=== PATIENT | male | born 1965 | race Caucasian/White ===

== ENCOUNTER 2016-11-11 18:06 | Inpatient (IN) ==
[2016-11-11] MEDS ORDERED: Furosemide 40 MG/4 ML VIAL IVP ONE (20:38)
--- NOTE | 2016-11-11 20:43 | Emergency Department Note ---
Disposition Clinical Impression: Elevated troponin CHF exacerbation Qualifiers: Congestive heart failure type: unspecified congestive heart failure type Qualified Code(s): I50.9 - Heart failure, unspecified Disposition: Admitted As Inpatient Condition: Good Time of Disposition: 23:17 SOB HPI - General Chief Complaint: ED Shortness of Breath/Dyspnea Stated Complaint: swollen/sob Time Seen by Provider: 11/11/16 20:39 Source: patient Mode of arrival: ambulatory Limitations: no limitations Nursing Notes Reviewed: Yes Vital Signs Reviewed: Yes - History of Present Illness 51 year old male with HX of CHF and CAD states taht he was seen by his primary care doctor and sent in for CHF evaluation. Patient states that the last itme her was admitted to the hospital for his CHF was a few months ago. Giselle states that today is not as severe as it has been in the past. Gina states he has chest pain midsteral and pressure type and does feel increasingl dyspneic without being hypoxic. he does not wear oxygen at home; dyspnea is worse with exertion. Giselle states that he has had increased swelling to the lower extremities and that his abdomen feels more swollen than usual. Giselle takes 40mg Lasix a day. - Related Data Home Medications Medication Instructions Recorded Confirmed Hydroxyzine HCl 25 mg PO Q8H 02/10/16 11/11/16 Insulin ASPART [NovoLOG] 10 unit SQ PRN PRN 02/11/16 11/11/16 Insulin Glargine [Lantus] 30 units SQ HS 02/11/16 11/11/16 Potassium Chloride [Klor-Con 10] 10 meq PO DAILY 06/17/16 11/11/16 Iron Polysaccharide Complex 150 mg PO DAILY 07/09/16 11/11/16 [Ferrex 150] Isosorbide MONOnitrate (24 HR) 60 mg PO DAILY 07/09/16 11/11/16 [Imdur] Atorvastatin [Lipitor] 40 mg PO HS 11/11/16 11/11/16 Cholecalciferol (Vitamin D3) 2,000 unit PO DAILY 11/11/16 11/11/16 [Vitamin D] Spironolactone [Aldactone] 50 mg PO DAILY 11/11/16 11/11/16 Previous Rx's Medication Instructions Recorded Aspirin Enteric Coated [Aspirin EC] 81 mg PO DAILY #90 tablet. 08/22/15 Sertraline [Zoloft] 50 mg PO DAILY #60 tablet 08/22/15 Furosemide [Lasix] 40 mg PO DAILY #30 tablet 02/14/16 Metoprolol [Lopressor] 75 mg PO BID #60 tablet 02/14/16 Allergies Allergy/AdvReac Type Severity Reaction Status Date / Time No Known Allergies Allergy Verified 11/11/16 18:28 Constitutional: Denies: fever, chills, weakness, weight change Eyes: Denies: eye pain, eye discharge, vision change ENT ED: Denies: ear pain, throat pain, dental pain, hearing loss, epistaxis, congestion, dysphagia Cardiovascular: Reports: chest pain, dyspnea on exertion. Denies: palpitations , edema, syncope Respiratory: Reports: cough, dyspnea. Denies: wheezes, hemoptysis, stridor Gastrointestinal: Denies: abdominal pain, nausea, vomiting, diarrhea, constipation, hematemesis, melena, hematochezia Genitourinary: Denies: urgency, dysuria, frequency, hematuria Musculoskeletal: Denies: back pain, neck pain, arthralgia, myalgia Integumentary: Denies: rash, abrasion, lesions Neurological: Denies: headache, weakness, numbness, paresthesias, confusion, abnormal gait, vertigo Psychiatric: Denies: anxiety, depression, suicidal thoughts, homicidal thoughts , auditory hallucinations, visual hallucinations Endocrine: Denies: fatigue Hematological/Lymphatic: Denies: easy bleeding, easy bruising Allergic/Immunologic: Denies: facial swelling, urticaria Past Medical History - Past Medical History Medical history: Reports: CHF, CVA, diabetes, hyperlipidemia, hypertension, renal disease, TIA Surgical history: Reports: appendectomy, cholecystectomy, orthopedic, other ( Back surgery, ACL repair), other (Facial plastic repair) Psychiatric history: Reports: anxiety, depression - Social History Smoking Status: Former smoker Smokeless Tobacco Status: No Alcohol use: Reports: none Drug use: Reports: none Physical Exam - General Limitations: no limitations General appearance: alert, in no apparent distress - Head Head exam: atraumatic, normocephalic, normal inspection - Eye Eye exam: Present: normal appearance, PERRL, EOMI - Expanded Eye Exam Pupils: Left: reactive - ENT ENT exam: normal exam, normal oropharynx, mucous membranes moist, other (facial reconstruction of nose and mouth; chronic) - Expanded ENT Exam External ear exam: Present: normal external inspection Mouth exam: Present: normal external inspection Teeth exam: Present: normal inspection Throat exam: Present: normal inspection - Neck Neck exam: Present: normal inspection, full ROM, trachea midline - Chest Chest inspection: Present: normal inspection, symmetric chest wall rise - Respiratory Respiratory exam: Present: normal lung sounds bilaterally - Cardiovascular Cardiovascular exam: Present: regular rate, normal rhythm, normal heart sounds - Abdominal Exam Abdominal exam: Present: soft, Non-Tender. Absent: tenderness, distention, guarding, rebound, rigidity - Extremities Exam Extremities exam: Present: normal inspection, full ROM. Absent: tenderness, pedal edema - Expanded Upper Extremity Exam Shoulder exam: Present: normal inspection, full ROM Arm exam: Present: normal inspection, full ROM Elbow exam: Present: normal inspection, full ROM Forearm/Wrist exam: Present: normal inspection, full ROM Hand exam: Present: normal inspection, full ROM Vascular exam: Normal: capillary refill, radial pulse - Expanded Lower Extremity Exam Hip/Pelvis exam: Present: normal inspection, full ROM Upper leg exam: Present: normal inspection, full ROM Knee exam: Present: normal inspection, full ROM Lower leg exam: Present: normal inspection, full ROM, swelling (pedal edema (+) 3) Ankle exam: Present: normal inspection, full ROM Foot/toe exam: Present: normal inspection, full ROM Neurovascular/Tendon exam: Absent: motor deficit, sensory deficit, tendon deficit - Back Exam Back exam: Present: normal inspection, full ROM. Absent: tenderness - Neurological Exam Neurological exam: Present: alert, oriented X3 - Expanded Neurological Exam Patient oriented to: Present: person, place, time Coma Scale Eye Opening: Spontaneous Coma Scale Motor Response: Obeys Commands Coma Scale Verbal Response: Oriented Coma Scale Total: 15 - Psychiatric Psychiatric exam: Present: normal affect, normal mood - Skin Skin exam: Present: warm, dry, intact, normal color Course Course Narrative: we will do a cardiac workup on patient and IV lasix therapy - Reevaluation(s) Reevaluation #1: updated patinet and family on results and they are agreeable to admission. Time: 23:16 - Consultations Consultation #1: discussed case wibernice Meyers and he accepts patiet for admission Time: 23:16 Vital Signs Temperature 97.6 F 11/11/16 18:25 Pulse Rate 72 11/11/16 18:25 Respiratory Rate 16 11/11/16 18:25 Blood Pressure 129/83 11/11/16 18:25 O2 Sat by Pulse Oximetry 98 11/11/16 18:25 Temperature 98.5 F 11/12/16 00:11 Pulse Rate 75 11/12/16 00:11 Respiratory Rate 17 11/12/16 00:11 Blood Pressure 171/112 11/12/16 00:11 O2 Sat by Pulse Oximetry 98 11/12/16 00:11 Oxygen Delivery Oxygen Delivery Room Air Shortness of Breath/Dyspnea - Lab Data Result diagrams: 11/11/16 20:27 11/11/16 20:27 Lab Results 11/11/16 11/11/16 11/11/16 Range/Units 20:27 20: 20:27 WBC 6.5 (4.3-11.1) K/mcL RBC 3.91 L (4.19-5.50) M/mcL Hgb 10.0 L (12.9-16.9) g/dL Hct 32.8 L (37.5-50.1) % MCV 83.9 (83.0-100.0) fL MCH 25.6 L (28.0-33.3) pg MCHC 30.5 L (31.6-35.5) g/dL RDW 15.4 H (11.5-14.5) % Plt Count 251 (140-400) K/mcL MPV 11.5 (9.4-12.4) fL Immature Gran % 0.6 (0-4) % Seg Neutrophils % 67.3 % Lymphocytes % 21.0 % Monocytes % 9.1 % Eosinophils % 1.4 % Basophils % 0.6 % Neutrophils # 4.4 (1.6-8.9) K/mcL Lymphocytes # 1.4 (0.6-4.6) K/mcL Monocytes # 0.6 (0.0-1.3) K/mcL Eosinophils # 0.1 (0.0-0.6) K/mcL Basophils # 0.0 (0.0-0.2) K/mcL PT 12.3 H (9.4-12.1) Seconds INR 1.1 APTT 28.9 (26.0-36.0) Seconds Sodium 143 (136-145) mEq/L Potassium 3.5 (3.5-4.5) mEq/L Chloride 111 H (98-109) mEq/L Carbon Dioxide 23 (19-29) mEq/L BUN 30 H (8-26) mg/dL Creatinine 1.80 H (0.72-1.25) mg/dL Est GFR ( Amer) 48 L (> 60) Est GFR (Non-Af Amer) 40 L (> 60) BUN/Creatinine Ratio 17 (6-26) Glucose 62 L (70-99) mg/dL Calculated Osmolality 300 (280-300) Calcium 8.6 (8.6-10.8) mg/dL Troponin I (0-0.03) ng/mL B-Natriuretic Peptide (0-100) pg/mL 11/11/16 11/11/16 Range/Units 20:27 20:27 WBC (4.3-11.1) K/mcL RBC (4.19-5.50) M/mcL Hgb (12.9-16.9) g/dL Hct (37.5-50.1) % MCV (83.0-100.0) fL MCH (28.0-33.3) pg MCHC (31.6-35.5) g/dL RDW (11.5-14.5) % Plt Count (140-400) K/mcL MPV (9.4-12.4) fL Immature Gran % (0-4) % Seg Neutrophils % % Lymphocytes % % Monocytes % % Eosinophils % % Basophils % % Neutrophils # (1.6-8.9) K/mcL Lymphocytes # (0.6-4.6) K/mcL Monocytes # (0.0-1.3) K/mcL Eosinophils # (0.0-0.6) K/mcL Basophils # (0.0-0.2) K/mcL PT (9.4-12.1) Seconds INR APTT (26.0-36.0) Seconds Sodium (136-145) mEq/L Potassium (3.5-4.5) mEq/L Chloride (98-109) mEq/L Carbon Dioxide (19-29) mEq/L BUN (8-26) mg/dL Creatinine (0.72-1.25) mg/dL Est GFR ( Amer) (> 60) Est GFR (Non-Af Amer) (> 60) BUN/Creatinine Ratio (6-26) Glucose (70-99) mg/dL Calculated Osmolality (280-300) Calcium (8.6-10.8) mg/dL Troponin I 0.21 H* (0-0.03) ng/mL B-Natriuretic Peptide 2773 H (0-100) pg/mL - EKG Data EKG attestation: Yes I reviewed and interpreted this EKG. EKG results narrative: NSR with rate of 73. NO STEMiI. LAE. no change from 02/10/16. normal intervals. 1833 Critical Care Time Critical Care Time: Yes Total Critical Care Time: 35 Attestation: Critical care performed: Time is exclusive of separately billable procedures. Time includes: direct patient care, patient reassessment, coordination of patient care, interpretation of data (laboratory data, radiology data, and respiratory data), review of patient's medical records, medical consultation and documentation of patient care. Procedures included in critical care time: Procedures excluded from critical care time: Attestation Statement - Attestation Attestation: I, Osman Agarwal MD, personally evaluated this patient and discussed their management with the resident physician. I reviewed the resident's note and agree with the documented findings, medical decision making, and plan of care. 51-year-old male presents to the emergency department with complaint of some increasing swelling of his lower extremities over the past month and also primarily complains of increasing shortness of breath over the past 2 weeks. He states he is been unable to lie flat at night due to shortness of breath. He does admit to some mid substernal chest pressure and discomfort intermittently but denies any chest pain at present. No cough or fever. Patient was seen today by his PCP and referred here for evaluation. On examination patient is a well-developed well-nourished male in no acute distress he is alert and oriented 3. There is no cyanosis or diaphoresis. Patient does appear very pale. Chest is nontender to palpation. Breath sounds are slightly decreased in the bases bilaterally but equal bilaterally with no rales or wheezes noted. Heart regular rate and rhythm. Abdomen is soft and nontender with normal bowel sounds. 2+ pitting edema of the lower extremities bilaterally. Labs reviewed. Elevated troponin noted at 0.21. BNP 2773. Chest x-ray shows bilateral pleural effusions with bibasilar airspace disease, atelectasis versus pneumonia. No acute ischemic changes on EKG. The hospitalist, Dr. Meyers, was consulted and accepted admission of the patient.
[2016-11-11 21:04] LABS: Basophils % 0.6 %; Eosinophils # 0.1 K/mcL (0.0-0.6); Eosinophils % 1.4 %; Hematocrit 32.8 % (37.5-50.1); Immature Granulocytes % 0.6 % (0-4); Lymphocytes # 1.4 K/mcL (0.6-4.6); Mean Corpuscular HGB Conc 30.5 g/dL (31.6-35.5); Mean Corpuscular Hemoglobin 25.6 pg (28.0-33.3); Mean Corpuscular Volume 83.9 fL (83.0-100.0); Mean Platelet Volume 11.5 fL (9.4-12.4); Monocytes # 0.6 K/mcL (0.0-1.3); Monocytes % 9.1 %; Neutrophils # 4.4 K/mcL (1.6-8.9); Platelet Count 251 K/mcL (140-400); Red Blood Count 3.91 M/mcL (4.19-5.50); Red Cell Distribution Width 15.4 % (11.5-14.5); Segmented Neutrophils % 67.3 %
[2016-11-11 21:10] LABS: INR 1.1; Prothrombin Time 12.3 Seconds (9.4-12.1)
[2016-11-11 21:13] LABS: Activated Partial Thrombo Time 28.9 Seconds (26.0-36.0)
[2016-11-11 21:17] LABS: Calcium 8.6 mg/dL (8.6-10.8); Potassium 3.5 mEq/L (3.5-4.5)
[2016-11-11] MEDS ORDERED: Aspirin 81 MG TAB.CHEW PO ONE (21:31)
--- NOTE | 2016-11-11 23:40 | Internal Med History&Physical ---
<Adam Hargrove - Last Filed: 11/12/16 08:53> Date of Encounter: 11/11/16 Time of Encounter: 23:38 Assessment and Plan (1) CHF (congestive heart failure) Current visit: Yes Status: Acute Significant pitting edema. Anasarca. BNP elevated. Not in significant distress -Cr elevated. However, feel its important to administer lasix. -ECHO on 11/20/15 shows 50% EV and moderate diastolic dysfunction -Consider metolazone or other diuretic Plan -Lasix, fluid resitrictions. Strict I and O. -ECHO to evaluate changes Qualifiers: Congestive heart failure type: diastolic Congestive heart failure chronicity: unspecified congestive heart failure chronicity Qualified Code(s) : I50.30 - Unspecified diastolic (congestive) heart failure (2) Suicide ideation Current visit: Yes Status: Acute -Patient states that he has had pervious thoughts of suicide, but does not have current thoughts of suicide -has spoken to medical delivery technician in the past, does not wish to talk to another professional about it -Patient not having current thoughts of suicide or harming others. Do not feel like its needed to have suicide precautions. -Did talk with psychiatry consult. They are aware and agree its not necessary to put patient on active suicide precautions (3) CKD (chronic kidney disease), stage III Current visit: Yes Status: Acute -Sees Dr. Sepulveda -Per patient last appointment a couple of months ago -CKD due to uncontrolled DM vs nephrotoxic drugs Plan -Stop renal toxic drugs (4) Diabetes Current visit: No Status: Chronic -Continue home medication-insulin Qualifiers: Diabetes mellitus type: type 2 Diabetes mellitus complication status: with circulatory complication Diabetes mellitus complication detail: with other circulatory complications Diabetes mellitus residential insulin use: with technician terminal and repeater use Qualified Code(s): E11.59 - Type 2 diabetes mellitus with other circulatory complications; Z79.4 - correction (current) use of insulin (5) DVT prophylaxis Current visit: No Status: Acute -Hold for now due to anemia (6) Elevated troponin Current visit: Yes Status: Acute -Elevated. Due to CKD III. Patient not complaining of CP. EKG no changes. -No need for cardio consult at this time. Will trend trop. (7) Anemia Current visit: Yes Status: Acute -Lower Hgb compared to previous -Patient complains of dark stools -Will get stool studies -Colonoscopy within 3 months that only showed polyps with repeat in 5-10 years -Did not see EGD. Consider getting EDG and starting protonix -Anemia due to CKD? History of iron deficiency anemia? Plan -Trend H and H. Transfuse if <7 and GI consult for EGD. -Await occult stool test -Get iron studies Qualifiers: Anemia type: unspecified type Qualified Code(s): D64.9 - Anemia, unspecified Internal Medicine - H&P: HPI Chief complaint: SOB, bilateral swollen legs Admitted From: Emergency Dept Plans for Post Hospital Care: Home History of present illness: Mr. Richter is a 51 year old male, PMH CHF, CAD, DM, CVA, HLD, HTN, CKD III, c/ c worsening bilateral pitting edema and SOB. Edema began 1 month ago and SOB began 2 weeks ago. SOB worse with activity and when laying flat. Relieved by sitting up and staying still. Denies F/N/V/CP/Abdominal pain/flank pain/urinary complaints/extremity pain. Did admit to chest discomfort in the ED, but no longer has that. He had previous admission for CHF exacerbation last year. Prescribed lasix. Has been taking medication. He was sent here from his PCP's office. Past Med Surg Social Fam HX - Past Medical History Medical history: CHF, CVA, diabetes, hyperlipidemia, hypertension, renal disease , TIA Psychiatric history: anxiety, depression - Past Surgical History Surgical History: appendectomy, cholecystectomy, orthopedic, other (Back surgery , ACL repair), other (Facial plastic repair) - Social History Smoking Status: Former smoker Smokeless Tobacco Status: No Alcohol use: none Drug use: none - Family History Father Living Status: Hx Family Cardiac Disorders: Yes Hx Family Respiratory Disorders: No Hx Family Cancer: No Hx Family GI Disorders: No Hx Family Endocrine Disorder: No Hx Family Neuromuscular Disorders: No Hx Family Neurologic Disorders: No Hx Family HEENT Disorders: No Hx Family Autoimmune Disorders: No Mother Family Member Ethnicity: Non- Twin of Family Member: Yes, Fraternal Living Status: Hx Family Cardiac Disorders: Yes Hx Family Respiratory Disorders: No Hx Family Cancer: No Hx Family GI Disorders: Yes Hx Family Endocrine Disorder: Yes Hx Family Neuromuscular Disorders: Yes Hx Family Neurologic Disorders: No Hx Family HEENT Disorders: No Hx Family Autoimmune Disorders: No Internal Medicine - H&P: Meds Aspirin Enteric Coated [Aspirin EC] 81 mg PO DAILY #90 tablet. 08/22/15 [Rx] Sertraline [Zoloft] 50 mg PO DAILY #60 tablet 08/22/15 [Rx] Hydroxyzine HCl 25 mg PO Q8H 02/10/16 [History] Insulin ASPART [NovoLOG] 10 unit SQ PRN PRN 02/11/16 [History] Insulin Glargine [Lantus] 30 units SQ HS 02/11/16 [History] Furosemide [Lasix] 40 mg PO DAILY #30 tablet 02/14/16 [Rx] Metoprolol [Lopressor] 75 mg PO BID #60 tablet 02/14/16 [Rx] Potassium Chloride [Klor-Con 10] 10 meq PO DAILY 06/17/16 [History] Iron Polysaccharide Complex [Ferrex 150] 150 mg PO DAILY 07/09/16 [History] Isosorbide MONOnitrate (24 HR) [Imdur] 60 mg PO DAILY 07/09/16 [History] Atorvastatin [Lipitor] 40 mg PO HS 11/11/16 [History] Cholecalciferol (Vitamin D3) [Vitamin D] 2,000 unit PO DAILY 11/11/16 [History] Spironolactone [Aldactone] 50 mg PO DAILY 11/11/16 [History] Allergies No Known Allergies Allergy (Verified 11/11/16 18:28) All Systems PM: A 10-system review of systems was performed and is negative for pertinent findings except as documented above in the HPI. - Constitutional Constitutional: no chills, no fever(s), no night sweats - Cardiovascular Cardiovascular ROS IM: other (admitted to discomfort in ED, however not having discomfort now. ), no chest pain, no diaphoresis, no dyspnea, no lightheadedness , no palpitations, no syncope - Constitutional Vitals: Temp Pulse Resp BP Pulse Ox 97.6 F 82 20 142/90 100 11/11/16 18:25 11/11/16 22:39 11/11/16 22:39 11/11/16 22:39 11/11/16 22:39 General appearance: Present: A&O X 3, no acute distress, answers questions appropriately - Head Head exam: Absent: atraumatic Additional comments: Plastic surgery on face. 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 - Respiratory Respiratory exam: Present: rales (mild), wheezes - Cardiovascular Cardiovascular exam: Present: RRR, +S1, +S2. Absent: diastolic murmur, gallop, rubs, systolic murmur - GI/Abdominal GI/Abdominal exam: Present: normal bowel sounds, soft, no peritoneal signs Additional comments: Harden area on the umbilicus that was not there previously. Tender sometimes. - Expanded Lower Extremities Exam 1 - pitting edema - Psychiatric Psychiatric exam: Present: suicidal ideation (per nurse, patient had thoughts of harming himself. Doesnt now. ) - Other Additional findings: marked pitting edema from Mid thigh and down. Sever in the feet. -No CVA tenderness. Urinal:yellow, no hematuria noted or clots. Internal Med - H&P Results - Labs CBC & Chem 7: 11/12/16 04:50 11/12/16 04:50 Labs: Short CBC 11/11/16 Range/Units 20:27 WBC 6.5 (4.3-11.1) K/mcL Hgb 10.0 L (12.9-16.9) g/dL Hct 32.8 L (37.5-50.1) % Plt Count 251 (140-400) K/mcL Neutrophils # 4.4 (1.6-8.9) K/mcL BMP 11/11/16 20:27 Sodium 143 Potassium 3.5 Chloride 111 H Carbon Dioxide 23 BUN 30 H Creatinine 1.80 H Glucose 62 L Calcium 8.6 Cardiac Enzymes 11/11/16 Range/Units 20:27 Troponin I 0.21 H* (0-0.03) ng/mL - Impressions ITS Impressions Chest X-Ray 11/11/16 18:31 IMPRESSION: Bilateral pleural effusions with associated basilar airspace disease, atelectasis versus pneumonia. D/ / Bernabe Espinal MD / Bernabe Espinal MD Interpreting Provider: Bernabe Espinal MD <Jarad Conrad - Last Filed: 11/17/16 05:50> Date of Encounter: 11/11/16 Internal Medicine - H&P: HPI Admitted From: Emergency Dept Plans for Post Hospital Care: Home History of present illness: Mr. Richter is a 51 year old male admitted to [facility] via the emergency department presented with concerns with generalized edema and difficulty breathing. Preliminary impressions suggest acute on chronic combined systolic and diastolic congestive heart failure exacerbation. Concomitant demand ischemia of myocardium with troponin elevation type II non- ST elevation [place] with associated stage III ELVIA/CKD. The patient presents increased risk for major acute coronary event, further acute clinical decline and morbidity due to his presenting chief complaints, clinical findings and comorbidities. Workup and treatments will proceed comprehensively. The patient was visited and interviewed and examined. I examined this patient and my medical decision-making was reviewed with the Resident Physician, Dr. Adam Hargrove. For this encounter, I have reviewed the documentation, treatment plan, and medical decision making. I have had face to face time with this patient. Cumulative laboratory and radiographic database was reviewed and considered and discussed. I agree with the documented findings, disposition and treatment plan as described except to the extent set forth below. Acute coronary syndrome and acute heart failure decompensation protocols/ surveillance initiated. Plan of care has been reviewed and discussed in detail with patient. Questions addressed. Consultative opinions will be sought as clinical circumstances justify. Hospital course will be dependent upon clinical findings, treatment response and /or consultative interventions. Given the patient's presenting concerns, past medical history, clinical findings and symptoms, he is admitted at this time to undergo further evaluation and disposition. Condition is serious. Prognosis is guarded. CODE STATUS is full. Past Med Surg Social Fam HX - Past Medical History Source: old records reviewed Medical history: arthritis, CHF, CVA, diabetes, hyperlipidemia, hypertension, renal disease, TIA, other Psychiatric history: anxiety, depression, other - Past Surgical History Surgical History: appendectomy, cholecystectomy, orthopedic, other, other - Social History Smoking Status: Former smoker Alcohol use: none, unknown Drug use: none, unknown Occupational status: unemployed Current living situation: Home, With Family Activity Level: Independent ambulation, Mostly sedentary Recent Out of Country Travel Within the Last 8 Weeks: No Exposure or Possible Exposure to Illness During Travel: No All Systems PM: A 10-system review of systems was performed and is negative for pertinent findings except as documented above in the HPI. - Constitutional Constitutional: as per HPI - EENT Eyes: as per HPI Ears: as per HPI Nose, mouth and throat: as per HPI - Cardiovascular Cardiovascular ROS IM: as per HPI - Respiratory Respiratory: as per HPI - Gastrointestinal Gastrointestinal: as per HPI - Genitourinary Genitourinary ROS male: as per HPI - Musculoskeletal Musculoskeletal ROS IM: as per HPI - Integumentary Integumentary IM: as per HPI - Neurological Neurological ROS: as per HPI - Psychiatric Psychiatric: as per HPI - Endocrine Endocrine IM: as per HPI - Hematologic/Lymphatic Hematologic/Lymphatic: as per HPI - Allergic/Immunologic Allergic/Immunologic: as per HPI - Constitutional Vitals: Temp Pulse Resp BP Pulse Ox 97.2 F L 74 16 148/100 96 11/12/16 07:12 11/12/16 07:12 11/12/16 07:12 11/12/16 07:12 11/12/16 07:12 Vital Signs Temp Pulse Resp BP Pulse Ox 11/12/16 07:12 97.2 F L 74 16 148/100 96 11/12/16 04:39 98.5 F 70 26 89 11/12/16 00:11 98.5 F 75 17 171/112 98 11/11/16 23:54 98 11/11/16 23:42 20 107/55 11/11/16 22:39 82 20 142/90 100 11/11/16 21:44 74 18 139/95 94 11/11/16 21:23 75 18 146/96 95 11/11/16 20:57 73 18 130/95 97 11/11/16 18:25 97.6 F 72 16 129/83 98 Intake and Output 11/11/16 11/12/16 11/12/16 23:59 07:59 15:59 Intake Total 360 / 360 Output Total 1200 / 1200 400 / 400 Balance -1200 / -1200 -40 / -40 Intake: Oral 360 / 360 Output: Urine 1200 / 1200 400 / 400 Other: Meal Breakfast Percent of Meal Consumed 100% Weight 88.451 kg 87 kg Blood Glucose* 99 Patient Weight 11/12/16 23:59 Weight 87 kg Internal Med - H&P Results - Labs CBC & Chem 7: 11/17/16 04:52 11/17/16 04:52 Labs: Short CBC 11/12/16 Range/Units 04:50 Hgb 10.2 L (12.9-16.9) g/dL Hct 34.2 L (37.5-50.1) % BMP 11/12/16 04:50 Sodium 142 Potassium 3.7 Chloride 109 Carbon Dioxide 23 BUN 30 H Creatinine 1.84 H Glucose 124 H Calcium 8.5 L Liver Function 11/12/16 Range/Units 04:50 Total Bilirubin 0.6 (0.2-1.2) mg/dL Direct Bilirubin 0.3 (0.0-0.5) mg/dL AST 13 (5-34) Units/L ALT 11 (0-55) Units/L Alkaline Phosphatase 95 (38-126) Units/L Albumin 2.9 L (3.5-5.0) g/dL Abnormal lab results RBC 3.91 M/mcL (4.19-5.50) L 11/11/16 20:27 Hgb 10.2 g/dL (12.9-16.9) L 11/12/16 04:50 Hct 34.2 % (37.5-50.1) L 11/12/16 04:50 MCH 25.6 pg (28.0-33.3) L 11/11/16 20:27 MCHC 30.5 g/dL (31.6-35.5) L 11/11/16 20:27 RDW 15.4 % (11.5-14.5) H 11/11/16 20:27 PT 12.3 Seconds (9.4-12.1) H 11/11/16 20:27 BUN 30 mg/dL (8-26) H 11/12/16 04:50 Creatinine 1.84 mg/dL (0.72-1.25) H 11/12/16 04:50 Est GFR ( Amer) 47 (> 60) L 11/12/16 04:50 Est GFR (Non-Af Amer) 39 (> 60) L 11/12/16 04:50 Glucose 124 mg/dL (70-99) H 11/12/16 04:50 Calculated Osmolality 302 (280-300) H 11/12/16 04:50 Calcium 8.5 mg/dL (8.6-10.8) L 11/12/16 04:50 Iron 28 mcg/dL (65-175) L 11/12/16 04:50 % Saturation 10 % (20-55) L 11/12/16 04:50 Troponin I 0.21 ng/mL (0-0.03) H* 11/11/16 20:27 B-Natriuretic Peptide 2773 pg/mL (0-100) H 11/11/16 20:27 Albumin 2.9 g/dL (3.5-5.0) L 11/12/16 04:50 Albumin/Globulin Ratio 0.9 (1.1-2.2) L 11/12/16 04:50 Chest X-Ray 11/11/16 18:31 IMPRESSION: Bilateral pleural effusions with associated basilar airspace disease, atelectasis versus pneumonia. D/ / Bernabe Espinal MD / Bernabe Espinal MD Interpreting Provider: Bernabe Espinal MD - Attending Attestation My signature below is to certify that this patient is under my care and that I, or the Resident Physician working with me, has had a [id number] encounter with this patient.
[2016-11-12] MEDS ORDERED: Furosemide 40 MG/4 ML VIAL IVP ONE (01:03)
[2016-11-12] MEDS: hydrOXYzine pamoate 25 MG CAPSULE PO SCH ×3 (02:44→16:48)
[2016-11-12 06:28] LABS: Hematocrit 34.2 % (37.5-50.1); Hemoglobin 10.2 g/dL (12.9-16.9)
[2016-11-12 06:47] LABS: Albumin 2.9 g/dL (3.5-5.0); Albumin/Globulin Ratio 0.9 (1.1-2.2); Bilirubin,Direct 0.3 mg/dL (0.0-0.5); Bilirubin,Indirect 0.3 mg/dL (0.0-1.2); Bilirubin,Total 0.6 mg/dL (0.2-1.2); Calcium 8.5 mg/dL (8.6-10.8); Globulin 3.3 g/dL (2.4-3.5); Potassium 3.7 mEq/L (3.5-4.5); Total Protein 6.2 g/dL (6.0-8.3)
[2016-11-12] MEDS ORDERED: Perflutren Lipid Microsphere 1.3 ML in 0.9 % Sodium Chloride 8.7 ML IVP ONE (06:50)
[2016-11-12] MEDS: Iron Polysaccharide Complex 150 MG CAPSULE PO SCH (08:11)
[2016-11-12] MEDS: Isosorbide MONOnitrate (24 HR) 60 MG TAB.ER.24H PO SCH (08:11)
[2016-11-12] MEDS: Cholecalciferol (D-3) 1,000 UNIT TABLET PO SCH (08:12)
[2016-11-12] MEDS ORDERED: Insulin LISPRO 300 UNITS/3 ML VIAL SQ PRN (09:00)
[2016-11-12] MEDS ORDERED: *HR* OxyCODONE Immed Rel 5 MG TABLET PO PRN (09:32)
[2016-11-12] MEDS ORDERED: Acetaminophen 325 MG TABLET PO PRN (09:32)
[2016-11-12] MEDS ORDERED: *HR* Promethazine 25 MG/ML VIAL IVP PRN (09:32)
[2016-11-12] MEDS ORDERED: *HR* Morphine 2 MG/ML SYRINGE IVP PRN (09:32)
[2016-11-12] MEDS ORDERED: Naloxone 0.4 MG/ML INJ IVP PRN (09:32)
[2016-11-12] MEDS ORDERED: Benzonatate 100 MG CAPSULE PO PRN (09:40)
[2016-11-12] MEDS ORDERED: Ipratropium/Albuterol Neb 3 ML IH PRN (09:40)
[2016-11-12] MEDS ORDERED: Albuterol 2.5 MG/3 ML NEBULIZER IH PRN (09:40)
[2016-11-12] MEDS ORDERED: Pantoprazole 40 MG VIAL IVP SCH (09:45)
[2016-11-12 10:41] LABS: Hematocrit 32.1 % (37.5-50.1); Hemoglobin 9.9 g/dL (12.9-16.9)
--- NOTE | 2016-11-12 12:53 | ECHO - Doppler Report ---
Echocardiogram Name: Neema Richter Date of Study: 11/12/2016 Date: 1965 Ht: 71.0 in Medical Record#: [id number] Age: 51 Wt: 191.0 lb Gender: Male BSA: 2.07 Order #: [id number] Location: [facility] Room #: [id number] Reading Physician: Francisco Javier Byrd DO, OPAL AGUILAR FASNC [employer] Trades Worker: Rosario Myers Ordering Physician: Adam Hargrove DO Primary Physician: Belem Arroyo CNP Indications: Congestive heart failure, Elevated troponins Impressions: LVEF 35%. Normal LV chamber size. Mild concentric left ventricular hypertrophy. Segmental left ventricular systolic dysfunction. Moderate left ventricular diastolic dysfunction. Normal right ventricular size with mild hypokinesis. Mild mitral regurgitation. No evidence of pulmonary hypertension identified. RVSP not well obtained and could be underestimated. Pleural effusion noted. Compared to prior reports, LV function has decreased. Left Ventricular Wall Motion: Rest Echo Findings The apex, apical inferior, apical anterior, apical septal, apical lateral and mid anterior septal bhagat were hypokinetic. All other wall segments showed normal motion. Findings: Study Quality * Technically sub-optimal due to poor echocardiographic windows. ECG Findings * Normal sinus rhythm. Left Ventricle * LVEF 35%. * Normal LV chamber size. Mild concentric left ventricular hypertrophy. * Segmental left ventricular systolic dysfunction. * Moderate left ventricular diastolic dysfunction. Right Ventricle * Normal right ventricular size with mild hypokinesis. Left Atrium * Mildly dilated left atrium. Right Atrium * Mildly dilated right atrium. Interatrial Septum * Interatrial septum not well evaluated. Aortic Valve * Trileaflet aortic valve with normal function. * No aortic regurgitation. * No aortic stenosis. Mitral Valve * Normal mitral valve structure. * Mild mitral regurgitation. * No mitral stenosis. Tricuspid Valve * Normal tricuspid valve structure and function. * Trace tricuspid regurgitation. * No evidence of pulmonary hypertension identified. RVSP not well obtained and could be underestimated. Pulmonic Valve * Normal pulmonic valve structure and function. * No pulmonic regurgitation. Aorta * Normally sized aortic root. Pericardium * The pericardium appears normal. IVC * The IVC is dilated. * < 50% respiratory change. Pulmonary Artery * Normal visualized portions of the main pulmonary artery. Pleural Effusion * Pleural effusion noted. History Hypertension Diabetes Hypercholesteremia Family History of CAD 11/20/15 a Previous Echo was performed. Measurements: BP: 171/ 112 2D Normal Values RVIDd: 3.10 cm <2.7 cm IVSd: 1.60 cm 0.6 - 1.0 cm LVIDd: 5.00 cm 3.7 - 5.6 cm LVPWd: 1.30 cm 0.6 - 1.1 cm LVIDs: 4.20 cm 1.5 - 3.6 cm AO: 2.70 cm < 4.0 cm LA: 3.80 cm 2.0 - 4.0cm %FS: 16.00 cm >25 % LA volume: 27 Mitral Valve Peak E:.89 m/sec Peak A:.40 m/sec E/A Ratio:2.2 Peak E' Lat Ronald:5.46 cm/s Peak E' Med Ronald:4.39 cm/s E/E' Lat Ratio:16.3 E/E' Med Ratio:20.2 Tricuspid Valve TV Regurg Peak Grad: 17.00mmHg TV Regurg Peak Ronald: 2.05m/sec Updated by Francisco Javier Byrd DO, FACAngelia, JOSE JOSEPH on 11/12/2016 12:47:11 PM electronically signed on 11/12/2016 12:47:50 PM with status of Final Wall Motion Espitia: 1=Normal, 2=Hypokinesis, 3=Akinesis, 4=Dyskinesis, 5=Aneurysmal, 6=Hyperkinetic, X=Not Visualized (Blank)=Missing
[2016-11-12] MEDS ORDERED: Dextrose Gel 15 GM PO PRN ×2 (13:31)
[2016-11-12] MEDS ORDERED: D5% in Water 1,000 ML IVC PRN (13:31)
--- NOTE | 2016-11-12 14:56 | Consult Note ---
Date of Encounter: 11/12/16 Time of Encounter: 14:05 Assessment & Recommendation (1) Major depressive disorder, recurrent episode, unspecified Current visit: Yes Status: Acute Assessment & Recommendation: 1. Patient may benefit from brief hospitalization in psychiatry on a voluntary basis, this was discussed with the patient and he could not decide 2. Refer the patient to outpatient mental health 3. There are no acute psychiatric condition that require involuntary hospitalization at this time. Thank you for the consult Qualifiers: Major depression episode severity: unspecified Qualified Code(s): F33.9 - Major depressive disorder, recurrent, unspecified History of Present Illness Patient: new to practice Requesting Physician: Bo Montoya MD Reason for consult: Suicidal ideation History of present illness: Mr. Richter is a 51 year old male admitted to the hospital for treatment CHF, diabetes, elevated troponin and anemia. Psychiatric consultation was requested to evaluate suicidal ideation. Patient reports remote history of treatment for depression in [place], he moved to [place] 9 years ago and he believe his depression is triggered by his medical problems as listed and his medical history especially complication of diabetes. Patient denied any psychiatric hospitalization or suicide attempts in the past. He had sporadic outpatient therapy, none recent. He is taking antidepressant Zoloft by his primary care. CC: Bo Montoya MD Past Med Surg Social Fam HX - Past Medical History Medical history: arthritis, CHF, CVA, diabetes, hyperlipidemia, hypertension, renal disease, TIA, other - Past Surgical History Surgical History: appendectomy, cholecystectomy, orthopedic, other, other - Social History Smoking Status: Former smoker Smokeless Tobacco Status: No Alcohol use: none, unknown Drug use: none, unknown - Family History Father Living Status: Hx Family Cardiac Disorders: Yes Hx Family Respiratory Disorders: No Hx Family Cancer: No Hx Family GI Disorders: No Hx Family Endocrine Disorder: No Hx Family Neuromuscular Disorders: No Hx Family Neurologic Disorders: No Hx Family HEENT Disorders: No Hx Family Autoimmune Disorders: No Mother Family Member Ethnicity: Non- Twin of Family Member: Yes, Fraternal Living Status: Hx Family Cardiac Disorders: Yes Hx Family Respiratory Disorders: No Hx Family Cancer: No Hx Family GI Disorders: Yes Hx Family Endocrine Disorder: Yes Hx Family Neuromuscular Disorders: Yes Hx Family Neurologic Disorders: No Hx Family HEENT Disorders: No Hx Family Autoimmune Disorders: No Medications & Allergies Aspirin Enteric Coated [Aspirin EC] 81 mg PO DAILY #90 tablet. 08/22/15 [Rx] Sertraline [Zoloft] 50 mg PO DAILY #60 tablet 08/22/15 [Rx] Hydroxyzine HCl 25 mg PO Q8H 02/10/16 [History] Insulin ASPART [NovoLOG] 10 unit SQ PRN PRN 02/11/16 [History] Insulin Glargine [Lantus] 30 units SQ HS 02/11/16 [History] Furosemide [Lasix] 40 mg PO DAILY #30 tablet 02/14/16 [Rx] Metoprolol [Lopressor] 75 mg PO BID #60 tablet 02/14/16 [Rx] Potassium Chloride [Klor-Con 10] 10 meq PO DAILY 06/17/16 [History] Iron Polysaccharide Complex [Ferrex 150] 150 mg PO DAILY 07/09/16 [History] Isosorbide MONOnitrate (24 HR) [Imdur] 60 mg PO DAILY 07/09/16 [History] Atorvastatin [Lipitor] 40 mg PO HS 11/11/16 [History] Cholecalciferol (Vitamin D3) [Vitamin D] 2,000 unit PO DAILY 11/11/16 [History] Spironolactone [Aldactone] 50 mg PO DAILY 11/11/16 [History] Allergies No Known Allergies Allergy (Verified 11/11/16 18:28) Mental Status Exam Patient orientation: Yes Person, Yes Time, Yes Place Level of alertness: Alert Patient appearance: Appropriate, Unkempt, Disheveled, Mal-nourished, Thin Behavior: calm, cooperative Psychomotor activity: Slowed Eye contact: Minimal Contact Mood description: Depressed Affect description: congruent with mood, constricted Speech pattern: Normal rate, Normal rhythm, Normal tone Speech volume: Normal Thought process: Linear, Goal Oriented Thought content: No Suicidal ideation, No Homicidal ideation, No Overt delusions Perceptual disturbances: No Auditory hallucinations, No Visual hallucinations Attention span: Capable of Focused Attention Memory description: Grossly Intact Patient reliability: Reliable Historian Intelligence estimate: Average Judgment: Limited Insight: Partial Results - Vital Signs Vital signs: Temp Pulse Resp BP Pulse Ox 97.2 F L 74 16 148/100 96 11/12/16 07:12 11/12/16 07:12 11/12/16 07:12 11/12/16 07:12 11/12/16 07:12 - Labs Labs: Laboratory Last Values WBC 6.5 K/mcL (4.3-11.1) 11/11/16 20: RBC 3.91 M/mcL (4.19-5.50) L 11/11/16 20:27 Hgb 9.9 g/dL (12.9-16.9) L 11/12/16 10:32 Hct 32.1 % (37.5-50.1) L 11/12/16 10:32 MCV 83.9 fL (83.0-100.0) 11/11/16 20: MCH 25.6 pg (28.0-33.3) L 11/11/16 20: MCHC 30.5 g/dL (31.6-35.5) L 11/11/16 20: RDW 15.4 % (11.5-14.5) H 11/11/16 20: Plt Count 251 K/mcL (140-400) 11/11/16 20: MPV 11.5 fL (9.4-12.4) 11/11/16 20: Immature Gran % 0.6 % (0-4) 11/11/16 20: Seg Neutrophils % 67.3 % 11/11/16 20: Lymphocytes % 21.0 % 11/11/16 20: Monocytes % 9.1 % 11/11/16 20: Eosinophils % 1.4 % 11/11/16 20: Basophils % 0.6 % 11/11/16 20: Neutrophils # 4.4 K/mcL (1.6-8.9) 11/11/16 20: Lymphocytes # 1.4 K/mcL (0.6-4.6) 11/11/16 20: Monocytes # 0.6 K/mcL (0.0-1.3) 11/11/16 20: Eosinophils # 0.1 K/mcL (0.0-0.6) 11/11/16 20: Basophils # 0.0 K/mcL (0.0-0.2) 11/11/16 20: PT 12.3 Seconds (9.4-12.1) H 11/11/16 20: INR 1.1 11/11/16 20: APTT 28.9 Seconds (26.0-36.0) 11/11/16 20:27 Sodium 142 mEq/L (136-145) 11/12/16 04:50 Potassium 3.7 mEq/L (3.5-4.5) 11/12/16 04:50 Chloride 109 mEq/L (98-109) 11/12/16 04:50 Carbon Dioxide 23 mEq/L (19-29) 11/12/16 04:50 BUN 30 mg/dL (8-26) H 11/12/16 04:50 Creatinine 1.84 mg/dL (0.72-1.25) H 11/12/16 04:50 Est GFR ( Amer) 47 (> 60) L 11/12/16 04:50 Est GFR (Non-Af Amer) 39 (> 60) L 11/12/16 04:50 BUN/Creatinine Ratio 16 (6-26) 11/12/16 04:50 Glucose 124 mg/dL (70-99) H 11/12/16 04:50 POC Glucose 59 (58-89) 11/12/16 00:02 Calculated Osmolality 302 (280-300) H 11/12/16 04:50 Calcium 8.5 mg/dL (8.6-10.8) L 11/12/16 04:50 Iron 28 mcg/dL (65-175) L 11/12/16 04:50 % Saturation 10 % (20-55) L 11/12/16 04:50 Transferrin 203 mg/dL (174-364) 11/12/16 04:50 Ferritin 83 ng/ml (22-275) 11/12/16 04:50 Total Bilirubin 0.6 mg/dL (0.2-1.2) 11/12/16 04:50 Direct Bilirubin 0.3 mg/dL (0.0-0.5) 11/12/16 04:50 Indirect Bilirubin 0.3 mg/dL (0.0-1.2) 11/12/16 04:50 AST 13 Units/L (5-34) 11/12/16 04:50 ALT 11 Units/L (0-55) 11/12/16 04:50 Alkaline Phosphatase 95 Units/L (38-126) 11/12/16 04:50 Troponin I 0.21 ng/mL (0-0.03) H* 11/11/16 20:27 B-Natriuretic Peptide 2773 pg/mL (0-100) H 11/11/16 20:27 Serum Total Protein 6.2 g/dL (6.0-8.3) 11/12/16 04:50 Albumin 2.9 g/dL (3.5-5.0) L 11/12/16 04:50 Globulin 3.3 g/dL (2.4-3.5) 11/12/16 04:50 Albumin/Globulin Ratio 0.9 (1.1-2.2) L 11/12/16 04:50 Consult Discharge Plan - Plan Referrals: Belem Arroyo, HOME PLANNING CONSULTANT SALESPERSON [Primary Care Provider] -
--- NOTE | 2016-11-12 15:12 | Cardiology Consult Note ---
Date of Encounter: 11/12/16 Time of Encounter: 15:06 Assessment and Plan (1) Acute CHF Current Visit: Yes Status: Acute Acute systolic and diastolic CHF exacerbation. EF previously 50% in 2016, now 35% with moderate diastolic dysfunction. Worsening dyspnea and lower extremity edema. BNP 2773. CXR with pleural effusions. CKD stage III. Currently creatinine 1.84. Agree with IV diuresis with IV Lasix 40mg daily. Recommend strict I/O, daily weights, Na and fluid restriction. Recommend LHC given newly reduced EF. R/B/A discussed. Pt agrees to proceed during inpt stay. Currently he has conversational dyspnea and is unable to lie flat for cath. Multiple risk factors for CAD--HTN, HLD, DM, prior tobacco abuse, carotid disease (40-59% left ICA stenosis). Will continue to monitor. Decrease Aldactone due to renal function. Qualifiers: Congestive heart failure type: combined Qualified Code(s): I50.41 - Acute combined systolic (congestive) and diastolic (congestive) heart failure (2) Elevated troponin Current Visit: Yes Status: Acute Troponin 0.21 in setting of acute CHF exacerbation and CKD. Likely demand ischemia. Nondiagnostic for ACS. Trend for total of 3. ASA, Statin, BB. Will need LHC during stay for newly reduced EF. (3) Cardiomyopathy Current Visit: Yes Status: Acute EF previously 50%. Now 35% with regional wall motion abnormalities. Suspect ischemic given wall motion abnormalities and multiple risk factors for CAD. Switch BB to Toprol XL. No SHANAE-I/ARB due to renal function. Decrease Aldactone. On IV Lasix. Qualifiers: Cardiomyopathy type: unspecified Qualified Code(s): I42.9 - Cardiomyopathy , unspecified (4) Anemia Current Visit: Yes Status: Acute Lower Hgb compared to previous, 9.9, although has been this low in the past. Reported dark stools. Stool occult blood ordered. Colonoscopy within 3 months that only showed polyps with repeat in 5-10 years. No EGD noted. Continue to monitor. Management per primary team. Qualifiers: Anemia type: unspecified type Qualified Code(s): D64.9 - Anemia, unspecified Discussion w patient/family: The assessment and plan as outlined above was discussed with the patient and/or family members who expressed understanding and agreement. All questions were answered. Thank you for involving us in the care of your patient. Please call with any questions. I will discuss all the above with Dr. Ramirez and make changes as necessary. History of Present Illness Consult date: 11/12/16 Requesting physician: Bo Montoya Consult reason: CHF Chief complaint: dyspnea, lower extremity edema History of present illness: Mr. Richter is a 51 year old male with PMH of diastolic CHF, DM, CVA, HLD, HTN, CKD III, former tobacco abuse that presented to ED with worsening bilateral pitting edema and SOB. Edema began 1 month ago and SOB began 2 weeks ago. SOB worse with activity and when laying flat. Relieved by sitting up. Reports he has been having intermittent chest pain for the past 2 weeks, achy and sharp, midsternal, not associated with exertion. Currently chest pain free. Echo 2015 EF was 50%. Echo obtained this admission shows EF is reduced to 35% with regional wall motion abnormalities. BNP 2773, CXR with pleural effusions. Troponin 0.21. HGB 9.9. Reports his father from [place] at age 51. Pt has never had LHC. Past Med Surg Social Fam HX - Past Medical History Medical history: arthritis, CHF, CVA, diabetes, hyperlipidemia, hypertension, renal disease, TIA, other Psychiatric history: anxiety, depression, other - Past Surgical History Surgical History: appendectomy, cholecystectomy, orthopedic, other, other - Social History Smoking Status: Former smoker Smokeless Tobacco Status: No Alcohol use: none, unknown Drug use: none, unknown - Family History Father Living Status: Hx Family Cardiac Disorders: Yes Hx Family Respiratory Disorders: No Hx Family Cancer: No Hx Family GI Disorders: No Hx Family Endocrine Disorder: No Hx Family Neuromuscular Disorders: No Hx Family Neurologic Disorders: No Hx Family HEENT Disorders: No Hx Family Autoimmune Disorders: No Mother Family Member Ethnicity: Non- Twin of Family Member: Yes, Fraternal Living Status: Hx Family Cardiac Disorders: Yes Hx Family Respiratory Disorders: No Hx Family Cancer: No Hx Family GI Disorders: Yes Hx Family Endocrine Disorder: Yes Hx Family Neuromuscular Disorders: Yes Hx Family Neurologic Disorders: No Hx Family HEENT Disorders: No Hx Family Autoimmune Disorders: No Medications and Allergies Aspirin Enteric Coated [Aspirin EC] 81 mg PO DAILY #90 tablet. 08/22/15 [Rx] Sertraline [Zoloft] 50 mg PO DAILY #60 tablet 08/22/15 [Rx] Hydroxyzine HCl 25 mg PO Q8H 02/10/16 [History] Insulin ASPART [NovoLOG] 10 unit SQ PRN PRN 02/11/16 [History] Insulin Glargine [Lantus] 30 units SQ HS 02/11/16 [History] Furosemide [Lasix] 40 mg PO DAILY #30 tablet 02/14/16 [Rx] Metoprolol [Lopressor] 75 mg PO BID #60 tablet 02/14/16 [Rx] Potassium Chloride [Klor-Con 10] 10 meq PO DAILY 06/17/16 [History] Iron Polysaccharide Complex [Ferrex 150] 150 mg PO DAILY 07/09/16 [History] Isosorbide MONOnitrate (24 HR) [Imdur] 60 mg PO DAILY 07/09/16 [History] Atorvastatin [Lipitor] 40 mg PO HS 11/11/16 [History] Cholecalciferol (Vitamin D3) [Vitamin D] 2,000 unit PO DAILY 11/11/16 [History] Spironolactone [Aldactone] 50 mg PO DAILY 11/11/16 [History] Allergies No Known Allergies Allergy (Verified 11/11/16 18:28) All Systems Review: A 10-system review of systems was performed and is negative for pertinent findings except as documented above in the HPI. - Cardiovascular Cardiovascular: as per HPI, chest pain at rest, chest pain with exertion, dyspnea at rest, dyspnea on exertion, leg edema, orthopnea - Respiratory Respiratory: cough, dyspnea Physical Examination Vital Signs Temp Pulse Resp BP Pulse Ox 11/12/16 07:12 97.2 F L 74 16 148/100 96 11/12/16 04:39 98.5 F 70 26 89 11/12/16 00:11 98.5 F 75 17 171/112 98 11/11/16 23:54 98 11/11/16 23:42 20 107/55 11/11/16 22:39 82 20 142/90 100 11/11/16 21:44 74 18 139/95 94 11/11/16 21:23 75 18 146/96 95 11/11/16 20:57 73 18 130/95 97 11/11/16 18:25 97.6 F 72 16 129/83 98 Intake and Output 11/11/16 11/12/1617 23:59 07:59 15:59 Intake Total 600 / 600 Output Total 1200 / 1200 400 / 400 Balance -1200 / -1200 200 / 200 Intake: Oral 600 / 600 Output: Urine 1200 / 1200 400 / 400 Other: Meal Lunch Percent of Meal Consumed 100% Weight 88.451 kg 87 kg Blood Glucose* 99 102 Patient Weight 11/12/16 23:59 Weight 87 kg General: Conversant HEENT: Atraumatic, Normocephaly, Mucus Membranes Moist Cardiac: Reg Rate and Rhythm, Normal S1 and S2, No Murmur Lungs: Other (diminished, bibasilar rales) Neuro: Alert and responsive, No focal deficits noted Abdomen: Soft, Non-Tender Skin: No rashes noted on visualized skin Musculoskeletal: No Chest Wall Tenderness Extremities: Other (2+ BLE edema) Results 11/12/16 10:32 11/12/16 04:50 Lab Results 11/12/16 11/12/16 11/12/16 04:50 04:50 10:32 Hgb 10.2 L 9.9 L Hct 34.2 L 32.1 L Sodium 142 Potassium 3.7 Chloride 109 Carbon Dioxide 23 BUN 30 H Creatinine 1.84 H Glucose 124 H Calcium 8.5 L Total Bilirubin 0.6 AST 13 ALT 11 Alkaline Phosphatase 95 Short CBC 11/12/16 11/12/16 11/11/16 Range/Units 10:32 04:50 20:27 WBC 6.5 (4.3-11.1) K/mcL Hgb 9.9 L 10.2 L 10.0 L (12.9-16.9) g/dL Hct 32.1 L 34.2 L 32.8 L (37.5-50.1) % Plt Count 251 (140-400) K/mcL Neutrophils # 4.4 (1.6-8.9) K/mcL BMP 11/12/16 11/11/16 Range/Units 04:50 20:27 Sodium 142 143 (136-145) mEq/L Potassium 3.7 3.5 (3.5-4.5) mEq/L Chloride 109 111 H (98-109) mEq/L Carbon Dioxide 23 23 (19-29) mEq/L BUN 30 H 30 H (8-26) mg/dL Creatinine 1.84 H 1.80 H (0.72-1.25) mg/dL Glucose 124 H 62 L (70-99) mg/dL Calcium 8.5 L 8.6 (8.6-10.8) mg/dL Cardiac Enzymes 11/11/16 Range/Units 20:27 Troponin I 0.21 H* (0-0.03) ng/mL Liver Function 11/12/16 Range/Units 04:50 Total Bilirubin 0.6 (0.2-1.2) mg/dL Direct Bilirubin 0.3 (0.0-0.5) mg/dL AST 13 (5-34) Units/L ALT 11 (0-55) Units/L Alkaline Phosphatase 95 (38-126) Units/L Albumin 2.9 L (3.5-5.0) g/dL Impressions Chest X-Ray 11/11/16 18:31 IMPRESSION: Bilateral pleural effusions with associated basilar airspace disease, atelectasis versus pneumonia. D/ / Bernabe Espinal MD / Bernabe Espinal MD Interpreting Provider: Bernabe Espinal MD Active Medications Acetaminophen (Tylenol) 650 mg PO Q6HR PRN PRN Reason: Mild Pain (1-3) Stop: 05/14/17 09:33 Albuterol Sulfate (Proventil Neb) 2.5 mg IH Q2H PRN PRN Reason: Shortness Of Breath/Wheezing Stop: 05/14/17 09:41 Aspirin (Aspirin Ec) 81 mg PO DAILY QUIANA Stop: 05/15/17 09:01 Benzonatate (Tessalon) 200 mg PO TID PRN PRN Reason: Cough Stop: 05/14/17 09:41 Dextrose/Water (Dextrose 50% (Syg)) 25 ml IVP AD PRN PRN Reason: Hypoglycemia Stop: 05/14/17 13:32 Docusate Sodium (Colace) 100 mg PO BID PRN PRN Reason: Constipation Stop: 05/14/17 09:33 Furosemide (Lasix) 40 mg PO DAILY QUIANA Stop: 05/15/17 09:01 Glucagon (Glucagen) 1 mg IM ONCE PRN PRN Reason: Hypoglycemia Stop: 05/14/17 13:32 Glucose (Gluctose) 15 gm PO ONCE PRN PRN Reason: Hypoglycemia Stop: 05/14/17 13:32 Glucose (Gluctose) 30 gm PO ONCE PRN PRN Reason: Hypoglycemia Stop: 05/14/17 13:32 Guaifenesin (Mucinex) 600 mg PO BID PRN PRN Reason: Congestion Stop: 05/14/17 09:41 Hydroxyzine Pamoate (Hydroxyzine Pamoate) 25 mg PO Q8H [facility] Stop: 05/14/17 01:16 Last Admin: 11/12/16 08:11 Dose: 25 mg Dextrose (Dextrose 5%) 1,000 mls @ 100 mls/hr IVC .Q10H PRN PRN Reason: HYPOGLYCEMIA Stop: 05/14/17 13:32 Insulin Detemir (Levemir) 30 unit SQ HS [facility] Stop: 05/14/17 21:01 Insulin Human Lispro (Humalog) 0 units SQ HS [facility] PRN Reason: Protocol Stop: 05/14/17 21:01 Insulin Human Lispro (Humalog) 0 units SQ TIDAC [facility] PRN Reason: Protocol Stop: 05/14/17 16:31 Isosorbide Mononitrate (Imdur) 60 mg PO DAILY [facility] Stop: 05/14/17 09:01 Last Admin: 11/12/16 08:11 Dose: 60 mg Metoprolol Tartrate (Lopressor) 75 mg PO BID [facility] Stop: 05/14/17 09:01 Last Admin: 11/12/16 08:11 Dose: 75 mg Morphine Sulfate (Morphine Sulfate) 2 mg IVP Q4HR PRN PRN Reason: Severe Pain (7-10) Stop: 05/14/17 09:33 Naloxone HCl (Narcan) 0.4 mg IVP Q2MIN PRN PRN Reason: Opioid Reversal Stop: 05/14/17 09:33 Omeprazole (Prilosec) 40 mg PO DAILY@0730 [facility] PRN Reason: Protocol Stop: 05/15/17 07:31 Oxycodone HCl (Roxicodone) 5 mg PO Q6HR PRN PRN Reason: Moderate Pain (4-6) Stop: 05/14/17 09:33 Polysaccharide Iron Complex (Ferrex 150) 150 mg PO DAILY [facility] Stop: 05/14/17 09:01 Last Admin: 11/12/16 08:11 Dose: 150 mg Potassium Chloride (Potassium Chloride) 10 meq PO DAILY [facility] Stop: 05/14/17 09:01 Last Admin: 11/12/16 08:11 Dose: 10 meq Promethazine HCl (Phenergan) 12.5 mg IVP Q6HR PRN PRN Reason: Nausea And Vomiting Stop: 05/14/17 09:33 Sertraline HCl (Zoloft) 50 mg PO DAILY [facility]IANA Stop: 05/14/17 09:01 Last Admin: 11/12/16 08:12 Dose: 50 mg Silver Nitrate (Silvasorb) 1 appl TP DAILY [facility]IANA Stop: 05/14/17 12:46 Simvastatin (Zocor) 40 mg PO HS [facility]IANA Stop: 05/14/17 21:01 Spironolactone (Aldactone) 50 mg PO DAILY [facility]IANA Stop: 05/14/17 09:01 Last Admin: 11/12/16 08:11 Dose: 50 mg Vitamin D (Vitamin D) 1,000 unit PO DAILY QUIANA Stop: 05/14/17 09:01 Last Admin: 11/12/16 08:12 Dose: 1,000 unit - Imaging and Cardiology Chest Xray: report reviewed Echo: report reviewed Holter: report reviewed - EKG Interpretation EKG results cardiology: personally reviewed (SR), other (24 hour tele AVG HR 72 , SR, no significant pauses or arrhythmias) Consult Discharge Plan - Plan Referrals: Belem Arroyo, ASSET LIABILITY ANALYST [Primary Care Provider] -
[2016-11-12] MEDS: Insulin LISPRO 300 UNITS/3 ML VIAL SQ SCH ×2 (16:48→21:04)
--- NOTE | 2016-11-12 17:50 | Electrocardiograph Report ---
[address] [place], [place] [address] Test Date: 2016-11-11 Pat Name: Neema Richter Department: 104 Room: 2NE17 Gender: M [employer]unch Press Operator: GISSEL : 1965 Requested By: Eber Mitchell Order Number: [id number] Reading MD: Katheryn Sadler Measurements Intervals [place] Rate: 73 P: 14 [place]: 154 QRS: -20 QRSD: 96 T: 65 QT: 418 QTc: 444 Interpretive Statements SINUS RHYTHM LEFT ATRIAL ENLARGEMENT POSSIBLE RIGHT VENTRICULAR CONDUCTION DELAY INFERIOR MYOCARDIAL INFARCTION, PROBABLY OLD ANTEROLATERAL MYOCARDIAL INFARCTION, OF INDETERMINATE AGE Electronically Signed On 11-12-2016 17:48:47 EDT by Katheryn Sadler
--- NOTE | 2016-11-12 17:58 | Internal Med Progress Note ---
Date of Encounter: 11/12/16 Time of Encounter: 17:56 - Assessment and plan (1) Systolic congestive heart failure Current Visit: Yes Status: Acute Assessment and plan: This is a new onset systolic congestive heart failure: Previous echocardiogram was suggestive of ejection fraction 50% Echocardiogram from today showed EF of 55%. Plan: We will get cardiology for evaluation in terms of possible further management. Qualifiers: Congestive heart failure chronicity: acute Qualified Code(s): I50.21 - Acute systolic (congestive) heart failure (2) CKD (chronic kidney disease), stage III Current Visit: Yes Status: Acute Assessment and plan: Patient is known to have a CKD He is following up with Dr. Carrera Noted that his creatinine is 1.[address] Juliano Green and informed him about this patient's admission. I requested not to see patient but keep in mind that this patient might need a catheterization Patient also needs aggressive diuresis (3) Suicide ideation Current Visit: Yes Status: Acute Assessment and plan: Patient has psychiatric disorder and had suicidal ideation. He was seen by psychiatry. psychiatry input appreciated. (4) Uncontrolled diabetes mellitus Current Visit: No Status: Acute Assessment and plan: Presently on home medication. We will continue to monitor sugar. Qualifiers: Diabetes mellitus type: type 2 Diabetes mellitus complication status: with unspecified complications Diabetes mellitus senior living insulin use: unspecified long term care social worker insulin use status Qualified Code(s): E11.8 - Type 2 diabetes mellitus with unspecified complications; E11.65 - Type 2 diabetes mellitus with hyperglycemia - Subjective Interval history: Seen and examined. Chart reviewed. Patient is complaining of swelling of his legs. Patient also complains of shortness of breath. Patient denies chest pain, dizziness, nausea, vomiting and diarrhea. - Constitutional Vitals: Temp Pulse Resp BP Pulse Ox 98.2 F 74 16 136/87 100 11/12/16 16:11 11/12/16 16:11 11/12/16 16:11 11/12/16 16:11 11/12/16 16:11 General appearance: Present: A&O X 3, no acute distress, answers questions appropriately - Head Head exam: Present: atraumatic, normocephalic - Eye Eye exam: Present: PERRL, conjuntiva pink, sclera anicteric Pupils: Present: PERRL - Neck Neck exam general surgery: Present: supple, trachea midline. Absent: lymphadenopathy - Respiratory Respiratory exam: Present: CTAB. Absent: accessory muscle use, rales, rhonchi, wheezes - Cardiovascular Cardiovascular exam: Present: RRR, +S1, +S2. Absent: diastolic murmur, gallop, rubs, systolic murmur - GI/Abdominal GI/Abdominal exam: Present: normal bowel sounds, soft, no peritoneal signs. Absent: distended, tenderness - Extremities Exam Extremities exam: Present: warm, radial pulses palpable and symetrical. Absent : calf tenderness, cyanotic, pedal edema - Neurological Exam Neurological exam: Present: CN II-XII intact, oriented X3, no focal deficits. Absent: pronater drift, facial droop, speech deficit - Skin Skin exam: Present: dry, intact Internal Medicine: Result - Labs CBC & Chem 7: 11/12/16 10:32 11/12/16 04:50 Labs: Short CBC 11/12/16 11/12/16 Range/Units 04:50 10:32 Hgb 10.2 L 9.9 L (12.9-16.9) g/dL Hct 34.2 L 32.1 L (37.5-50.1) % BMP 11/12/16 04:50 Sodium 142 Potassium 3.7 Chloride 109 Carbon Dioxide 23 BUN 30 H Creatinine 1.84 H Glucose 124 H Calcium 8.5 L Cardiac Enzymes 11/12/16 Range/Units 15:01 Troponin I 0.16 H* (0-0.03) ng/mL Liver Function 11/12/16 Range/Units 04:50 Total Bilirubin 0.6 (0.2-1.2) mg/dL Direct Bilirubin 0.3 (0.0-0.5) mg/dL AST 13 (5-34) Units/L ALT 11 (0-55) Units/L Alkaline Phosphatase 95 (38-126) Units/L Albumin 2.9 L (3.5-5.0) g/dL - ABG Interpretation ABG results: PT/INR, D-dimer PT 12.3 Seconds (9.4-12.1) H 11/11/16 20:27 Consult Discharge Plan - Plan Referrals: Belem Arroyo, JAMMER OPERATOR [Primary Care Provider] -
[2016-11-12 20:42] LABS: Hemoglobin 9.8 g/dL (12.9-16.9)
[2016-11-12] MEDS ORDERED: INSULIN GLARGINE 30 UNIT SQ SCH (21:00)
[2016-11-12] MEDS: Furosemide 40 MG/4 ML VIAL IVP SCH (21:01)
[2016-11-12] MEDS: Insulin DETEMIR 100 UNIT/ML X5UNITS SQ SCH (21:03)
[2016-11-13] MEDS: Silvasorb 44.4 ML TUBE TP SCH ×2 (00:31→09:03)
[2016-11-13] MEDS: hydrOXYzine pamoate 25 MG CAPSULE PO SCH ×3 (00:32→18:11)
[2016-11-13 03:47] LABS: Basophils % 0.6 %; Eosinophils # 0.1 K/mcL (0.0-0.6); Eosinophils % 2.2 %; Hematocrit 31.6 % (37.5-50.1); Hemoglobin 9.7 g/dL (12.9-16.9); Immature Granulocytes % 0.4 % (0-4); Lymphocytes # 0.9 K/mcL (0.6-4.6); Lymphocytes % 19.9 %; Mean Corpuscular HGB Conc 30.7 g/dL (31.6-35.5); Mean Corpuscular Hemoglobin 25.3 pg (28.0-33.3); Mean Corpuscular Volume 82.3 fL (83.0-100.0); Mean Platelet Volume 11.6 fL (9.4-12.4); Monocytes # 0.4 K/mcL (0.0-1.3); Monocytes % 9.1 %; Neutrophils # 3.1 K/mcL (1.6-8.9); Platelet Count 207 K/mcL (140-400); Red Blood Count 3.84 M/mcL (4.19-5.50); Red Cell Distribution Width 15.4 % (11.5-14.5); Segmented Neutrophils % 67.8 %
[2016-11-13 04:02] LABS: Albumin 2.7 g/dL (3.5-5.0); Albumin/Globulin Ratio 0.8 (1.1-2.2); Bilirubin,Total 0.6 mg/dL (0.2-1.2); Calcium 8.7 mg/dL (8.6-10.8); Globulin 3.3 g/dL (2.4-3.5); Potassium 3.6 mEq/L (3.5-4.5)
[2016-11-13 04:05] LABS: Calcium 8.6 mg/dL (8.6-10.8); Chol/HDL Ratio 5.4 (0-4.9); Magnesium 1.7 mg/dL (1.6-2.6); Phosphorous 4.8 mg/dL (2.3-4.7); Potassium 3.5 mEq/L (3.5-4.5)
[2016-11-13] MEDS: *HR* Dextrose 50 % in Water (Syg) 50 ML SYRINGE IVP PRN (07:28)
[2016-11-13] MEDS ORDERED: Furosemide 40 MG TABLET PO SCH (09:00)
[2016-11-13] MEDS: Iron Polysaccharide Complex 150 MG CAPSULE PO SCH (09:02)
[2016-11-13] MEDS: Aspirin Enteric Coated 81 MG Tablet PO SCH (09:02)
[2016-11-13] MEDS: Insulin LISPRO 300 UNITS/3 ML VIAL SQ SCH ×4 (09:02→20:35)
[2016-11-13] MEDS: Isosorbide MONOnitrate (24 HR) 60 MG TAB.ER.24H PO SCH (09:02)
[2016-11-13] MEDS: Metoprolol XL (24 HR) Succ 50 MG TAB.ER.24H PO SCH (09:02)
[2016-11-13] MEDS: Cholecalciferol (D-3) 1,000 UNIT TABLET PO SCH (09:02)
[2016-11-13] MEDS: Furosemide 40 MG/4 ML VIAL IVP SCH (09:04)
--- NOTE | 2016-11-13 09:06 | Event Note ---
Date of Encounter: 11/13/16 Time of Encounter: 09:05 - Cardiology Event Note HGB remains stable. Stool occult blood negative. Creatinine 1.86 today--stable. Pt able to tolerate lying flat. wishes to proceed with [facility] today. R/B/A discussed, including risk of contrast induced nephropathy requiring dialysis. Pt agrees to proceed.
--- NOTE | 2016-11-13 11:00 | Nephrology Consult Note ---
Date of Encounter: 11/13/16 Time of Encounter: 10:56 Assessment and Plan (1) CKD (chronic kidney disease), stage III Current Visit: Yes Status: Acute Mucomyst 600mg BID x 4 doses-already ordered 0.45 sodium chloride with 75meq sodium bicarb at 75ml/hour x one liter UOP 2049-excellent Strict I/Os Avoid nephrotoxins if possible Kidney function currently at baseline (2) Acute CHF Current Visit: Yes Status: Acute per cardiology team Qualifiers: Congestive heart failure type: combined Qualified Code(s): I50.41 - Acute combined systolic (congestive) and diastolic (congestive) heart failure History of Present Illness - Reason for Consult Consult date: 11/13/16 Chronic Kidney Disease - Chief Complaint CHF, CKD stage 3 - History of Present Illness Mr Richter is a 51 year old male with a PMH of CHF, CAD, DM, CVA, HTN, and CKD stage [address] Deandre Sepulveda in the outpatient setting for his kidney disease. Patient was admitted for acute CHF and will be undergoing a heart cath today. Nephrology has been consulted to help manage his CKD during this hospitalization. Past Med Surg Social Fam HX - Past Medical History Medical history: arthritis, CHF, CVA, diabetes, hyperlipidemia, hypertension, renal disease, TIA, other Psychiatric history: anxiety, depression, other - Past Surgical History Surgical History: appendectomy, cholecystectomy, orthopedic, other, other - Social History Smoking Status: Former smoker Smokeless Tobacco Status: No Alcohol use: none, unknown Drug use: none, unknown - Family History Father Living Status: Hx Family Cardiac Disorders: Yes Hx Family Respiratory Disorders: No Hx Family Cancer: No Hx Family GI Disorders: No Hx Family Endocrine Disorder: No Hx Family Neuromuscular Disorders: No Hx Family Neurologic Disorders: No Hx Family HEENT Disorders: No Hx Family Autoimmune Disorders: No Mother Family Member Ethnicity: Non- Twin of Family Member: Yes, Fraternal Living Status: Hx Family Cardiac Disorders: Yes Hx Family Respiratory Disorders: No Hx Family Cancer: No Hx Family GI Disorders: Yes Hx Family Endocrine Disorder: Yes Hx Family Neuromuscular Disorders: Yes Hx Family Neurologic Disorders: No Hx Family HEENT Disorders: No Hx Family Autoimmune Disorders: No Medications and Allergies Aspirin Enteric Coated [Aspirin EC] 81 mg PO DAILY #90 tablet. 08/22/15 [Rx] Sertraline [Zoloft] 50 mg PO DAILY #60 tablet 08/22/15 [Rx] Hydroxyzine HCl 25 mg PO Q8H 02/10/16 [History] Insulin ASPART [NovoLOG] 10 unit SQ PRN PRN 02/11/16 [History] Insulin Glargine [Lantus] 30 units SQ HS 02/11/16 [History] Furosemide [Lasix] 40 mg PO DAILY #30 tablet 02/14/16 [Rx] Metoprolol [Lopressor] 75 mg PO BID #60 tablet 02/14/16 [Rx] Potassium Chloride [Klor-Con 10] 10 meq PO DAILY 06/17/16 [History] Iron Polysaccharide Complex [Ferrex 150] 150 mg PO DAILY 07/09/16 [History] Isosorbide MONOnitrate (24 HR) [Imdur] 60 mg PO DAILY 07/09/16 [History] Atorvastatin [Lipitor] 40 mg PO HS 11/11/16 [History] Cholecalciferol (Vitamin D3) [Vitamin D] 2,000 unit PO DAILY 11/11/16 [History] Spironolactone [Aldactone] 50 mg PO DAILY 11/11/16 [History] Allergies No Known Allergies Allergy (Verified 11/11/16 18:28) Review of Systems All Systems: reviewed and no additional remarkable complaints except as stated Cardiovascular: chest pain, dyspnea, dyspnea on exertion, edema Respiratory: dyspnea, no wheezing Gastrointestinal: no diarrhea, no nausea, no vomiting Neurological: no confusion Psychiatric: no behavioral changes Exam - Vital Signs Vital signs: Initial Vital Signs Temp Pulse Resp BP Pulse Ox 97.6 F 72 16 129/83 98 11/11/16 18:25 11/11/16 18:25 11/11/16 18:25 11/11/16 18:25 11/11/16 18:25 Vital Signs - Last 8 Hours Temp Pulse Resp BP Pulse Ox 11/13/16 08:37 92 11/13/16 07:14 97.8 F 75 16 144/87 92 11/13/16 04:18 97.9 F 96 18 140/92 94 Intake and Output 11/12/16 11/13/16 11/13/16 23:59 07:59 15:59 Output Total 200 / 200 Balance -200 / -200 Output: Urine 200 / 200 Other: Weight 86.4 kg Blood Glucose* 90 66 Patient Weight 11/13/16 23:59 Weight 86.4 kg - General Appearance General appearance: cachectic, frail EENT: ATNC, mucous membranes moist, hearing intact, vision intact Neck: supple Respiratory: clear Cardiology: edema (RLL edema), normal S1, normal S2 Gastrointestinal: no tenderness, no guarding Integumentary: warm and dry Neurologic: alert and oriented x3 Musculoskeletal: deformities (facial ) Psychiatric: mood/affect appropriate, cooperative Results - Lab Results 11/13/16 02:54 11/13/16 02:54 Most recent lab results Calcium 8.6 mg/dL (8.6-10.8) 11/13/16 02:54 Phosphorus 4.8 mg/dL (2.3-4.7) H 11/13/16 02:54 Magnesium 1.7 mg/dL (1.6-2.6) 11/13/16 02:54 Consult Discharge Plan - Plan Referrals: Belem Arroyo, ROOFING MACHINE OPERATOR [Primary Care Provider] -
[2016-11-13] MEDS ORDERED: Sodium Bicarbonate 75 MEQ in 0.45 % Sodium Chloride 1,000 ML IVC SCH (11:15)
--- NOTE | 2016-11-13 13:16 | Internal Med Progress Note ---
Date of Encounter: 11/13/16 Time of Encounter: 13:15 - Assessment and plan (1) Systolic congestive heart failure Current Visit: Yes Status: Acute Assessment and plan: This is a new onset systolic congestive heart failure: Previous echocardiogram was suggestive of ejection fraction 50% Echocardiogram from today showed EF of 55%. Plan: We will get cardiology for evaluation in terms of possible further management. 11/13/2016 Noted that patient is scheduled for cardiac catheter today. Does not new onset of systolic congestive heart failure. There is a regional wall motion abnormality. Plan: Await for cardiac catheter. We will follow recommendations from cardiology. Qualifiers: Congestive heart failure chronicity: acute Qualified Code(s): I50.21 - Acute systolic (congestive) heart failure (2) CKD (chronic kidney disease), stage III Current Visit: Yes Status: Acute Assessment and plan: Patient is known to have a CKD He is following up with Dr. Carrera Noted that his creatinine is 1.[address] Juliano Green and informed him about this patient's admission. I requested not to see patient but keep in mind that this patient might need a catheterization Patient also needs aggressive diuresis 11/13/2016 Since patient is scheduled for cardiac catheterization, we will get nephrology on the board. The reason for consult to nephrology is to assess his kidney status secondary to contrast. (3) Suicide ideation Current Visit: Yes Status: Acute Assessment and plan: Patient has psychiatric disorder and had suicidal ideation. He was seen by psychiatry. psychiatry input appreciated. 11/13/2016 Is feeling much better. (4) Uncontrolled diabetes mellitus Current Visit: No Status: Acute Assessment and plan: Presently on home medication. We will continue to monitor sugar. Qualifiers: Diabetes mellitus type: type 2 Diabetes mellitus complication status: with unspecified complications Diabetes mellitus terminal carman insulin use: unspecified terminal carman insulin use status Qualified Code(s): E11.8 - Type 2 diabetes mellitus with unspecified complications; E11.65 - Type 2 diabetes mellitus with hyperglycemia - Subjective Interval history: Seen and examined. Chart reviewed. Patient is complaining of swelling of his legs. Patient also complains of shortness of breath. Patient denies chest pain, dizziness, nausea, vomiting and diarrhea. 11/13/2016 - Constitutional Vitals: Temp Pulse Resp BP Pulse Ox 97.8 F 75 16 144/87 92 11/13/16 07:14 11/13/16 07:14 11/13/16 07:14 11/13/16 07:14 11/13/16 08:37 General appearance: Present: A&O X 3, no acute distress, answers questions appropriately - Head Head exam: Present: atraumatic, normocephalic - Eye Eye exam: Present: PERRL, conjuntiva pink, sclera anicteric Pupils: Present: PERRL - Neck Neck exam general surgery: Present: supple, trachea midline. Absent: lymphadenopathy - Respiratory Respiratory exam: Present: CTAB. Absent: accessory muscle use, rales, rhonchi, wheezes - Cardiovascular Cardiovascular exam: Present: RRR, +S1, +S2. Absent: diastolic murmur, gallop, rubs, systolic murmur - GI/Abdominal GI/Abdominal exam: Present: normal bowel sounds, soft, no peritoneal signs. Absent: distended, tenderness - Extremities Exam Extremities exam: Present: warm, radial pulses palpable and symetrical. Absent : calf tenderness, cyanotic, pedal edema - Neurological Exam Neurological exam: Present: CN II-XII intact, oriented X3, no focal deficits. Absent: pronater drift, facial droop, speech deficit - Skin Skin exam: Present: dry, intact Internal Medicine: Result - Labs CBC & Chem 7: 11/13/16 02:54 11/13/16 02:54 Labs: Short CBC 11/12/16 11/13/16 Range/Units 20:30 02:54 WBC 4.6 (4.3-11.1) K/mcL Hgb 9.8 L 9.7 L (12.9-16.9) g/dL Hct 32.0 L 31.6 L (37.5-50.1) % Plt Count 207 (140-400) K/mcL Neutrophils # 3.1 (1.6-8.9) K/mcL BMP 11/13/16 11/13/16 02:54 02:54 Sodium 141 142 Potassium 3.5 3.6 Chloride 108 109 Carbon Dioxide 22 25 BUN 30 H 30 H Creatinine 1.85 H 1.86 H Glucose 76 76 Calcium 8.6 8.7 Cardiac Enzymes 11/12/16 11/13/16 11/13/16 Range/Units 20:30 02:54 08:14 Troponin I 0.19 H* 0.18 H* 0.18 H* (0-0.03) ng/mL Liver Function 11/13/16 Range/Units 02:54 Total Bilirubin 0.6 (0.2-1.2) mg/dL AST 11 (5-34) Units/L ALT 9 (0-55) Units/L Alkaline Phosphatase 90 (38-126) Units/L Albumin 2.7 L (3.5-5.0) g/dL - ABG Interpretation ABG results: PT/INR, D-dimer PT 12.3 Seconds (9.4-12.1) H 11/11/16 20:27 Consult Discharge Plan - Plan Referrals: Belem Arroyo, HEALTH SUPPORT SPECIALIST [Primary Care Provider] -
--- NOTE | 2016-11-13 14:11 | Pre-Sedation Evaluation ---
Pre-sedation evaluation - Pre-sedation checklist Date of procedure: 11/13/16 Procedure: [facility] Recent Vitals: Last Vital Signs Temp 97.8 F 11/13/16 07:14 Pulse 75 11/13/16 07:14 Resp 16 11/13/16 07:14 BP 144/87 11/13/16 07:14 Pulse Ox 92 11/13/16 08:37 H&P (including ROS) documented in medical record: Yes Previous reaction to sedatives/anesthetics: No Dietary Status: NPO after Midnight Airway Assessment: Patient can open mouth completely, TMJ function normal, Micrognathia (under-bite, receding chin) absent, Neck with adequate range of motion Dentition: No loose teeth or bridges Possible difficult airway: No ASA Classification *see protocol: CLASS II-Mild systemic disease Plan of Care: Pt appropriate candidate for procedure/moderate/conscious sedation , Risks/benefits of procedure/sedation discussed w/ patient/family
[2016-11-13] MEDS ORDERED: Nitroglycerin 1,000 MCG/10 ML VIAL IV ONE (14:19)
[2016-11-13] MEDS ORDERED: Heparin 1,000 UNITS/500 mL NS 500 ML ONE (14:19)
[2016-11-13] MEDS ORDERED: *HR* Heparin 10,000 UNIT/10 ML VIAL ONE (14:19)
[2016-11-13] MEDS ORDERED: 0.9 % Sodium Chloride 1,000 ML ONE ×2 (14:19→14:36)
[2016-11-13] MEDS ORDERED: *HR* Midazolam HCl 2 MG/2 ML VIAL ONE (14:39)
[2016-11-13] MEDS ORDERED: *HR* FentaNYL (PF) 100 MCG/2 ML VIAL ONE (14:39)
--- NOTE | 2016-11-13 15:28 | Invasive Diagnostic Lab Proc ---
Name: Neema Richter Date of Study: 11/13/2016 Date: 1965 Ht: 70.9in Medical Record#: [id number] Age: 51 Wt: 189.60lb Gender: Male BSA: 2.06 Order #: [id number] BMI: 26.54 Physicians Procedure Physician: Katheryn Sadler MD, [facility] Referring MD: Referring MD: Staff Name Position Time In Alondra Reynolds RT (R) Monitor 02:54 PM Marcela Jillian RT (R) Scrub 02:54 PM Naomi Waters RN Furrier Designer 02:54 PM Indications Indication Non-Stemi Procedures Performed Procedure CORONARY ARTERY ANGIO S\\T\\I Pre-Procedure Checklist Informed consent is complete signed and on chart. H\\T\\P is on chart. ID band is on and ID verified with patient. Patient NPO for procedure The procedure was described for the patient and questions were answered. Blood Pressure: 169/112 ECG is on chart. Plan of Care Patient will tolerate the procedure without complications. Adequate level of comfort will be maintained. Hemodynamics will remain stable Patient will recover from procedure without complications. Respiratory function will be maintained. Cardiac rhythm will remain stable. Patient temperature will be maintained. Patient and/or family have verbalized understanding of the procedure. Patient Education Chief Complaint/Reason for Test: Cardiac Cath Developmental Category: Adult (18-64 years) Developmentally Appropriate for Age: Yes Learning Barriers: None Education Needs: Procedure Education Method: Verbal Information Taught: Cardiac Cath Educational Evaluation: Able to repeat information Intravenous Access Time IV Size Location DC'd Fluid/Drip Rate Units RN 02:49 PM 20g 1 07/21" Patent On Arrival Lt Antecubital 0.9NaCl 25 ml/hr Naomi Waters RN Allergies No Known Allergies Vital Signs Time BP (mmHg) HR (bpm) O2 Sat. RR (bpm) LOC / % 5 = Fully awake and oriented or at pre-proc level 02:55 PM / % 4 = Oriented but drowsy 02:55 PM / % 4 = Oriented but drowsy 02:45 PM 169 / 112 76 92 % 22 02:49 PM 164 / 101 75 98 % 26 02:54 PM 170 / 101 74 97 % 13 02:59 PM 162 / 101 72 99 % 03:04 PM 161 / 102 74 99 % Procedural Medications Time Medication Dose Units Method Given By 02:54 PM Oxygen 2 L/min nasal cannula Naomi Waters RN 02:54 PM Versed 2 mg Intravenous Naomi Waters RN 02:54 PM Fentanyl 50 mcg Intravenous Naomi Waters RN 02:55 PM Lidocaine 2% 15 ml Subcutaneous Katheryn Sadler MD, FAC Harman Score Preprocedure Postprocedure Activity 2- Moves 4 extremities sustained head lift Activity 2- Moves 4 extremities sustained head lift Circulation 2- SBP +/= 20 points of pre-anesthetic level Circulation 2- SBP +/= 20 points of pre-anesthetic level Consciousness 2- Awake and alert oriented x 3 Consciousness 2- Awake and alert oriented x 3 O2 Saturation 2- Able to maintain O2 satruation of 92% on room air O2 Saturation 2- Able to maintain O2 satruation of 92% on room air Respiratory 2- Able to deep breathe and cough well Respiratory 2- Able to deep breathe and cough well Total Score 10 Total Score 10 Contrast Agent: Isovue Diagnostic Contrast: 32 ml Total Contrast: 32 ml Fluoro Dose: 275 mGy Procedure Log Time Note Enter By 02:44 PM CathStat 02:44 PM Vitals capture started with the following parameters, Patient=Adult, Interval=5 min, Initial Kyopcqls=945 mmHg, Deflation Rate=5 mmHg, Cuff placed on Left Arm 02:45 PM HR=76 bpm, JBLM=753/112 mmhg, SpO2=92.0 %, Resp=22 B/min 02:48 PM Recorded ECG: HR=75 Condition=Condition 1 02:49 PM Pt arrived to laborer rags 2 at 14:49 [email or web address] 02:49 PM Physician arrived 14:49 [email or web address] 02:49 PM Meet and benton completed [email or web address] 02:49 PM Sign in performed according to hospital policy. [email or web address] 02:49 PM Procedure start 14:49 [email or web address] 02:49 PM HR=75 bpm, XTLH=522/101 mmhg, SpO2=98.0 %, Resp=26 B/min 02:53 PM Patient charges- Angio tray pack, Navilyst 3mm J, Pulse Oximetry and ACIST tubing and transducer [email or web address] 02:53 PM IV Supplies used: J loop Angio Cath. [email or web address] 02:53 PM Case Delayed no [email or web address] 02:54 PM Rodolfo, Alondra RT (R) Position: Monitor Time in: 14:54 [email or web address] 02:54 PM Jillian Medrano RT (R) Position: Scrub Time in: 14:54 [email or web address] 02:54 PM Naomi Waters RN Position: Furrier Designer Time in: 14:54 [email or web address] 02:54 PM Hair removed from procedure site in procedure lab using clippers. Bilateral groin prepped with Chloraprep by Alondra Reynolds RT (R), safety strap applied then patient was draped. Skin intact. [email or web address] 02:54 PM Time: 14:54 Oxygen on at 2 L/min per nasal cannula by Naomi Waters RN [email or web address] 02:54 PM Time: 14:54 Versed 2 mg Intravenous Given by Naomi Waters RN [email or web address] 02:54 PM HR=74 bpm, MKBF=943/101 mmhg, SpO2=97.0 %, Resp=13 B/min 02:54 PM Time: 14:54 Fentanyl 50 mcg Intravenous Given by Naomi Waters RN [email or web address] 02:54 PM Time: 14:54 Patient comfortable and pain free: Yes [email or web address] 02:55 PM Pressure channel 1 zeroed. 02:55 PM Time: 14:55LOC: 4 = Oriented but drowsy [email or web address] 02:55 PM Time: 14:55 15 ml Lidocaine 2% to right groin Subcutaneous Given by Katheryn Sadler MD, [facility] [email or web address] 02:55 PM Access obtained by percutaneous puncture. 5Fr 10cm Terumo [place] sheath placed in right Femoral artery. [id number] [email or web address] 02:56 PM 5Fr FL 4 catheter inserted over the wire DN [email or web address] 02:56 PM Wire removed, intact. [email or web address] 02:56 PM LCA angiography performed in multiple views. [email or web address] 02:56 PM Recorded Pressure: Ao, HR=75, Condition=Condition 1 (Aorta) Ao 139/103/121 02:57 PM Recorded Pressure: Ao, HR=75, Condition=Condition 1 (Aorta) Ao 142/105/124 02:57 PM Catheter removed [email or web address] 02:58 PM 5Fr FR 4 catheter inserted over the wire DN [email or web address] 02:58 PM Wire removed, intact. [email or web address] 02:59 PM HR=72 bpm, XQTB=789/101 mmhg, SpO2=99.0 % 03:00 PM Wire reinserted tw 03:00 PM Wire and catheter removed, intact. tw 03:02 PM Bolus angiogram of right Femoral complete: 2 ml/sec for a total of 4 mls tw 03:02 PM Cardiothoracic surgeon consulted by physician 03:02 PM Procedure completed at 15:02 tw 03:03 PM Sign out completed: Radiation Dose 275.30 mGy Fluoro Time: 1.5 Isovue 370 - 200ml contrast 32.1 ml given by Katheryn Sadler MD, [facility]. Complications: NoneCardiac Rehab Consult needed: YesConfirmed administered medications: Yes tw 03:04 PM Isovue 370 - 500ml,1 Bottle(s) used. tw 03:04 PM HR=74 bpm, SSLW=956/102 mmhg, SpO2=99.0 % 03:05 PM Arterial sheath pulled, Mynx closure device used and was Successful [id number] S/N. tw 03:06 PM 15:06 Post Pulses Bilateral radial 2+ [email or web address] 03:06 PM 15:06 Post Pulses Bilateral DP \\T\\ PT 1+ [email or web address] 03:07 PM Information taught Cardiac Cath and Mynx twilson 03:10 PM Time: 14:55LOC: 4 = Oriented but drowsy twilson 03:10 PM Time: 14:54 Patient comfortable and pain free: Yes tw 03:10 PM Family placed in consult room. tw 03:11 PM Education needs Procedure, Plan of Care, and Responsibilities of Patient in Care tw 03:11 PM Learning barriers :None [email or web address] 03:11 PM Education Methods Verbal [email or web address] 03:11 PM Education evaluation Able to repeat information tw 03:11 PM Site status No bleeding/hematoma - Rt Groin as reported by Jillian Medrano RT (R) at 15:11 [email or web address] 03:11 PM Opsite applied twilson 03:14 PM Report given to Denise SIDDIQI Pt taken to E Room #17. 15:13 [email or web address] 03:14 PM Coronary Dominance: right twilson 03:15 PM Lesion found in Proximal RCA. Pre Stenosis: 60 Pre SALO Flow: tw 03:15 PM Lesion found in Mid RCA. Pre Stenosis: 30 Pre SALO Flow: twilson 03:15 PM Lesion found in Distal RCA. Pre Stenosis: 40 Pre SALO Flow: twilson 03:15 PM Lesion found in LMCA. Pre Stenosis: 15 Pre SALO Flow: twilson 03:15 PM Lesion found in Proximal LAD. Pre Stenosis: 60 Pre SALO Flow: twilson 03:15 PM Lesion found in Mid LAD. Pre Stenosis: 99 Pre SALO Flow: twilson 03:15 PM Lesion found in Proximal Circumflex. Pre Stenosis: 30 Pre SALO Flow: twilson 03:15 PM Lesion found in Mid Circumflex. Pre Stenosis: 60 Pre SALO Flow: twilson 03:16 PM Lesion found in 1st Marginal. Pre Stenosis: 99 Pre SALO Flow: twilson 03:16 PM Lesion found in 2nd Marginal. Pre Stenosis: 99 Pre SALO Flow: twilson 03:16 PM Lesion found in 3rd Marginal. Pre Stenosis: 99 Pre SALO Flow: twilson 03:16 PM Lesion found in Right PDA. Pre Stenosis: 99 Pre SALO Flow: twilson 03:16 PM Lesion found in Ramus. Pre Stenosis: 99 Pre SALO Flow: twilson 03:16 PM Left Main Coronary Artery with 15% stenosis [email or web address] 03:17 PM Proximal Left Anterior Descending Coronary Artery with 60% stenosis. If graft is supplying this territory, 0 % stenosis. [email or web address] 03:17 PM Mid/Distal Left Anterior Descending Coronary Artery and diagonal branches with 99% stenosis. If graft is supplying this area, 0 % stenosis twilson 03:17 PM Circumflex, Obtuse Marginal, Left Posterior Descending, and Left Posterolateral Coronary Arteries with 99 % stenosis. If graft is supplying this area, 0 % stenosis twilson 03:18 PM Ramus with 99% stenosis. If graft is supplying this area, 0 % stenosis twilson 03:18 PM Right Coronary, Right Posterior Descending Arteries with Right Posterolateral and Acute Marginal branches with 60 % stenosis. If graft is supplying this area, 0 % stenosis [email or web address] 03:18 PM Patient out of room: 15:18 [email or web address] Complications Complication None Hemodynamics Pressures Site Systolic/A Wave Diastolic/V Wave Mean AO 139 103 121 AO 142 105 124 Post Procedure Information Post procedural instructions were given Surgery consult for CABG Closure Device Time Device Success/Fail 11/13/2016 3:03:00 PM MynxGrip Successful Site Checks Time Location Status Staff Sheath In? Note 03:11 PM Rt Groin No bleeding/hematoma Jillian Medrano RT (R) Pulses Time Site Pre-Procedure Post-Procedure Note 11/13/2016 2:49:00 PM Bilateral radial 2+ 11/13/2016 2:49:00 PM Bilateral DP \\T\\ PT 1+ 3:06:00 PM Bilateral radial 2+ 3:06:00 PM Bilateral DP \\T\\ PT 1+ Updated by RT Jennifer(R) on 11/13/2016 3:24:06 PM electronically signed on 11/13/2016 3:24:48 PM with status of Final
--- NOTE | 2016-11-13 15:45 | Invasive Diagnostic Lab ---
Name: Neema Richter Date of Study: 11/13/2016 Date: 1965 Ht: 180.0 cm /70.9 in Medical Record#: [id number] Age: 51 Wt: 86. kg / 189.60 lb Account/Order#: [id number] Gender: Male BSA: 2.06 Order #: [id number] Fluoro Dose: 275 mGy BMI: 26.54 Procedure Physician: Katheryn Sadler MD, FACC Referring MD: Referring MD: Procedures Performed: CORONARY ANGIOGRAPHY Indications: Non-Stemi, cardiomyopathy Impressions: Severe three vessel coronary artery disease. Recommendations: Optimal medical therapy of patient's disease. Aggressive risk factor modification. Evaluate for coronary artery bypass surgery vs. multivessel PCI. History/Risk Factors: TIA CKD SOB Anemia CHF Dyslipidemia Cerebrovascular disease Procedure Access obtained in the right Femoral artery by percutaneous puncture Complications: None Contrast: Isovue 32ml Closure Device: MynxGrip Hemodynamics: Pressures Site Systolic/ A Wave Diastolic/ V Wave End Diastolic/ Mean HR AO 139 103 121 75 AO 142 105 124 75 Coronary Dominance: right Lesion Findings/Interventions * Left Main Coronary Artery There is a 15% stenosis in the LMCA. * Left Anterior Descending There is a 60% stenosis in the Proximal LAD. There is a 99% stenosis in the Mid LAD. * Circumflex There is a 30% stenosis in the Proximal Circumflex. There is a 60% stenosis in the Mid Circumflex. There is a 99% stenosis in the 1st Marginal- very small, diffusely diseased There is a 99% stenosis in the 2nd Marginal- very small, diffusely diseased There is a 99% stenosis in the 3rd Marginal- very small, diffusely diseased * Ramus There is a 99% stenosis in the Mid Ramus. * Right Coronary Artery There is a 60% stenosis in the Proximal RCA. There is a 30% stenosis in the Mid RCA. There is a 40% stenosis in the Distal RCA. There is a 99% stenosis in the Right PDA- diffusely diseased. Updated by Katheryn Sadler MD, FACC on 11/13/2016 3:37:41 PM Katheryn Sadler MD, FACC electronically signed on 11/13/2016 3:39:43 PM with status of Final
--- NOTE | 2016-11-13 21:29 | Cardiothoracic Consult Note ---
Date of Encounter: 11/13/16 Time of Encounter: 21:21 Assessment and Plan (1) CAD (coronary artery disease) Current Visit: Yes Status: Acute The patient is a 51-year-old type II diabetic, hypertensive man with hypercholesterolemia CKD, Type IIIB, and cerebrovascular disease who presents to [facility] with the diagnosis of an acute NSTEMI. A transthoracic echocardiogram revealed an LVEF 35%. Cardiac catheterization revealed severe three-vessel CAD including a 99% mid LAD lesion and a 99% proximal ramus lesion. The LCx and RCA/PDA vessels have diffuse distal disease and are non-bypassable. In addition, the patient also has a diagnosis of myasthenia gravis. The STS risk calculator reveals an operative mortality risk 1.8%, stroke 1.9%, prolonged ventilation 15.3%, deep sternal wound infection 1% , renal failure 8.7%, and reoperation 7.5%. With the patient's CKD Type IIIB, previous CVA/TIA, myasthenia gravis, and generalized deconditioning, he is at increased operative risk. I believe that the patient should be considered for multivessel PCI rather than CABG. The assessment and plan as outlined above was discussed with the patient and/or family members who expressed understanding and agreement. All questions were answered. Qualifiers: Coronary Disease-Associated Artery/Lesion type: [place] artery [place] vs. transplanted heart: [place] heart Associated angina: with stable angina Qualified Code(s): I25.118 - Atherosclerotic heart disease of [place] coronary artery with other forms of angina pectoris - History of Present Illness Consult date: 11/13/16 Requesting physician: Katheryn Sadler Consult reason: CABG evaluation. Chief complaint: Shortness of breath and fatigue. History of present illness: Mr. Richter is a 51 year old type II diabetic, hypertensive man with CKD, stage IIIB who presented to [facility] on November 12, 2016 at the request of his primary care physician. The patient states that he has had progressive shortness of breath, dyspnea on exertion, and fatigue over several weeks, though the patient's daughter states that his been at least since June 2016. Currently, he can walk only 20-30 feet without experiencing profound respiratory distress requiring him to stop his activity. He most rest for several minutes in order to regain his normal breathing status. He has had "throat tightness" which occurs when he lies flat in bed. This is described as a "blockage of air in his windpipe close". He also complains of chest tightness , but denies any substernal chest pain or radiation to his arms, back, or neck. During his evaluation at [facility] the patient was noted to have elevated troponin I levels consistent with an acute NSTEMI. Given his presenting symptoms and his cardiac risk factors, the patient was admitted for further cardiac workup. He underwent a transthoracic echocardiogram which revealed an LVEF 35% with moderate LV has talked dysfunction. Subsequent cardiac catheterization revealed severe 3 vessel CAD. An LV gram was not performed due to his renal insufficiency. In particular, the patient has a 99% mid LAD lesion, an 99% proximal ramus lesion, a 60% mid LCx lesion with diffuse disease in the OM1, OM2, and OM3 branches, and a 60% proximal RCA lesion, and a 99% proximal PDA lesion with diffuse distal disease. I have been asked to evaluate the patient for possible high risk CABG. Past Med Surg Social Fam HX - Past Medical History Medical history: arthritis, cardiomyopathy, CHF, coronary artery disease, CVA, diabetes, hyperlipidemia, hypertension, renal disease (CKD, Type IIIB), TIA, other (Myasthenia gravis.) Psychiatric history: anxiety, depression, other - Past Surgical History Surgical History: appendectomy, cholecystectomy, orthopedic, other (Right ACL repair.), other (Multiple facial reconstructive operations.) - Social History Smoking Status: Former smoker Packs per day: 1ppd X 30 years Smokeless Tobacco Status: No Alcohol use: none Drug use: none Occupational status: unemployed Current living situation: Home - Independent Activity Level: Independent ambulation Recent Out of Country Travel Within the Last 8 Weeks: No Exposure or Possible Exposure to Illness During Travel: No - Family History Father Living Status: Hx Family Cardiac Disorders: Yes Hx Family Respiratory Disorders: No Hx Family Cancer: No Hx Family GI Disorders: No Hx Family Endocrine Disorder: No Hx Family Neuromuscular Disorders: No Hx Family Neurologic Disorders: No Hx Family HEENT Disorders: No Hx Family Autoimmune Disorders: No Mother Family Member Ethnicity: Non- Twin of Family Member: Yes, Fraternal Living Status: Hx Family Cardiac Disorders: Yes Hx Family Respiratory Disorders: No Hx Family Cancer: No Hx Family GI Disorders: Yes Hx Family Endocrine Disorder: Yes Hx Family Neuromuscular Disorders: Yes Hx Family Neurologic Disorders: No Hx Family HEENT Disorders: No Hx Family Autoimmune Disorders: No Medications and Allergies Aspirin Enteric Coated [Aspirin EC] 81 mg PO DAILY #90 tablet. 08/22/15 [Rx] Sertraline [Zoloft] 50 mg PO DAILY #60 tablet 08/22/15 [Rx] Hydroxyzine HCl 25 mg PO Q8H 02/10/16 [History] Insulin ASPART [NovoLOG] 10 unit SQ PRN PRN 02/11/16 [History] Insulin Glargine [Lantus] 30 units SQ HS 02/11/16 [History] Furosemide [Lasix] 40 mg PO DAILY #30 tablet 02/14/16 [Rx] Metoprolol [Lopressor] 75 mg PO BID #60 tablet 02/14/16 [Rx] Potassium Chloride [Klor-Con 10] 10 meq PO DAILY 06/17/16 [History] Iron Polysaccharide Complex [Ferrex 150] 150 mg PO DAILY 07/09/16 [History] Isosorbide MONOnitrate (24 HR) [Imdur] 60 mg PO DAILY 07/09/16 [History] Atorvastatin [Lipitor] 40 mg PO HS 11/11/16 [History] Cholecalciferol (Vitamin D3) [Vitamin D] 2,000 unit PO DAILY 11/11/16 [History] Spironolactone [Aldactone] 50 mg PO DAILY 11/11/16 [History] Allergies No Known Allergies Allergy (Verified 11/11/16 18:28) All Systems Review: A 10-system review of systems was performed and is negative for pertinent findings except as documented above in the HPI. Physical Examination Vital Signs, Last 4 Hours Temp Pulse Resp BP Pulse Ox 11/13/16 19:31 98.3 F 73 20 139/86 94 General: Conversant, No Apparent Distress HEENT: Normocephaly, Trachea midline, Other (Evidence of skin graft to the frontal area above the nose, evidence of previous reconstructive nasal surgery.) Neck: No JVD, Normal carotid pulses Cardiac: Reg Rate and Rhythm, Normal S1 and S2, No Murmur Lungs: Normal Breath Sounds, No Wheeze, Rales, Rhonchi Neuro: Alert and responsive, No focal deficits noted Vascular: Normal capillary refill Abdomen: Soft, Non-tender Skin: No rashes noted on visualized skin Musculoskeletal: No Chest Wall Tenderness Extremities: No Clubbing, No Cyanosis, Other (2-3+ pitting edema bilaterally from the knees to the toes.) Results 11/13/16 02:54 11/13/16 02:54 Lab Results, Last 24 hours 11/13/16 11/13/16 11/13/16 02:54 02:54 02:54 WBC Hgb Hct Plt Count Sodium 141 Potassium 3.5 Chloride 108 Carbon Dioxide 22 BUN 30 H Creatinine 1.85 H Glucose 76 Calcium 8.6 Magnesium 1.7 Total Bilirubin AST ALT Alkaline Phosphatase Troponin I 0.18 H* B-Natriuretic Peptide 2727 H 11/13/16 11/13/16 11/13/16 02:54 02:54 08:14 WBC 4.6 Hgb 9.7 L Hct 31.6 L Plt Count 207 Sodium 142 Potassium 3.6 Chloride 109 Carbon Dioxide 25 BUN 30 H Creatinine 1.86 H Glucose 76 Calcium 8.7 Magnesium Total Bilirubin 0.6 AST 11 ALT 9 Alkaline Phosphatase 90 Troponin I 0.18 H* B-Natriuretic Peptide - Imaging Chest Xray: image reviewed (Increased cardiac size. Bilateral pleural effusions. ) Consult Discharge Plan - Plan Referrals: Belem Arroyo, MEDICAID ANALYST [Primary Care Provider] -
[2016-11-13] MEDS: *HR* Acetylcysteine 20% 600 MG/3 ML ORAL SYRINGE PO SCH (21:53)
[2016-11-13] MEDS: Insulin DETEMIR 100 UNIT/ML X5UNITS SQ SCH (21:53)
[2016-11-14] MEDS: hydrOXYzine pamoate 25 MG CAPSULE PO SCH ×3 (01:48→18:12)
[2016-11-14 05:11] LABS: Basophils % 0.5 %; Eosinophils # 0.1 K/mcL (0.0-0.6); Eosinophils % 1.6 %; Hematocrit 29.5 % (37.5-50.1); Hemoglobin 9.1 g/dL (12.9-16.9); Immature Granulocytes % 0.3 % (0-4); Lymphocytes # 0.8 K/mcL (0.6-4.6); Lymphocytes % 20.7 %; Mean Corpuscular HGB Conc 30.8 g/dL (31.6-35.5); Mean Corpuscular Hemoglobin 25.4 pg (28.0-33.3); Mean Corpuscular Volume 82.4 fL (83.0-100.0); Mean Platelet Volume 11.4 fL (9.4-12.4); Monocytes # 0.4 K/mcL (0.0-1.3); Monocytes % 10.9 %; Neutrophils # 2.6 K/mcL (1.6-8.9); Platelet Count 199 K/mcL (140-400); Red Blood Count 3.58 M/mcL (4.19-5.50); Red Cell Distribution Width 15.3 % (11.5-14.5)
[2016-11-14 05:29] LABS: Albumin 2.4 g/dL (3.5-5.0); Albumin/Globulin Ratio 0.8 (1.1-2.2); Bilirubin,Total 0.5 mg/dL (0.2-1.2); Calcium 8.3 mg/dL (8.6-10.8); Globulin 3.1 g/dL (2.4-3.5); Potassium 3.7 mEq/L (3.5-4.5); Total Protein 5.5 g/dL (6.0-8.3)
[2016-11-14] MEDS: Isosorbide MONOnitrate (24 HR) 60 MG TAB.ER.24H PO SCH (08:21)
[2016-11-14] MEDS: Metoprolol XL (24 HR) Succ 50 MG TAB.ER.24H PO SCH (08:21)
[2016-11-14] MEDS: Cholecalciferol (D-3) 1,000 UNIT TABLET PO SCH (08:22)
[2016-11-14] MEDS: Aspirin Enteric Coated 81 MG Tablet PO SCH (08:22)
[2016-11-14] MEDS: Iron Polysaccharide Complex 150 MG CAPSULE PO SCH (08:22)
[2016-11-14] MEDS: Silvasorb 44.4 ML TUBE TP SCH (08:33)
[2016-11-14] MEDS: Insulin LISPRO 300 UNITS/3 ML VIAL SQ SCH ×4 (08:37→22:30)
--- NOTE | 2016-11-14 09:49 | Event Note ---
Date of Encounter: 11/14/16 Time of Encounter: 09:48 - Cardiology Event Note S/P C yesterday revealed severe three-vessel CAD including a 99% mid LAD lesion and a 99% proximal ramus lesion. The LCx and RCA/PDA vessels have diffuse distal disease and are non-bypassable. Seen and evaluated by CT surgery , who felt patient should be considered for multivessel PCI rather than CABG. Pt is agreeable to multivessel PCI. Renal function is stable s/p [facility] with creatinine 1.84. Plan for PCI today. R/B/A discussed.
[2016-11-14] MEDS: *HR* Acetylcysteine 20% 600 MG/3 ML ORAL SYRINGE PO SCH ×2 (12:15→22:29)
--- NOTE | 2016-11-14 12:40 | Nephrology Progress Note ---
Date of Encounter: 11/14/16 Time of Encounter: 12:38 - Assessment and Plan (1) CKD (chronic kidney disease), stage III Current Visit: Yes Status: Acute Will continue with renal protective measures as the patient will receive additional contrast today. (2) CAD (coronary artery disease) Current Visit: Yes Status: Acute Per primary team and cardiology. Plan for percutaneous angioplasty for CAD. Appreciate cardiothoracic input. Patient anticipates getting intervention today. Qualifiers: Coronary Disease-Associated Artery/Lesion type: [place] artery [place] vs. transplanted heart: [place] heart Associated angina: with stable angina Qualified Code(s): I25.118 - Atherosclerotic heart disease of [place] coronary artery with other forms of angina pectoris (3) Iron deficiency anemia Current Visit: No Status: Chronic Patient on oral iron. Qualifiers: Iron deficiency anemia type: unspecified iron deficiency Qualified Code(s) : D50.9 - Iron deficiency anemia, unspecified Subjective Principal diagnosis: CKD Interval history: Patient seen. No new complaint. He anticipates cardiac cath today. Objective - Vital Signs Vital signs: Vital Signs Temp Pulse Resp BP Pulse Ox 11/14/16 07:31 98 F 68 16 123/73 95 11/14/16 03:00 98.6 F 69 20 130/86 93 11/13/16 19:31 98.3 F 73 20 139/86 94 11/13/16 15:39 97.5 F L 72 16 159/104 94 Intake and Output 11/13/16 11/14/16 11/14/16 23:59 07:59 15:59 Intake Total 0 / 0 Output Total 310 / 310 200 / 200 Balance -310 / -310 -200 / -200 Intake: Oral 0 / 0 Output: Urine 310 / 310 200 / 200 Other: Weight 86.2 kg Blood Glucose* 63 106 79 Patient Weight 11/14/16 23:59 Weight 86.2 kg - General Appearance General appearance: Present: well-developed, well-nourished EENT: Present: ATNC Additional Comments: respirations are unlabored. Cardiology: Present: regular rate Neurologic: Present: alert and oriented x3 Psychiatric: Present: mood/affect appropriate - Lab 11/14/16 04:23 11/14/16 04:23 Most recent lab results Calcium 8.3 mg/dL (8.6-10.8) L 11/14/16 04:23 Phosphorus 4.8 mg/dL (2.3-4.7) H 11/13/16 02:54 Magnesium 1.7 mg/dL (1.6-2.6) 11/13/16 02:54 Consult Discharge Plan - Plan Referrals: Belem Arroyo, LEARNING SUPPORT SERVICES DIRECTOR [Primary Care Provider] -
[2016-11-14] MEDS ORDERED: *HR* Heparin 10,000 UNIT/10 ML VIAL ONE (13:08)
[2016-11-14] MEDS ORDERED: 0.9 % Sodium Chloride 1,000 ML ONE ×2 (13:09→13:58)
[2016-11-14] MEDS ORDERED: Nitroglycerin 1,000 MCG/10 ML VIAL IV ONE (13:09)
[2016-11-14] MEDS ORDERED: Heparin 1,000 UNITS/500 mL NS 500 ML ONE (13:09)
[2016-11-14] MEDS ORDERED: *HR* Midazolam HCl 5 MG/5 ML VIAL IVP ONE (14:11)
[2016-11-14] MEDS ORDERED: *HR* FentaNYL (PF) 100 MCG/2 ML VIAL ONE (14:11)
--- NOTE | 2016-11-14 14:20 | Pre-Sedation Evaluation ---
Pre-sedation evaluation - Pre-sedation checklist Date of procedure: 11/14/16 Procedure: PCI Recent Vitals: Last Vital Signs Temp 98 F 11/14/16 11:00 Pulse 68 11/14/16 11:00 Resp 16 11/14/16 11:00 BP 123/73 11/14/16 11:00 Pulse Ox 95 11/14/16 11:00 H&P (including ROS) documented in medical record: Yes Previous reaction to sedatives/anesthetics: No Dietary Status: NPO after Midnight Airway Assessment: Patient can open mouth completely, TMJ function normal, Micrognathia (under-bite, receding chin) absent, Neck with adequate range of motion Dentition: No loose teeth or bridges Possible difficult airway: No ASA Classification *see protocol: CLASS II-Mild systemic disease Plan of Care: Pt appropriate candidate for procedure/moderate/conscious sedation , Risks/benefits of procedure/sedation discussed w/ patient/family
[2016-11-14] MEDS ORDERED: *HR* Bivalirudin 250 MG VIAL IVC ONE (14:28)
[2016-11-14] MEDS ORDERED: Nitroglycerin 0.4 MG TAB.SUBL SL PRN (15:03)
--- NOTE | 2016-11-14 15:30 | Invasive Diagnostic Lab Proc ---
Name: Neema Richter Date of Study: 11/14/2016 Date: 1965 Ht: 71.0in Medical Record#: [id number] Age: 51 Wt: 189.82lb Gender: Male BSA: 2.06 Order #: [id number] BMI: 26.49 Physicians Procedure Physician: Katheryn Sadler MD, [facility] Referring MD: Referring MD: Staff Name Position Time In Niko Reynolds RT (R) Scrub 01:37 PM Nayely Rowell RT (R) Monitor 01:37 PM Sloan Zimmerman RN Field Marketing Manager 01:37 PM Indications Indication Non-Stemi Coronary Artery Disease, Staged PCI Procedures Performed Procedure PRQ CARD ELIANA STENT W/ANGIO 1 VSL Pre-Procedure Checklist Informed consent is complete signed and on chart. H\\T\\P is on chart. ID band is on and ID verified with patient. Patient NPO for procedure The procedure was described for the patient and questions were answered. Blood Pressure: 123/73 ECG is on chart. Plan of Care Patient will tolerate the procedure without complications. Adequate level of comfort will be maintained. Hemodynamics will remain stable Patient will recover from procedure without complications. Respiratory function will be maintained. Cardiac rhythm will remain stable. Patient temperature will be maintained. Patient and/or family have verbalized understanding of the procedure. Patient Education Chief Complaint/Reason for Test: Cardiac Cath Developmental Category: Geriatric (65+ years) Developmentally Appropriate for Age: Yes Learning Barriers: None Education Needs: Procedure Education Method: Verbal Information Taught: Cardiac Cath Educational Evaluation: Able to repeat information Intravenous Access Time IV Size Location DC'd Fluid/Drip Rate Units RN 01:59 PM 20g 1 1/" Patent On Arrival Lt Arm 0.9NaCl 25 ml/hr Sloan Zimmerman RN Allergies No Known Allergies Vital Signs Time BP (mmHg) HR (bpm) O2 Sat. RR (bpm) LOC 123 / 73 68 95 % 16 01:51 PM / % 4 = Oriented but drowsy 01:51 PM / % 5 = Fully awake and oriented or at pre-proc level 02:11 PM / % 4 = Oriented but drowsy 02:26 PM / % 4 = Oriented but drowsy 02:15 PM 167 / 98 72 96 % 17 02:19 PM 167 / 98 72 98 % 21 02:24 PM 159 / 104 72 95 % 31 02:29 PM 158 / 100 72 94 % 36 02:34 PM 150 / 101 72 96 % 32 02:39 PM 161 / 96 71 95 % 57 02:44 PM 151 / 93 71 91 % 30 02:49 PM 148 / 97 70 90 % 29 02:54 PM 148 / 84 70 94 % 30 02:59 PM 150 / 85 70 90 % 31 Procedural Medications Time Medication Dose Units Method Given By 02:12 PM Oxygen 2 L/min nasal cannula Sloan Zimmerman RN 02:12 PM Versed 2 mg Intravenous Everardothorne, Sloan RN 02:12 PM Fentanyl 50 mcg Intravenous [place], Sloan RN 02:24 PM Benadryl 25 mg Intravenous [place], Sloan RN 02:25 PM Lidocaine 2% 14 ml Subcutaneous Katheryn Sadler MD, [facility] 02:29 PM Angiomax 0.75mg/kg bolus: 14 ml Intravenous EverardothorneSloan RN 02:30 PM Angiomax 1.75mg/kg/hr: 33 ml Intravenous CarlyornSloan marin RN 02:39 PM Nitroglycerin 200 mcg Intracoronary Katheryn Sadler MD, FAC 02:51 PM Nitroglycerin 200 mcg Intracoronary Katheryn Sadler MD, FAC 02:55 PM Nitroglycerin 200 mcg Intracoronary Katheryn Sadler MD, [facility] ASA Classification: CLASS II- Mild systemic disease (i.e. well-controlled diabetes, hypertension, asthma, cigarette smoking) Harman Score Preprocedure Postprocedure Activity 2- Moves 4 extremities sustained head lift Activity 2- Moves 4 extremities sustained head lift Circulation 2- SBP +/= 20 points of pre-anesthetic level Circulation 2- SBP +/= 20 points of pre-anesthetic level Consciousness 2- Awake and alert oriented x 3 Consciousness 2- Awake and alert oriented x 3 O2 Saturation 2- Able to maintain O2 satruation of 92% on room air O2 Saturation 2- Able to maintain O2 satruation of 92% on room air Respiratory 2- Able to deep breathe and cough well Respiratory 2- Able to deep breathe and cough well Total Score 10 Total Score 10 Contrast Agent: Isovue Diagnostic Contrast: 89 ml Total Contrast: 89 ml Fluoro Dose: 590 mGy Procedure Log Time Note Enter By 01:37 PM Niko Reynolds RT (R) Position: Scrub Time in: 13:37 dsp 01:37 PM Nayely Rowell RT (R) Position: Monitor Time in: 13:37 janice 01:37 PM Sloan Zimmerman RN Position: Field Marketing Manager Time in: 13:37 dsp 01:37 PM Patient charges- Angio tray pack, Navilyst 3mm J, Pulse Oximetry and ACIST tubing and transducer ell 01:37 PM IV Supplies used: J loop Angio Cath. 01:51 PM Pt arrived to labor arbitrator 1 at 13:51 dsp:51 PM Time: 13:51 Patient comfortable and pain free: No 4/10 chest pain dsp 01:51 PM Time: 13:51LOC: 4 = Oriented but drowsy dsp 01:52 PM Case Delayed No 01:53 PM CathStat 02:10 PM Physician arrived 14:10 02:11 PM Time: 13:51LOC: 5 = Fully awake and oriented or at pre-proc level 02:11 PM Time: 13:51 Patient comfortable and pain free: No 02:11 PM Meet and greet completed 02:11 PM Sign in performed according to hospital policy. 02:11 PM Procedure start 14:11 dsp 02:11 PM Case Start 02:12 PM Time: 14:12 Oxygen on at 2 L/min per nasal cannula by Sloan Zimmerman RN ashu 02:12 PM Time: 14:12 Versed 2 mg Intravenous Given by Sloan Zimmerman RN 02:12 PM Time: 14:12 Fentanyl 50 mcg Intravenous Given by Sloan Zimmerman RN 02:13 PM Clinical Presentation: Non-STEMI 02:14 PM Vitals capture started with the following parameters, Patient=Adult, Interval=5 min, Initial Rhxeiklw=053 mmHg, Deflation Rate=5 mmHg, Cuff placed on Left Leg 02:14 PM Pressure channel 1 zeroed. 02:15 PM HR=72 bpm, BHYR=071/98 mmhg, SpO2=96.0 %, Resp=17 B/min, Comment=NSR 02:19 PM HR=72 bpm, EWAB=220/98 mmhg, SpO2=98.0 %, Resp=21 B/min, Comment=NSR 02:24 PM HR=72 bpm, CAOD=489/104 mmhg, SpO2=95.0 %, Resp=31 B/min, Comment=NSR 02:24 PM Time: 14:24 Benadryl 25 mg Intravenous Given by Sloan Zimmerman RN [email or web address] 02:25 PM Time out performed according to hospital policy dspell 02: PM Time: 14:25 14 ml Lidocaine 2% to right groin Subcutaneous Given by Katheryn Sadler MD, [facility] dspell: PM Access obtained by percutaneous puncture. 6Fr 10cm Terumo Simpson sheath placed in right Femoral artery. [id number] dspell: PM Time: 14:11 Patient comfortable and pain free: Yes dspell: PM Time: 14:11LOC: 4 = Oriented but drowsy dspell:27 PM PCI Status Urgent dspell:27 PM PCI Indication: Staged PCI dspellman 02: PM PCI lesion in Mid LAD. Pre Stenosis: 99 Pre SALO Flow: dspell: PM PCI lesion in Mid LAD. dsp: PM Pressure channel 1 zeroed. 02:29 PM HR=72 bpm, BGAG=659/100 mmhg, SpO2=94.0 %, Resp=36 B/min, Comment=NSR 02:30 PM Time: 14:29 Angiomax 0.75mg/kg bolus: 14 ml Intravenous Given by Sloan Zimmerman RN Ayon pump dspell 02:30 PM Time: 14:30 Angiomax 1.75mg/kg/hr: 33 ml Intravenous Given by Sloan Zimmerman RN Ayon pump dspell 02:30 PM 6Fr XB LAD 3.5 Cordis guide catheter was used to cannulate the PCI vessel successfully. reused? No dspellman 02:30 PM .014 Prowater 182cm guide wire across target lesion- successful. reused? No dspell 02:32 PM Recorded Pressure: Ao, HR=72, Condition=Condition 1 (Aorta) Ao 130/89/109 02:32 PM Inflation device was opened. dspellman 02:32 PM 2.0 mm x 15 mm Emerge Monorail balloon across target lesion- successful. reused? No dspell 02:34 PM Balloon inflated @ 10 shell for 22 seconds dspellman 02:34 PM Recorded Pressure: Ao, HR=72, Condition=Condition 1 (Aorta) Ao 129/89/108 02:34 PM Balloon inflated @ 10 shell for 20 seconds dspellman 02:34 PM HR=72 bpm, EJUS=056/101 mmhg, SpO2=96.0 %, Resp=32 B/min, Comment=NSR 02:36 PM Balloon catheter removed intact. dspellman 02:37 PM 3.0mm x 24mm Synergy drug-eluting stent across target lesion- successful Lot #[id number] dspellman 02:37 PM Stent deployed @ 12 shell for 30 seconds dspellman 02:38 PM Stent balloon reinflated @ 16 shell for 10 seconds dspellman 02:39 PM Stent delivery system removed intact. dspell 02:39 PM Time: 14:39 Nitroglycerin 200 mcg Intracoronary Given by Katheryn Sadler MD, [facility] dspellman 02:39 PM HR=71 bpm, WIDC=268/96 mmhg, SpO2=95.0 %, Resp=57 B/min, Comment=NSR 02:39 PM Recorded Pressure: Ao, HR=71, Condition=Condition 1 (Aorta) Ao 143/90/112 02:41 PM Time: 14:26 Patient comfortable and pain free: Yes dspell 02:41 PM Time: 14:26LOC: 4 = Oriented but drowsy dspellman 02:44 PM HR=71 bpm, ASRB=468/93 mmhg, SpO2=91.0 %, Resp=30 B/min, Comment=NSR 02:46 PM PCI lesion in Proximal LAD. Pre Stenosis: 60 Pre SALO Flow: 3: Complete and Brisk Flow/Perfusion dspellman 02:46 PM PCI lesion in Proximal LAD. dspellman 02:47 PM 3.5mm x 16mm Synergy drug-eluting stent across target lesion- successful Lot #[id number] dspellman 02:49 PM HR=70 bpm, VEWJ=800/97 mmhg, SpO2=90.0 %, Resp=29 B/min, Comment=NSR 02:50 PM Stent deployed @ 12 shell for 30 seconds dspellman 02:51 PM Stent delivery system removed intact. dspellman 02:51 PM Recorded Pressure: Ao, HR=71, Condition=Condition 1 (Aorta) Ao 130/85/105 02:51 PM Time: 14:51 Nitroglycerin 200 mcg Intracoronary Given by Katheryn Sadler MD, [facility] dspell 02:54 PM 3.5 mm x 12mm NC Emerge balloon across target lesion- successful. reused? No dspell 02:54 PM Balloon inflated @ 16 shell for 17 seconds dspell 02:54 PM HR=70 bpm, OXVO=315/84 mmhg, SpO2=94.0 %, Resp=30 B/min, Comment=NSR 02:55 PM Balloon inflated @ 16 shell for 11 seconds dspell 02:55 PM Balloon catheter removed intact. dspell 02:56 PM Time: 14:55 Nitroglycerin 200 mcg Intracoronary Given by Katheryn Sadler MD, [facility] dspell 02:56 PM Guide wire removed intact. dspell 02:57 PM Guide catheter removed intact. ell 02:57 PM Procedure completed at 14:57 dspell 02:59 PM HR=70 bpm, WQAX=805/85 mmhg, SpO2=90.0 %, Resp=31 B/min 03:05 PM Sign out completed: Radiation Dose 590.10 mGy Fluoro Time: 5.8 Isovue 370 - 200ml contrast 89 ml given by Katheryn Sadler MD, [facility]. Complications: NoneCardiac Rehab Consult needed: YesConfirmed administered medications: Yes 03:06 PM Sheath left in place to be pulled on floor/holding areaV+Pad dspell 03:07 PM Family placed in consult room. dspell 03:07 PM Patient out of room: 15:07 dspell 03:08 PM Complications: None dspell 03:08 PM Post ECG NSR dspell 03:08 PM Post Blood Pressure 150/85 dspell 03:10 PM 15:08 Post Pulses Bilateral DP \\T\\ PT 1+ dspell 03:11 PM Information taught PCI dspell 03:11 PM Education needs Procedure, Plan of Care, and Responsibilities of Patient in Care dspell 03:11 PM Learning barriers :None dspell 03:11 PM Education Methods Verbal dspell 03:11 PM Education evaluation Able to repeat information dspell 03:11 PM Site status No bleeding/hematoma - Rt Groin as reported by Niko Reynolds RT (R) at 15:11 dspellman 03:11 PM Opsite applied dspellman 03:11 PM Report given to Eboni SIDDIQI Pt taken to Room #9. 15:11 dspellman 03:11 PM Delay to floor No dspellman 03:12 PM Fluoro Time: 5.8 dspellman 03:12 PM Isovue 370 - 200ml contrast 89 ml given by Katheryn Sadler MD, [facility]. dspellman 03:12 PM Radiation Dose 590.10 mGy dspellman Complications Complication None None Hemodynamics Pressures Site Systolic/A Wave Diastolic/V Wave Mean AO 130 89 109 AO 129 89 108 AO 143 90 112 AO 130 85 105 Post Procedure Information Blood Pressure: 150/85 mmHg Rhythm: NSR Post procedural instructions were given Closure Device Time Device Success/Fail 11/14/2016 3:12:00 PM Site Checks Time Location Status Staff Sheath In? Note 03:11 PM Rt Groin No bleeding/hematoma Niko Reynolds RT (R) Pulses Time Site Pre-Procedure Post-Procedure Note Bilateral DP \\T\\ PT 1+ Bilateral radial 2+ 3:08:00 PM Bilateral DP \\T\\ PT 1+ Updated by Nayely Rowell RT (R) on 11/14/2016 3:24:47 PM Nayely Rowell RT electronically signed on 11/14/2016 3:25:38 PM with status of Final
--- NOTE | 2016-11-14 16:13 | Internal Med Progress Note ---
Date of Encounter: 11/14/16 Time of Encounter: 16:13 - Assessment and plan (1) Systolic congestive heart failure Current Visit: Yes Status: Acute Assessment and plan: This is a new onset systolic congestive heart failure: Previous echocardiogram was suggestive of ejection fraction 50% Echocardiogram from today showed EF of 55%. Plan: We will get cardiology for evaluation in terms of possible further management. 11/13/2016 Noted that patient is scheduled for cardiac catheter today. Does not new onset of systolic congestive heart failure. There is a regional wall motion abnormality. Plan: Await for cardiac catheter. We will follow recommendations from cardiology. 11/14/2016 Patient underwent cardiac catheterization. Patient denies any chest pain, shortness of breath, nausea, vomiting Cardiology on the board. We will follow the recommendations. Qualifiers: Congestive heart failure chronicity: acute Qualified Code(s): I50.21 - Acute systolic (congestive) heart failure (2) CKD (chronic kidney disease), stage III Current Visit: Yes Status: Acute Assessment and plan: Patient is known to have a CKD He is following up with Dr. Carrera Noted that his creatinine is 1.[address] Juliano Green and informed him about this patient's admission. I requested not to see patient but keep in mind that this patient might need a catheterization Patient also needs aggressive diuresis 11/13/2016 Since patient is scheduled for cardiac catheterization, we will get nephrology on the board. The reason for consult to nephrology is to assess his kidney status secondary to contrast. (3) Suicide ideation Current Visit: Yes Status: Acute Assessment and plan: Patient has psychiatric disorder and had suicidal ideation. He was seen by psychiatry. psychiatry input appreciated. 11/13/2016 Is feeling much better. (4) Uncontrolled diabetes mellitus Current Visit: No Status: Acute Assessment and plan: Presently on home medication. We will continue to monitor sugar. Qualifiers: Diabetes mellitus type: type 2 Diabetes mellitus complication status: with unspecified complications Diabetes mellitus long-term insulin use: unspecified intermodal truck driver insulin use status Qualified Code(s): E11.8 - Type 2 diabetes mellitus with unspecified complications; E11.65 - Type 2 diabetes mellitus with hyperglycemia - Subjective Interval history: Seen and examined. Chart reviewed. Patient is complaining of swelling of his legs. Patient also complains of shortness of breath. Patient denies chest pain, dizziness, nausea, vomiting and diarrhea. 11/14/2016 Patient seen and examined. Chart reviewed. Patient went for a cardiac catheter and status post PCI. Patient denies chest pain, shortness of breath, vomiting and diarrhea. - Constitutional Vitals: Temp Pulse Resp BP Pulse Ox 97.3 F L 73 18 153/105 93 11/14/16 15:37 11/14/16 15:54 11/14/16 15:37 11/14/16 15:54 11/14/16 15:37 General appearance: Present: A&O X 3, no acute distress, answers questions appropriately - Head Head exam: Present: atraumatic, normocephalic - Eye Eye exam: Present: PERRL, conjuntiva pink, sclera anicteric Pupils: Present: PERRL - Neck Neck exam general surgery: Present: supple, trachea midline. Absent: lymphadenopathy - Respiratory Respiratory exam: Present: CTAB. Absent: accessory muscle use, rales, rhonchi, wheezes - Cardiovascular Cardiovascular exam: Present: RRR, +S1, +S2. Absent: diastolic murmur, gallop, rubs, systolic murmur - GI/Abdominal GI/Abdominal exam: Present: normal bowel sounds, soft, no peritoneal signs. Absent: distended, tenderness - Extremities Exam Extremities exam: Present: warm, radial pulses palpable and symetrical. Absent : calf tenderness, cyanotic, pedal edema - Neurological Exam Neurological exam: Present: CN II-XII intact, oriented X3, no focal deficits. Absent: pronater drift, facial droop, speech deficit - Skin Skin exam: Present: dry, intact Internal Medicine: Result - Labs CBC & Chem 7: 11/14/16 04:23 11/14/16 04:23 Labs: Short CBC 11/14/16 Range/Units 04:23 WBC 3.9 L (4.3-11.1) K/mcL Hgb 9.1 L (12.9-16.9) g/dL Hct 29.5 L (37.5-50.1) % Plt Count 199 (140-400) K/mcL Neutrophils # 2.6 (1.6-8.9) K/mcL BMP 11/14/16 04:23 Sodium 144 Potassium 3.7 Chloride 111 H Carbon Dioxide 26 BUN 29 H Creatinine 1.84 H Glucose 109 H Calcium 8.3 L Liver Function 11/14/16 Range/Units 04:23 Total Bilirubin 0.5 (0.2-1.2) mg/dL AST 10 (5-34) Units/L ALT 10 (0-55) Units/L Alkaline Phosphatase 80 (38-126) Units/L Albumin 2.4 L (3.5-5.0) g/dL - ABG Interpretation ABG results: PT/INR, D-dimer PT 12.3 Seconds (9.4-12.1) H 11/11/16 20:27 Consult Discharge Plan - Plan Referrals: Belem Arroyo, CAMPGROUND CARETAKER [Primary Care Provider] -
[2016-11-14] MEDS: *HR* Dextrose 50 % in Water (Syg) 50 ML SYRINGE IVP PRN (16:30)
--- NOTE | 2016-11-14 17:22 | Invasive Diagnostic Lab ---
Name: Neema Richter Date of Study: 11/14/2016 Date: 1965 Ht: 180.3 cm /71.0 in Medical Record#: [id number] Age: 51 Wt: 86.1 kg / 189.82 lb Account/Order#: [id number] Gender: Male BSA: 2.06 Order #: [id number] Fluoro Dose: 590 mGy BMI: 26.49 Procedure Physician: Katheryn Sadler MD, [facility] Referring MD: Referring MD: Procedures Performed: Stent w/ PTCA Single Major Vessel Indications: Non-Stemi, Coronary Artery Disease, Staged PCI Impressions: Patient had successful PTCA/Drug-Eluting Stent placement in the proximal LAD. Patient had successful PTCA/Drug-Eluting Stent placement in the mid LAD. Recommendations: Dual antiplatelet therapy. Optimal medical therapy of patient's disease. Aggressive risk factor modification. History/Risk Factors: arthritis cardiomyopathy CAD renal dx TIA Diabetes Hypertension Dyslipidemia CHF Cerebrovascular disease Procedure Access obtained in the right Femoral artery by percutaneous puncture Patient had successful PTCA/Drug-Eluting Stent placement in the proximal LAD. Patient had successful PTCA/Drug-Eluting Stent placement in the mid LAD. Complications: None, None Contrast: Isovue 89ml Hemodynamics: Pressures Site Systolic/ A Wave Diastolic/ V Wave End Diastolic/ Mean HR AO 130 89 109 72 AO 129 89 108 72 AO 143 90 112 71 AO 130 85 105 71 Lesion Findings/Interventions * Left Anterior Descending There is a 16 mm long, 60% stenosis in the Proximal LAD. The lesion has a SALO flow of 3. An intervention was performed on the Proximal LAD with a final stenosis of 0%. There were no lesion complications. The final SALO flow was 3. There is a 24 mm long, 99% stenosis in the Mid LAD. The lesion has a SALO flow of 2. An intervention was performed on the Mid LAD with a final stenosis of 0%. There were no lesion complications. The final SALO flow was 3. Interventional Device(s) Vessel Segment Type Name Diameter (mm) Length (mm) Mid LAD Balloon Emerge Monorail 2 15 Mid LAD Drug Eluting Stent Synergy 3 24 Proximal LAD Balloon Synergy 3.5 16 Proximal LAD Drug Eluting Stent NC Emerge 3.5 12 Updated by Katheryn aSdler MD, [facility] on 11/14/2016 5:15:55 PM Katheryn Sadler MD, FACC electronically signed on 11/14/2016 5:17:41 PM with status of Final
[2016-11-14] MEDS ORDERED: *HR* Atropine Sulfate 1 MG/ML VIAL ONE (17:32)
[2016-11-14] MEDS: Sodium Bicarbonate 75 MEQ in 0.45 % Sodium Chloride 1,000 ML IVC SCH (18:09)
[2016-11-14] MEDS: Insulin DETEMIR 100 UNIT/ML X5UNITS SQ SCH (22:30)
[2016-11-15] MEDS: hydrOXYzine pamoate 25 MG CAPSULE PO SCH ×3 (03:55→17:25)
[2016-11-15 04:04] LABS: Basophils % 0.7 %; Eosinophils # 0.1 K/mcL (0.0-0.6); Eosinophils % 0.9 %; Hematocrit 32.1 % (37.5-50.1); Hemoglobin 9.8 g/dL (12.9-16.9); Immature Granulocytes % 0.4 % (0-4); Lymphocytes # 0.9 K/mcL (0.6-4.6); Lymphocytes % 15.9 %; Mean Corpuscular HGB Conc 30.5 g/dL (31.6-35.5); Mean Corpuscular Hemoglobin 25.5 pg (28.0-33.3); Mean Corpuscular Volume 83.4 fL (83.0-100.0); Mean Platelet Volume 11.3 fL (9.4-12.4); Monocytes # 0.5 K/mcL (0.0-1.3); Monocytes % 8.2 %; Neutrophils # 4.1 K/mcL (1.6-8.9); Platelet Count 216 K/mcL (140-400); Red Blood Count 3.85 M/mcL (4.19-5.50); Red Cell Distribution Width 15.6 % (11.5-14.5); Segmented Neutrophils % 73.9 %
[2016-11-15 04:11] LABS: Albumin 2.7 g/dL (3.5-5.0); Albumin/Globulin Ratio 0.8 (1.1-2.2); Calcium 8.5 mg/dL (8.6-10.8); Globulin 3.2 g/dL (2.4-3.5); Potassium 3.7 mEq/L (3.5-4.5); Total Protein 5.9 g/dL (6.0-8.3)
[2016-11-15 04:14] LABS: Bilirubin,Total 0.9 mg/dL (0.2-1.2)
[2016-11-15] MEDS: Isosorbide MONOnitrate (24 HR) 60 MG TAB.ER.24H PO SCH (08:07)
[2016-11-15] MEDS: Metoprolol XL (24 HR) Succ 50 MG TAB.ER.24H PO SCH (08:07)
[2016-11-15] MEDS: Iron Polysaccharide Complex 150 MG CAPSULE PO SCH (08:07)
[2016-11-15] MEDS: Cholecalciferol (D-3) 1,000 UNIT TABLET PO SCH (08:07)
[2016-11-15] MEDS: Aspirin Enteric Coated 81 MG Tablet PO SCH (08:07)
[2016-11-15] MEDS: Insulin LISPRO 300 UNITS/3 ML VIAL SQ SCH ×3 (08:16→17:28)
[2016-11-15] MEDS: *HR* Acetylcysteine 20% 600 MG/3 ML ORAL SYRINGE PO SCH ×2 (08:17→22:16)
[2016-11-15] MEDS ORDERED: Sodium Bicarbonate 75 MEQ in 0.45 % Sodium Chloride 1,000 ML IVC SCH (09:30)
--- NOTE | 2016-11-15 10:39 | Nephrology Progress Note ---
Date of Encounter: 11/15/16 Time of Encounter: 10:30 - Assessment and Plan (1) CKD (chronic kidney disease), stage III Current Visit: Yes Status: Acute Creatinine improved from 1.8 on admission to 1.64 today. Continued renal protective measures as patient received contrast yesterday for heart cath. Concern for BLE edema, would like to see kidney function remain stable today, consider diuresis tomorrow. (2) CAD (coronary artery disease) Current Visit: Yes Status: Acute Per primary and cardiology teams. Patient s/p LHC with stenting yesterday. Qualifiers: Coronary Disease-Associated Artery/Lesion type: false pass artery [place] vs. transplanted heart: false pass heart Associated angina: with stable angina Qualified Code(s): I25.118 - Atherosclerotic heart disease of [place] coronary artery with other forms of angina pectoris (3) CHF (congestive heart failure) Current Visit: Yes Status: Acute Per primary and cardiology teams. Qualifiers: Congestive heart failure type: diastolic Congestive heart failure chronicity: unspecified congestive heart failure chronicity Qualified Code(s) : I50.30 - Unspecified diastolic (congestive) heart failure (4) Iron deficiency anemia Current Visit: No Status: Chronic Patient on oral iron supplementation. Qualifiers: Iron deficiency anemia type: unspecified iron deficiency Qualified Code(s) : D50.9 - Iron deficiency anemia, unspecified Subjective Principal diagnosis: CKD Interval history: Patient seen and examined at bedside. No new complaints. Patient underwent LHC yesterday with stent placement. Objective - Vital Signs Vital signs: Vital Signs Temp Pulse Pulse Resp BP Pulse Ox 11/15/16 08:28 97.9 F 75 16 152/105 95 11/15/16 03:08 98.0 F 73 22 136/90 95 11/14/16 20:16 97.3 F L 67 22 140/88 97 11/14/16 19:30 69 11/14/16 19:15 97.7 F 69 20 136/86 97 11/14/16 18:45 70 135/99 11/14/16 18:30 72 133/101 11/14/16 18:20 71 138/96 11/14/16 18:00 71 148/93 11/14/16 17:55 71 135/102 11/14/16 17:50 71 140/96 11/14/16 17:45 72 143/98 11/14/16 17:42 72 73 148/99 95 11/14/16 17:25 73 73 150/99 11/14/16 17:10 72 72 148/97 11/14/16 16:55 74 74 141/96 11/14/16 16:40 74 74 153/89 11/14/16 16:25 74 74 137/101 11/14/16 16:10 73 73 151/109 11/14/16 15:54 73 73 153/105 11/14/16 15:40 72 72 151/94 11/14/16 15:37 97.3 F L 71 18 93 11/14/16 15:30 98.1 F 49 16 125/60 95 11/14/16 15:23 71 71 144/102 95 11/14/16 11:00 98 F 68 16 123/73 95 Intake and Output 11/14/16 11/15/16 11/15/16 23:59 07:59 15:59 Intake Total 250 / 250 Output Total 210 / 210 300 / 300 Balance -210 / -210 -50 / -50 Intake: Oral 250 / 250 Output: Urine 300 / 300 Catheter 210 / 210 Other: Meal Breakfast Percent of Meal Consumed 100% Stool Size Small Stool Consistency soft formed Stool Color Brown Weight 82.1 kg Blood Glucose* 154 102 Patient Weight 11/15/16 23:59 Weight 82.1 kg - General Appearance General appearance: Present: well-developed, well-nourished, appears started age EENT: Present: ATNC, mucous membranes moist, hearing intact, vision intact Neck: Present: supple Respiratory: Present: clear Cardiology: Present: edema (2+ BLE edema), regular rate, regular rhythm Integumentary: Present: no rash, warm and dry Neurologic: Present: no focal deficit, alert and oriented x3 Musculoskeletal: Present: no deformities, no erythema, no cyanosis Psychiatric: Present: mood/affect appropriate, cooperative - Lab 11/15/16 03:16 11/15/16 03:16 Most recent lab results Calcium 8.5 mg/dL (8.6-10.8) L 11/15/16 03:16 Phosphorus 4.8 mg/dL (2.3-4.7) H 11/13/16 02:54 Magnesium 1.7 mg/dL (1.6-2.6) 11/13/16 02:54 Consult Discharge Plan - Plan Referrals: Belem Arroyo, TABLET MAKING MACHINE OPERATOR [Primary Care Provider] -
--- NOTE | 2016-11-15 11:05 | Cardiology Progress Note ---
Date of Encounter: 11/15/16 Time of Encounter: 09:30 Assessment and Plan (1) Acute CHF Current Visit: Yes Status: Acute Acute systolic and diastolic CHF exacerbation. EF previously 50% in 2016, now 35% with moderate diastolic dysfunction. Worsening dyspnea and lower extremity edema. BNP 2773. CXR with pleural effusions. CKD stage III; SCr stable. LHC: s/p PCI to proximal and mid LAD. Appears volume overload today upon exam, orthopnea with +2-3 BLE edema. Recommend resuming IV diuresis, will start Lasix 40 mg IV BID. Monitor kidney function closely. Continue betablocker and aldactone. No ACEi/ARB due to CKD. I&O: -2330 mL cumulative. Na/fluid restriction diet. Recommend application BLE with SHANAE wraps. Qualifiers: Congestive heart failure type: combined Qualified Code(s): I50.41 - Acute combined systolic (congestive) and diastolic (congestive) heart failure (2) Ischemic cardiomyopathy Current Visit: Yes Status: Acute EF 35%; ischemic in etiology. [facility] on 11/13/16--severe 3v CAD, evaluated by CT surgery who recommended multi- vessel PCI. [facility] 11/14/16: successful PTCA/ELIANA to proximal and mid LAD. Existing 99% Ramus; and severe small vessel disease. Will likely need staged procedure for PCI to ramus--inpatient vs. outpatient. States chest pain has improved since PCI, describes as 2/10, "scratching" in quality. DAPT (asa + plavix) therapy uninterrupted for at least 1 year. Continue betablocker, nitrates, and statin. No issues with right groin cath site. (3) CKD (chronic kidney disease), stage III Current Visit: Yes Status: Acute Scr stable, he has worsening dyspnea/orthopnea and BLE edema today. Has been on IVF with [facility] on 11/13 and 11/14. Discussed with , will start cautious diuresis monitor kidney function closely. Nephrology following, appreciate recommendations. (4) Anemia Current Visit: Yes Status: Acute Lower Hgb compared to previous, 9.9, although has been this low in the past. Reported dark stools. Stool occult blood ordered. Colonoscopy within 3 months that only showed polyps with repeat in 5-10 years. No EGD noted. Continue to monitor. Management per primary team. Qualifiers: Anemia type: unspecified type Qualified Code(s): D64.9 - Anemia, unspecified Discussion w patient/family: The assessment and plan as outlined above was discussed with the patient and/or family members who expressed understanding and agreement. All questions were answered. Thank you for involving us in the care of your patient. Please call with any questions. The patient will be discussed and reviewed with Dr. Huggins. Subjective Principal diagnosis: CKD Interval history: Seen and examined earlier this AM. Reports chest pain/discomfort significantly improved from yesterday. Reports worsening fatgiue, dyspnea, orthpnea, and BLE edema today. No issues with right groin cath site. Objective Vital Signs, Last 4 Hours Temp Pulse Resp BP Pulse Ox 11/15/16 08:28 97.9 F 75 16 152/105 95 General: Conversant, No Apparent Distress HEENT: Atraumatic, Normocephaly Cardiac: Reg Rate and Rhythm, Normal S1 and S2 Lungs: Other (Bibasilar rales) Neuro: Alert and responsive Abdomen: Soft Skin: No rashes noted on visualized skin Extremities: Normal Pulses, Other (+2-3 BLE pitting edema to knees) Results 11/15/16 03:16 11/15/16 03:16 Lab Results 11/15/16 11/15/16 03:16 03:16 WBC 5.5 Hgb 9.8 L Hct 32.1 L Plt Count 216 Sodium 143 Potassium 3.7 Chloride 111 H Carbon Dioxide 25 BUN 27 H Creatinine 1.64 H Glucose 113 H Calcium 8.5 L Total Bilirubin 0.9 D AST 11 ALT 12 Alkaline Phosphatase 89 Active Medications Acetaminophen (Tylenol) 650 mg PO Q6HR PRN PRN Reason: Mild Pain (1-3) Stop: 05/14/17 09:33 Acetylcysteine (Acetylcysteine 20%) 600 mg PO BID [facility] Stop: 11/15/16 21:01 Last Admin: 11/15/16 08:17 Dose: 600 mg Albuterol Sulfate (Proventil Neb) 2.5 mg IH Q2H PRN PRN Reason: Shortness Of Breath/Wheezing Stop: 05/14/17 09:41 Aspirin (Aspirin Ec) 81 mg PO DAILY [facility] Stop: 05/15/17 09:01 Last Admin: 11/15/16 08:07 Dose: 81 mg Atorvastatin Calcium (Lipitor) 80 mg PO HS [facility] Stop: 05/16/17 21:01 Last Admin: 11/14/16 22:29 Dose: 80 mg Benzonatate (Tessalon) 200 mg PO TID PRN PRN Reason: Cough Stop: 05/14/17 09:41 Clopidogrel Bisulfate (Plavix) 75 mg PO DAILY [facility] Stop: 05/17/17 09:01 Last Admin: 11/15/16 08:07 Dose: 75 mg Dextrose/Water (Dextrose 50% (Syg)) 25 ml IVP AD PRN PRN Reason: Hypoglycemia Stop: 05/14/17 13:32 Last Admin: 11/14/16 16:30 Dose: 25 ml Docusate Sodium (Colace) 100 mg PO BID PRN PRN Reason: Constipation Stop: 05/14/17 09:33 Furosemide (Lasix) 40 mg IVP BID [facility] Stop: 05/17/17 12:31 Glucagon (Glucagen) 1 mg IM ONCE PRN PRN Reason: Hypoglycemia Stop: 05/14/17 13:32 Glucose (Gluctose) 15 gm PO ONCE PRN PRN Reason: Hypoglycemia Stop: 05/14/17 13:32 Glucose (Gluctose) 30 gm PO ONCE PRN PRN Reason: Hypoglycemia Stop: 05/14/17 13:32 Guaifenesin (Mucinex) 600 mg PO BID PRN PRN Reason: Congestion Stop: 05/14/17 09:41 Heparin Sodium (Porcine) (Heparin) 5,000 unit SQ Q12HCO [facility] Stop: 05/17/17 18:01 Hydroxyzine Pamoate (Hydroxyzine Pamoate) 25 mg PO Q8H [facility] Stop: 05/14/17 01:16 Last Admin: 11/15/16 08:13 Dose: Not Given Dextrose (Dextrose 5%) 1,000 mls @ 100 mls/hr IVC .Q10H PRN PRN Reason: HYPOGLYCEMIA Stop: 05/14/17 13:32 Sodium Bicarbonate 75 meq/ (Sodium Chloride) 1,075 mls @ 75 mls/hr IVC .[id number] [facility] Stop: 05/17/17 09:31 Insulin Detemir (Levemir) 30 unit SQ HS [facility] Stop: 05/14/17 21:01 Last Admin: 11/14/16 22:30 Dose: Not Given Insulin Human Lispro (Humalog) 0 units SQ HS [facility] PRN Reason: Protocol Stop: 05/14/17 21:01 Last Admin: 11/14/16 22:30 Dose: Not Given Insulin Human Lispro (Humalog) 0 units SQ TIDAC [facility] PRN Reason: Protocol Stop: 05/14/17 16:31 Last Admin: 11/15/16 08:16 Dose: Not Given Isosorbide Mononitrate (Imdur) 60 mg PO DAILY [facility] Stop: 05/14/17 09:01 Last Admin: 11/15/16 08:07 Dose: 60 mg Metoprolol Succinate (Toprol Xl) 150 mg PO DAILY [facility] Stop: 05/15/17 09:01 Last Admin: 11/15/16 08:07 Dose: 150 mg Morphine Sulfate (Morphine Sulfate) 2 mg IVP Q4HR PRN PRN Reason: Severe Pain (7-10) Stop: 05/14/17 09:33 Naloxone HCl (Narcan) 0.4 mg IVP Q2MIN PRN PRN Reason: Opioid Reversal Stop: 05/14/17 09:33 Nitroglycerin (Nitroglycerin) 0.4 mg SL Q5MIN PRN PRN Reason: Chest Pain Stop: 05/16/17 15:04 Omeprazole (Prilosec) 40 mg PO DAILY@0730 [facility] PRN Reason: Protocol Stop: 05/15/17 07:31 Last Admin: 11/15/16 08:07 Dose: 40 mg Oxycodone HCl (Roxicodone) 5 mg PO Q6HR PRN PRN Reason: Moderate Pain (4-6) Stop: 05/14/17 09:33 Polysaccharide Iron Complex (Ferrex 150) 150 mg PO DAILY [facility] Stop: 05/14/17 09:01 Last Admin: 11/15/16 08:07 Dose: 150 mg Potassium Chloride (Potassium Chloride) 10 meq PO DAILY [facility] Stop: 05/14/17 09:01 Last Admin: 11/15/16 08:07 Dose: 10 meq Promethazine HCl (Phenergan) 12.5 mg IVP Q6HR PRN PRN Reason: Nausea And Vomiting Stop: 05/14/17 09:33 Sertraline HCl (Zoloft) 50 mg PO DAILY [facility] Stop: 05/14/17 09:01 Last Admin: 11/15/16 08:07 Dose: 50 mg Silver Nitrate (Silvasorb) 1 appl TP DAILY [facility] Stop: 05/14/17 12:46 Last Admin: 11/14/16 08:33 Dose: 1 appl Spironolactone (Aldactone) 25 mg PO DAILY [facility] Stop: 05/15/17 09:01 Last Admin: 11/15/16 08:07 Dose: 25 mg Vitamin D (Vitamin D) 1,000 unit PO DAILY [facility] Stop: 05/14/17 09:01 Last Admin: 11/15/16 08:07 Dose: 1,000 unit - Imaging and Cardiology Echo: report reviewed Cardiac cath: report reviewed Other Results: Telemetry: avg HR=73 SR. No significant event noted. - EKG Interpretation EKG results cardiology: personally reviewed Consult Discharge Plan - Plan Referrals: Belem Arroyo, SET MAKING MACHINE OPERATOR [Primary Care Provider] -
--- NOTE | 2016-11-15 11:40 | Internal Med Progress Note ---
Date of Encounter: 11/15/16 Time of Encounter: 10:00 - Assessment and plan (1) Diabetes Current Visit: No Status: Chronic Assessment and plan: Patient is on basal and sliding-scale insulin coverage. Glucose is stable. Qualifiers: Diabetes mellitus type: type 2 Diabetes mellitus complication status: with circulatory complication Diabetes mellitus complication detail: with other circulatory complications Diabetes mellitus exterminator helper insulin use: with assisted use Qualified Code(s): E11.59 - Type 2 diabetes mellitus with other circulatory complications; Z79.4 - buttermilk drier operator (current) use of insulin (2) DVT prophylaxis Current Visit: No Status: Acute Assessment and plan: Heparin subcutaneously. (3) Iron deficiency anemia Current Visit: No Status: Chronic Assessment and plan: Patient has history of iron deficiency, on iron pills. Stool guaiac negative. Hemoglobin is stable. Qualifiers: Iron deficiency anemia type: unspecified iron deficiency Qualified Code(s) : D50.9 - Iron deficiency anemia, unspecified (4) CKD (chronic kidney disease), stage III Current Visit: Yes Status: Acute Assessment and plan: Creatinine level is stable. Nephrology on case. Continue follow-up renal function. (5) Systolic congestive heart failure Current Visit: Yes Status: Acute Assessment and plan: Acute systolic CHF with evidence of coronary artery stenosis, consider ischemic cardiomyopathy. - Stenting has been done. - On beta ben and spironolactone - No SHANAE inhibitor or ARB because of poor renal function - Diuretics if renal function improves. Qualifiers: Congestive heart failure chronicity: acute Qualified Code(s): I50.21 - Acute systolic (congestive) heart failure (6) CAD (coronary artery disease) Current Visit: Yes Status: Acute Assessment and plan: S/P stent. No chest pain. Continue aspirin, Plavix, beta ben, atorvastatin , and nitrate. Qualifiers: Coronary Disease-Associated Artery/Lesion type: [place] artery [place] vs. transplanted heart: [place] heart Associated angina: with stable angina Qualified Code(s): I25.118 - Atherosclerotic heart disease of [place] coronary artery with other forms of angina pectoris - Subjective Interval history: Patient is a 49-year-old male admitted for CHF/SOB. Patient had LHC and was found coronary artery stenosis. He had stenting yesterday. Past medical history significant for CHF, CAD, diabetes, hypertension, hyperlipidemia, CKD Patient was seen and examined. Complained of mild shortness of breath. No chest pain. Still leg swelling bilaterally. Pt has CKD and poor renal function which limits diuretics use. Nephrology and cardiology on case. Will continue closely monitor pt. - Constitutional Vitals: Temp Pulse Resp BP Pulse Ox 97.9 F 75 16 152/105 95 11/15/16 08:28 11/15/16 08:28 11/15/16 08:28 11/15/16 08:28 11/15/16 08:28 General appearance: Present: A&O X 3, no acute distress, answers questions appropriately - Head Head exam: Present: atraumatic, normocephalic - Eye Eye exam: Present: PERRL, conjuntiva pink, sclera anicteric Pupils: Present: PERRL - Neck Neck exam general surgery: Present: supple, trachea midline. Absent: lymphadenopathy - Respiratory Respiratory exam: Present: CTAB. Absent: accessory muscle use, rales, rhonchi, wheezes - Cardiovascular Cardiovascular exam: Present: RRR, +S1, +S2. Absent: diastolic murmur, gallop, rubs, systolic murmur - GI/Abdominal GI/Abdominal exam: Present: normal bowel sounds, soft, no peritoneal signs. Absent: distended, tenderness - Extremities Exam Extremities exam: Present: pedal edema (Moderate bilateral leg swelling up to knee.), warm, radial pulses palpable and symetrical. Absent: calf tenderness, cyanotic - Neurological Exam Neurological exam: Present: CN II-XII intact, oriented X3, no focal deficits. Absent: pronater drift, facial droop, speech deficit - Skin Skin exam: Present: dry, intact Internal Medicine: Result - Labs CBC & Chem 7: 11/15/16 03:16 11/15/16 03:16 Labs: Short CBC 11/15/16 Range/Units 03:16 WBC 5.5 (4.3-11.1) K/mcL Hgb 9.8 L (12.9-16.9) g/dL Hct 32.1 L (37.5-50.1) % Plt Count 216 (140-400) K/mcL Neutrophils # 4.1 (1.6-8.9) K/mcL BMP 11/15/16 03:16 Sodium 143 Potassium 3.7 Chloride 111 H Carbon Dioxide 25 BUN 27 H Creatinine 1.64 H Glucose 113 H Calcium 8.5 L Liver Function 11/15/16 Range/Units 03:16 Total Bilirubin 0.9 D (0.2-1.2) mg/dL AST 11 (5-34) Units/L ALT 12 (0-55) Units/L Alkaline Phosphatase 89 (38-126) Units/L Albumin 2.7 L (3.5-5.0) g/dL - ABG Interpretation ABG results: PT/INR, D-dimer PT 12.3 Seconds (9.4-12.1) H 11/11/16 20:27 Consult Discharge Plan - Plan Referrals: Belem Arroyo, SUGAR LABORATORY ASSISTANT [Primary Care Provider] -
[2016-11-15] MEDS: Furosemide 40 MG/4 ML VIAL IVP SCH ×2 (13:09→22:16)
[2016-11-15] MEDS: Silvasorb 44.4 ML TUBE TP SCH (13:16)
[2016-11-15] MEDS: *HR* Heparin 5,000 UNIT/ML VIAL SQ SCH (17:23)
[2016-11-15] MEDS: Sodium Bicarbonate 75 MEQ in 0.45 % Sodium Chloride 1,000 ML IVC SCH (17:27)
[2016-11-15] MEDS: Insulin DETEMIR 100 UNIT/ML X5UNITS SQ SCH (22:17)
[2016-11-16 05:17] LABS: Basophils % 0.4 %; Eosinophils # 0.1 K/mcL (0.0-0.6); Eosinophils % 1.5 %; Hematocrit 30.7 % (37.5-50.1); Hemoglobin 9.3 g/dL (12.9-16.9); Immature Granulocytes % 0.4 % (0-4); Lymphocytes # 0.8 K/mcL (0.6-4.6); Lymphocytes % 17.2 %; Mean Corpuscular HGB Conc 30.3 g/dL (31.6-35.5); Mean Corpuscular Hemoglobin 25.1 pg (28.0-33.3); Mean Platelet Volume 11.4 fL (9.4-12.4); Monocytes # 0.4 K/mcL (0.0-1.3); Monocytes % 8.7 %; Neutrophils # 3.4 K/mcL (1.6-8.9); Platelet Count 205 K/mcL (140-400); Red Cell Distribution Width 15.4 % (11.5-14.5); Segmented Neutrophils % 71.8 %
[2016-11-16 05:39] LABS: Calcium 8.2 mg/dL (8.6-10.8); Potassium 3.9 mEq/L (3.5-4.5)
[2016-11-16] MEDS: hydrOXYzine pamoate 25 MG CAPSULE PO SCH ×3 (05:53→17:39)
[2016-11-16] MEDS: Insulin LISPRO 300 UNITS/3 ML VIAL SQ SCH ×5 (05:53→21:29)
[2016-11-16] MEDS: *HR* Heparin 5,000 UNIT/ML VIAL SQ SCH ×2 (06:37→17:39)
[2016-11-16] MEDS: Furosemide 40 MG/4 ML VIAL IVP SCH ×2 (08:50→20:03)
[2016-11-16] MEDS: Cholecalciferol (D-3) 1,000 UNIT TABLET PO SCH (08:53)
[2016-11-16] MEDS: Metoprolol XL (24 HR) Succ 50 MG TAB.ER.24H PO SCH (08:53)
[2016-11-16] MEDS: Isosorbide MONOnitrate (24 HR) 60 MG TAB.ER.24H PO SCH (08:53)
[2016-11-16] MEDS: Iron Polysaccharide Complex 150 MG CAPSULE PO SCH (08:53)
[2016-11-16] MEDS: Aspirin Enteric Coated 81 MG Tablet PO SCH (08:53)
[2016-11-16] MEDS: Silvasorb 44.4 ML TUBE TP SCH (08:54)
--- NOTE | 2016-11-16 09:56 | Internal Med Progress Note ---
Date of Encounter: 11/16/16 Time of Encounter: 09:56 - Assessment and plan (1) Diabetes Current Visit: Yes Status: Chronic Assessment and plan: A1C >12 2014 FS acceptable Patient is on basal and sliding-scale insulin coverage. Continue same Continue ADA diet. Qualifiers: Diabetes mellitus type: type 2 Diabetes mellitus complication status: with circulatory complication Diabetes mellitus complication detail: with other circulatory complications Diabetes mellitus rat exterminator insulin use: with jail use Qualified Code(s): E11.59 - Type 2 diabetes mellitus with other circulatory complications; Z79.4 - penitentiary (current) use of insulin (2) Hyperlipemia Current Visit: Yes Status: Chronic Assessment and plan: Continue High intensity statin Qualifiers: Hyperlipidemia type: unspecified Qualified Code(s): E78.5 - Hyperlipidemia , unspecified (3) History of CVA (cerebrovascular accident) Current Visit: Yes Status: Chronic Assessment and plan: No residual deficits on exam (4) Burn of foot, right, second degree Current Visit: Yes Status: Chronic Assessment and plan: Chronic, continue wound dressing (5) CHF exacerbation Current Visit: Yes Status: Acute Assessment and plan: Acute systolic and diastolic CHF exacerbation. EF previously 50% in 2016, now 35% with moderate diastolic dysfunction. Worsening dyspnea and lower extremity edema. BNP 2773. CXR with pleural effusions. CKD stage III; SCr stable. LHC: s/p PCI to proximal and mid LAD. I/O -1477 Evidence of weight loss Continue diuresis Monitor renal function Qualifiers: Congestive heart failure type: systolic Qualified Code(s): I50.23 - Acute on chronic systolic (congestive) heart failure (6) CKD (chronic kidney disease), stage III Current Visit: Yes Status: Acute Assessment and plan: Creatinine level is stable. Nephrology on case. Continue follow-up renal function. (7) CAD (coronary artery disease) Current Visit: Yes Status: Acute Assessment and plan: S/P stent. No chest pain. Continue aspirin, Plavix, beta ben, atorvastatin , and nitrate. Qualifiers: Coronary Disease-Associated Artery/Lesion type: [place] artery [place] vs. transplanted heart: [place] heart Associated angina: with stable angina Qualified Code(s): I25.118 - Atherosclerotic heart disease of [place] coronary artery with other forms of angina pectoris (8) Ischemic cardiomyopathy Current Visit: Yes Status: Acute Assessment and plan: EF 35%; ischemic in etiology. [facility] on 11/13/16--severe 3v CAD, evaluated by CT surgery who recommended multi- vessel PCI. [facility] 11/14/16: successful PTCA/ELIANA to proximal and mid LAD. Existing 99% Ramus; and severe small vessel disease. Will likely need staged procedure for PCI to ramus--inpatient vs. outpatient. Continue DAPT, betablocker, nitrates, and statin. (9) HTN (hypertension) Current Visit: Yes Status: Chronic Assessment and plan: Add hydralazine po Continue Imdur, Lasix, Toprol Qualifiers: Hypertension type: essential hypertension Qualified Code(s): I10 - Essential (primary) hypertension (10) Anemia Current Visit: Yes Status: Chronic Assessment and plan: Chronic stable Hb ~9 Continue to monitor Qualifiers: Anemia type: unspecified type Qualified Code(s): D64.9 - Anemia, unspecified - Subjective Interval history: 51 Y/O M with acute systolic CHF and ischemic CMP s/p [facility] with stents placed Seen and evaluated at bedside Reports some improvement Still having orthopnea VS with uncontrolled BP CR stable - Constitutional Vitals: Temp Pulse Resp BP Pulse Ox 98.3 F 79 20 150/89 95 11/16/16 07:30 11/16/16 09:10 11/16/16 07:30 11/16/16 07:30 11/16/16 07:30 VSS Gen: Not in any form of distress, speaks full sentences, Neuro: AAOX3, moves all limbs spontaneously, no focal deficits, no speech abnormality or facial asymmetry HEENT: Scalp with evidence of carrero, healed, Moist mucosa, no cyanosis, YI Chest: CTAB, no wheezes, rhonchi, stridor Heart: S1, S2,no m/g/r Abdomen: Soft, not tender, no palpably enlarged organs Extremities: Bilateral 2+ pitting pedal edema, pulses present and equal bilaterally General appearance: Present: A&O X 3, no acute distress, answers questions appropriately Internal Medicine: Result - Labs CBC & Chem 7: 11/16/16 04:14 11/16/16 04:14 Labs: Short CBC 11/16/16 Range/Units 04:14 WBC 4.7 (4.3-11.1) K/mcL Hgb 9.3 L (12.9-16.9) g/dL Hct 30.7 L (37.5-50.1) % Plt Count 205 (140-400) K/mcL Neutrophils # 3.4 (1.6-8.9) K/mcL BMP 11/16/16 04:14 Sodium 143 Potassium 3.9 Chloride 110 H Carbon Dioxide 23 BUN 26 Creatinine 1.68 H Glucose 180 H Calcium 8.2 L - ABG Interpretation ABG results: PT/INR, D-dimer PT 12.3 Seconds (9.4-12.1) H 11/11/16 20:27 Consult Discharge Plan - Plan Referrals: Belem Arroyo, [employer]ER [Primary Care Provider] -
--- NOTE | 2016-11-16 10:21 | Internal Med Progress Note ---
Date of Encounter: 11/16/16 Time of Encounter: 10:21 - Constitutional Vitals: Temp Pulse Resp BP Pulse Ox 98.3 F 79 20 150/89 95 11/16/16 07:30 11/16/16 09:10 11/16/16 07:30 11/16/16 07:30 11/16/16 07:30 General appearance: Present: A&O X 3, no acute distress, answers questions appropriately Internal Medicine: Result - Labs CBC & Chem 7: 11/16/16 04:14 11/16/16 04:14 Labs: Short CBC 11/16/16 Range/Units 04:14 WBC 4.7 (4.3-11.1) K/mcL Hgb 9.3 L (12.9-16.9) g/dL Hct 30.7 L (37.5-50.1) % Plt Count 205 (140-400) K/mcL Neutrophils # 3.4 (1.6-8.9) K/mcL BMP 11/16/16 04:14 Sodium 143 Potassium 3.9 Chloride 110 H Carbon Dioxide 23 BUN 26 Creatinine 1.68 H Glucose 180 H Calcium 8.2 L - ABG Interpretation ABG results: PT/INR, D-dimer PT 12.3 Seconds (9.4-12.1) H 11/11/16 20:27 Consult Discharge Plan - Plan Referrals: Belem Arroyo, [employer] SUR[employer]YOR [Primary Care Provider] -
--- NOTE | 2016-11-16 10:49 | Nephrology Progress Note ---
Date of Encounter: 11/16/16 Time of Encounter: 10:20 - Assessment and Plan (1) CKD (chronic kidney disease), stage III Current Visit: Yes Status: Acute Creatinine improved from 1.8 on admission to 1.64yesterday, 1.68 today.Has received 3 doses of lasix since yesterday. Continued renal protective measures as patient received contrast for heart cath and with diuresis for for CHF. (2) CAD (coronary artery disease) Current Visit: Yes Status: Acute Per primary and cardiology teams. Patient s/p [facility] with stenting yesterday. Qualifiers: Coronary Disease-Associated Artery/Lesion type: [place] artery [place] vs. transplanted heart: [place] heart Associated angina: with stable angina Qualified Code(s): I25.118 - Atherosclerotic heart disease of [place] coronary artery with other forms of angina pectoris (3) CHF (congestive heart failure) Current Visit: Yes Status: Acute Per primary and cardiology teams. Patient started yesterday on lasix 40mg IV BID. Qualifiers: Congestive heart failure type: diastolic Congestive heart failure chronicity: unspecified congestive heart failure chronicity Qualified Code(s) : I50.30 - Unspecified diastolic (congestive) heart failure (4) Iron deficiency anemia Current Visit: No Status: Chronic Patient on oral iron supplementation. Qualifiers: Iron deficiency anemia type: unspecified iron deficiency Qualified Code(s) : D50.9 - Iron deficiency anemia, unspecified Subjective Principal diagnosis: CKD Interval history: Patient seen and examined at bedside. No new complaints, states he still has orthopnea. Objective - Vital Signs Vital signs: Vital Signs Temp Pulse Resp BP Pulse Ox 11/16/16 09:10 79 11/16/16 07:30 98.3 F 78 20 150/89 95 11/16/16 04:14 98.1 F 81 25 147/93 95 11/16/16 01:12 98.5 F 80 25 143/85 94 11/15/16 20:43 98.2 F 80 24 142/91 93 11/15/16 19:30 79 11/15/16 15:30 98 F 80 16 130/91 94 11/15/16 14:05 80 11/15/16 11:42 98.1 F 18 147/103 97 Intake and Output 11/15/16 11/16/16 11/16/16 23:59 07:59 15:59 Intake Total 815 / 815 120 / 120 Output Total 350 / 350 775 / 775 Balance 465 / 465 -655 / -655 Intake: IV Fluids 278 / 278 Sodium Bicarbonate 75 MEQ 278 / 278 In 0.45% Sodium Chloride 1000 Ml 1000 Ml 1,000 ML @ 75 mls/hr IVC .[id number] QUIANA Rx#:[id number] Oral 537 / 537 120 / 120 Output: Urine 350 / 350 775 / 775 Other: Stool Size Small Small Stool Consistency soft soft Stool Color Brown Green # Voids 2 # Bowel Movements 1 Weight 82 kg Blood Glucose* 176 177 Patient Weight 11/16/16 23:59 Weight 82 kg - General Appearance General appearance: Present: well-developed, well-nourished, appears started age EENT: Present: mucous membranes moist, hearing intact, vision intact Neck: Present: supple Respiratory: Present: clear. Absent: wheezing, rales, course breath sounds, rhonchi Cardiology: Present: edema (1+ RLE edema, no LLE edema, nhan wraps applied to legs bilaterally.), regular rate, regular rhythm Gastrointestinal: Present: normoactive bowel sounds, no tenderness, no guarding Integumentary: Present: no rash, warm and dry Neurologic: Present: no focal deficit, alert and oriented x3 Musculoskeletal: Present: no deformities, no erythema, no cyanosis Psychiatric: Present: mood/affect appropriate, cooperative - Lab 11/16/16 04:14 11/16/16 04:14 Most recent lab results Calcium 8.2 mg/dL (8.6-10.8) L 11/16/16 04:14 Phosphorus 4.8 mg/dL (2.3-4.7) H 11/13/16 02:54 Magnesium 1.7 mg/dL (1.6-2.6) 11/13/16 02:54 Consult Discharge Plan - Plan Referrals: Belem Arroyo CNP [Primary Care Provider] - 11/29/16 8:30 am Deandre Sepulveda DO [Partnered Physician] - 11/19/16 1:10 pm
[2016-11-16] MEDS: hydrALAZINE 25 MG TABLET PO SCH ×2 (11:58→17:39)
--- NOTE | 2016-11-16 13:14 | Cardiology Progress Note ---
Date of Encounter: 11/16/16 Time of Encounter: 13:13 Assessment and Plan (1) Acute CHF Current Visit: Yes Status: Acute Acute systolic and diastolic CHF exacerbation. EF previously 50% in 2016, now 35% with moderate diastolic dysfunction. Worsening dyspnea and lower extremity edema. BNP 2773. CXR with pleural effusions. CKD stage III; SCr stable. LHC: s/p PCI to proximal and mid LAD. Continues to have volume overload today upon exam, orthopnea with +2-3 BLE edema. Recommend continuing IV diuresis. He received 1L IV sodium bicarbonate per nephrology for BLAS prevention. Monitor kidney function closely. Continue betablocker and aldactone. Continue imdur and hydralizine. Increase imdur today. B/p 150/80. No ACEi/ARB due to CKD. I&O: +1330 mL for 24 hours. Negative -1470 cumulative. Na/fluid restriction diet. BLE with SHANAE wraps in place. Qualifiers: Congestive heart failure type: combined Qualified Code(s): I50.41 - Acute combined systolic (congestive) and diastolic (congestive) heart failure (2) Ischemic cardiomyopathy Current Visit: Yes Status: Acute EF 35%; ischemic in etiology. [facility] on 11/13/16--severe 3v CAD, evaluated by CT surgery who recommended multi- vessel PCI. [facility] 11/14/16: successful PTCA/ELIANA to proximal and mid LAD. Existing 99% Ramus; and severe small vessel disease. Will likely need staged procedure for PCI to ramus--inpatient vs. outpatient. Denies recurrent chest pain overnight. DAPT (asa + plavix) therapy uninterrupted for at least 1 year. Continue betablocker, nitrates, and statin. Cardiac rehab consulted. (3) Anemia Current Visit: Yes Status: Chronic Lower Hgb compared to previous, 9.3, although has been this low in the past. Stable during stay. Stool occult negative. No signs of bleeding. Qualifiers: Anemia type: unspecified type Qualified Code(s): D64.9 - Anemia, unspecified (4) CKD (chronic kidney disease), stage III Current Visit: Yes Status: Acute Creatinine stable. Nephrology following. Discussion w patient/family: The assessment and plan as outlined above was discussed with the patient and/or family members who expressed understanding and agreement. All questions were answered. Thank you for involving us in the care of your patient. Please call with any questions. Subjective Principal diagnosis: CKD Interval history: Pt continues to c/o SOB and orthopnea. Objective Vital Signs, Last 4 Hours Temp Pulse Resp Pulse Ox 11/16/16 11:53 97.6 F 81 17 96 General: Conversant, No Apparent Distress HEENT: Atraumatic, Normocephaly, Mucus Membranes Moist, Other (Scars noted on nose and forehead) Neck: No JVD, Normal carotid pulses Cardiac: Reg Rate and Rhythm, Normal S1 and S2, No Murmur Lungs: Normal Breath Sounds, No Wheeze, Rales, Rhonchi, Other (lungs diminished bilaterally. ) Neuro: Alert and responsive, No focal deficits noted Abdomen: Soft, Non-Tender Skin: No rashes noted on visualized skin Musculoskeletal: No Chest Wall Tenderness Extremities: No Clubbing, No Cyanosis, Normal Pulses, Other (2+ BLE edema up to knees. Bilat leg wraps intact. ) Results 11/16/16 04:14 11/16/16 04:14 Lab Results 11/16/16 11/16/16 04:14 04:14 WBC 4.7 Hgb 9.3 L Hct 30.7 L Plt Count 205 Sodium 143 Potassium 3.9 Chloride 110 H Carbon Dioxide 23 BUN 26 Creatinine 1.68 H Glucose 180 H Calcium 8.2 L - Imaging and Cardiology Echo: report reviewed - EKG Interpretation EKG results cardiology: personally reviewed Consult Discharge Plan - Plan Referrals: Belem Arroyo CNP [Primary Care Provider] - 11/29/16 8:30 am Deandre Sepulveda DO [Partnered Physician] - 11/19/16 1:10 pm
[2016-11-16] MEDS ORDERED: Isosorbide MONOnitrate (24 HR) 30 MG TAB.ER.24H PO ONE (13:35)
[2016-11-16] MEDS: Insulin DETEMIR 100 UNIT/ML X5UNITS SQ SCH (21:30)
[2016-11-17] MEDS: hydrALAZINE 25 MG TABLET PO SCH ×4 (00:16→16:53)
[2016-11-17] MEDS: hydrOXYzine pamoate 25 MG CAPSULE PO SCH ×3 (00:16→16:53)
[2016-11-17] MEDS: *HR* Heparin 5,000 UNIT/ML VIAL SQ SCH ×2 (04:57→16:53)
[2016-11-17] MEDS: Silvasorb 44.4 ML TUBE TP SCH (05:00)
[2016-11-17 05:01] LABS: Basophils % 0.6 %; Eosinophils # 0.1 K/mcL (0.0-0.6); Eosinophils % 1.8 %; Hematocrit 30.2 % (37.5-50.1); Hemoglobin 9.4 g/dL (12.9-16.9); Immature Granulocytes % 0.4 % (0-4); Lymphocytes # 0.9 K/mcL (0.6-4.6); Lymphocytes % 18.6 %; Mean Corpuscular HGB Conc 31.1 g/dL (31.6-35.5); Mean Corpuscular Hemoglobin 25.7 pg (28.0-33.3); Mean Corpuscular Volume 82.5 fL (83.0-100.0); Monocytes # 0.4 K/mcL (0.0-1.3); Monocytes % 8.5 %; Neutrophils # 3.5 K/mcL (1.6-8.9); Platelet Count 206 K/mcL (140-400); Red Blood Count 3.66 M/mcL (4.19-5.50); Red Cell Distribution Width 15.3 % (11.5-14.5); Segmented Neutrophils % 70.1 %
[2016-11-17 05:13] LABS: Calcium 8.5 mg/dL (8.6-10.8); Potassium 3.4 mEq/L (3.5-4.5)
[2016-11-17 05:26] LABS: Hemoglobin A1C 6.9 %
[2016-11-17] MEDS: Isosorbide MONOnitrate (24 HR) 60 MG TAB.ER.24H PO SCH (07:42)
[2016-11-17] MEDS: Aspirin Enteric Coated 81 MG Tablet PO SCH (07:43)
[2016-11-17] MEDS: Cholecalciferol (D-3) 1,000 UNIT TABLET PO SCH (07:44)
[2016-11-17] MEDS: Iron Polysaccharide Complex 150 MG CAPSULE PO SCH (07:44)
[2016-11-17] MEDS: Metoprolol XL (24 HR) Succ 50 MG TAB.ER.24H PO SCH (07:45)
[2016-11-17] MEDS: Furosemide 40 MG/4 ML VIAL IVP SCH ×2 (07:45→20:48)
[2016-11-17] MEDS: Insulin LISPRO 300 UNITS/3 ML VIAL SQ SCH ×4 (07:46→22:27)
--- NOTE | 2016-11-17 09:13 | Nephrology Progress Note ---
Date of Encounter: 11/17/16 Time of Encounter: 10:10 - Assessment and Plan (1) CKD (chronic kidney disease), stage III Current Visit: Yes Status: Acute Creatinine improved from 1.8->1.86 on admission to 1.6 today with diuresis. Likely secondary to better perfusion to the kidneys, s/p cardiac intervention with stenting and diuresis. Continued renal protective measures. Avoid nephrotoxins. (2) CAD (coronary artery disease) Current Visit: Yes Status: Acute Per primary and cardiology teams. Patient s/p [facility] with stenting yesterday. Qualifiers: Coronary Disease-Associated Artery/Lesion type: [place] artery [place] vs. transplanted heart: [place] heart Associated angina: with stable angina Qualified Code(s): I25.118 - Atherosclerotic heart disease of [place] coronary artery with other forms of angina pectoris (3) CHF (congestive heart failure) Current Visit: Yes Status: Acute Per primary and cardiology teams. Patient on lasix 40mg IV BID, kidneys tolerating well. Will monitor to monitor kidney function closely. Qualifiers: Congestive heart failure type: diastolic Congestive heart failure chronicity: unspecified congestive heart failure chronicity Qualified Code(s) : I50.30 - Unspecified diastolic (congestive) heart failure (4) Iron deficiency anemia Current Visit: No Status: Chronic Patient on oral iron supplementation. Will complete additional workup with B12 and folate. Discuss further replacement with primary team. Qualifiers: Iron deficiency anemia type: unspecified iron deficiency Qualified Code(s) : D50.9 - Iron deficiency anemia, unspecified Subjective Principal diagnosis: CKD Interval history: Patient seen and examined at bedside. No new complaints, states he still has orthopnea. Objective - Vital Signs Vital signs: Vital Signs Temp Pulse Resp BP Pulse Ox 11/17/16 07:43 98.4 F 72 18 122/82 98 11/17/16 04:33 98.1 F 81 16 144/83 92 11/16/16 23:56 98.5 F 79 15 145/82 91 11/16/16 20:29 98.4 F 80 18 136/102 90 11/16/16 15:46 98.4 F 80 16 126/67 93 11/16/16 11:53 97.6 F 81 17 96 Intake and Output 11/16/16 11/17/16 11/17/16 23:59 07:59 15:59 Intake Total 360 / 360 Output Total 750 / 750 250 / 250 Balance -750 / -750 -250 / -250 360 / 360 Intake: Oral 360 / 360 Output: Urine 750 / 750 250 / 250 Other: Meal Breakfast Percent of Meal Consumed 100% Blood Glucose* 148 86 - General Appearance General appearance: Present: well-developed, well-nourished, appears started age EENT: Present: ATNC, mucous membranes moist, hearing intact, vision intact Neck: Present: supple Respiratory: Present: clear. Absent: wheezing, rales, course breath sounds, rhonchi Cardiology: Present: edema (2+ RLE edema, trace LLE edema; nhan wraps on lower calves.), regular rate, regular rhythm Gastrointestinal: Present: normoactive bowel sounds, no tenderness, no guarding Integumentary: Present: no rash, warm and dry Neurologic: Present: no focal deficit, alert and oriented x3 Musculoskeletal: Present: no deformities, no erythema, no cyanosis Psychiatric: Present: mood/affect appropriate, cooperative - Lab 11/17/16 04:52 11/17/16 04:52 Most recent lab results Calcium 8.5 mg/dL (8.6-10.8) L 11/17/16 04:52 Phosphorus 4.8 mg/dL (2.3-4.7) H 11/13/16 02:54 Magnesium 1.7 mg/dL (1.6-2.6) 11/13/16 02:54 Consult Discharge Plan - Plan Referrals: Belem Arroyo CNP [Primary Care Provider] - 11/29/16 8:30 am Deandre Sepulveda DO [Partnered Physician] - 11/19/16 1:10 pm
[2016-11-17] MEDS ORDERED: *HR* OxyCODONE Immed Rel 5 MG TABLET PO PRN (09:20)
--- NOTE | 2016-11-17 10:07 | Cardiology Progress Note ---
Date of Encounter: 11/17/16 Time of Encounter: 10:04 Assessment and Plan (1) Acute CHF Current Visit: Yes Status: Acute Acute systolic and diastolic CHF exacerbation. EF previously 50% in 2016, now 35% with moderate diastolic dysfunction. Worsening dyspnea and lower extremity edema. BNP 2773. CXR with pleural effusions. CKD stage III; SCr improving with diuresis. LHC: s/p PCI to proximal and mid LAD. Continues to have volume overload today upon exam, orthopnea with +2-3 BLE edema. Recommend continuing IV diuresis. Monitor kidney function closely. Continue betablocker and aldactone. Continue imdur and hydralizine. Increased imdur yesterday and tolerating well. No ACEi/ARB due to CKD. I&O: -1755 mL for 24 hours. Negative -2467 cumulative. Na/fluid restriction diet. BLE with ISSAC wraps in place. Qualifiers: Congestive heart failure type: combined Qualified Code(s): I50.41 - Acute combined systolic (congestive) and diastolic (congestive) heart failure (2) Ischemic cardiomyopathy Current Visit: Yes Status: Acute EF 35%; ischemic in etiology. [facility] on 11/13/16--severe 3v CAD, evaluated by CT surgery who recommended multi- vessel PCI. [facility] 11/14/16: successful PTCA/ELIANA to proximal and mid LAD. Existing 99% Ramus; and severe small vessel disease. Will likely need staged procedure for PCI to ramus--inpatient vs. outpatient. Denies recurrent chest pain overnight. DAPT (asa + plavix) therapy uninterrupted for at least 1 year. Continue betablocker, nitrates, and statin. Cardiac rehab consulted. (3) Anemia Current Visit: Yes Status: Chronic Lower Hgb compared to previous, 9.3, although has been this low in the past. Stable during stay. Stool occult negative. No signs of bleeding. Qualifiers: Anemia type: unspecified type Qualified Code(s): D64.9 - Anemia, unspecified (4) CKD (chronic kidney disease), stage III Current Visit: Yes Status: Acute Creatinine improving with diuresis. Nephrology following. Discussion w patient/family: The assessment and plan as outlined above was discussed with the patient and/or family members who expressed understanding and agreement. All questions were answered. Thank you for involving us in the care of your patient. Please call with any questions. Subjective Principal diagnosis: CKD Interval history: Pt sitting in chair without any discomfort. Reports SOB and orthopnea is unchanged. Objective Vital Signs, Last 4 Hours Temp Pulse Resp BP Pulse Ox 11/17/16 07:43 98.4 F 72 18 122/82 98 General: Conversant, No Apparent Distress HEENT: Atraumatic, Normocephaly, Mucus Membranes Moist Neck: No JVD, Normal carotid pulses Cardiac: Reg Rate and Rhythm, Normal S1 and S2, No Murmur Lungs: Normal Breath Sounds, No Wheeze, Rales, Rhonchi Neuro: Alert and responsive, No focal deficits noted Abdomen: Soft, Non-Tender Skin: No rashes noted on visualized skin Musculoskeletal: No Chest Wall Tenderness Extremities: No Clubbing, No Cyanosis, Normal Pulses, Other ([place] wraps on BLE. 2 + edema up to knees. Bilateral arm ) Results 11/17/16 04:52 11/17/16 04:52 Lab Results 11/17/16 11/17/16 04:52 04:52 WBC 5.0 Hgb 9.4 L Hct 30.2 L Plt Count 206 Sodium 144 Potassium 3.4 L Chloride 109 Carbon Dioxide 27 BUN 23 Creatinine 1.60 H Glucose 92 Calcium 8.5 L Consult Discharge Plan - Plan Referrals: Belem Arroyo CNP [Primary Care Provider] - 11/29/16 8:30 am Deandre Sepulveda DO [Partnered Physician] - 11/19/16 1:10 pm
[2016-11-17 12:47] LABS: Folate 6.9 ng/mL (7.0-31.4)
[2016-11-17] MEDS ORDERED: Ondansetron 4 MG/2 ML VIAL IVP PRN (13:08)
--- NOTE | 2016-11-17 15:05 | Internal Med Progress Note ---
Date of Encounter: 11/17/16 Time of Encounter: 12:50 - Assessment and plan (1) CHF exacerbation Current Visit: Yes Status: Acute Assessment and plan: Acute systolic and diastolic CHF exacerbation. EF previously 50% in 2016, now 35% with moderate diastolic dysfunction. Worsening dyspnea and lower extremity edema. BNP 2773. CXR with pleural effusions. CKD stage III; SCr stable. LHC: s/p PCI to proximal and mid LAD. I/O -1477 Evidence of weight loss Continue diuresis Monitor renal function Cardiology input appreciated Qualifiers: Congestive heart failure type: systolic Qualified Code(s): I50.23 - Acute on chronic systolic (congestive) heart failure (2) Anemia Current Visit: Yes Status: Chronic Assessment and plan: Chronic stable Hb ~9 Continue to monitor Hx of iron deficiency anemia, continue iron supplementation Qualifiers: Anemia type: unspecified type Qualified Code(s): D64.9 - Anemia, unspecified (3) CAD (coronary artery disease) Current Visit: Yes Status: Acute Assessment and plan: S/P stent. No chest pain. Continue aspirin, Plavix, beta ben, atorvastatin , and nitrate. Qualifiers: Coronary Disease-Associated Artery/Lesion type: [place] artery [place] vs. transplanted heart: [place] heart Associated angina: with stable angina Qualified Code(s): I25.118 - Atherosclerotic heart disease of [place] coronary artery with other forms of angina pectoris (4) CKD (chronic kidney disease), stage III Current Visit: Yes Status: Acute Assessment and plan: Creatinine level is stable. Nephrology on case. Continue follow-up renal function. (5) Diabetes Current Visit: Yes Status: Chronic Assessment and plan: A1C significantly improved since 2013, HbA1c: 6.9 FS acceptable Patient is on basal and sliding-scale insulin coverage. Continue same Continue ADA diet. Qualifiers: Diabetes mellitus type: type 2 Diabetes mellitus complication status: with circulatory complication Diabetes mellitus complication detail: with other circulatory complications Diabetes mellitus intermodal customer service insulin use: with intermodal customer service use Qualified Code(s): E11.59 - Type 2 diabetes mellitus with other circulatory complications; Z79.4 - superintendent container terminal (current) use of insulin (6) History of CVA (cerebrovascular accident) Current Visit: Yes Status: Chronic Assessment and plan: No residual deficits on exam (7) HTN (hypertension) Current Visit: Yes Status: Chronic Assessment and plan: BP within acceptable range Continue Imdur, Lasix, Toprol, hydralazine po Qualifiers: Hypertension type: essential hypertension Qualified Code(s): I10 - Essential (primary) hypertension (8) Hypokalemia Current Visit: No Status: Acute Assessment and plan: K supplemented continue to monitor electrolytes and replace as needed (9) DVT prophylaxis Current Visit: No Status: Acute Assessment and plan: Heparin SQ - Subjective Interval history: Patient seen and examined. Resting in chair, reports of feeling better but continues to have orthopenia and LE edema. Currently saturating well on room air. No overnight issues reported. - Constitutional Vitals: Temp Pulse Resp BP Pulse Ox 97.6 F 71 16 129/86 99 11/17/16 11:31 11/17/16 11:31 11/17/16 11:31 11/17/16 11:31 11/17/16 11:31 General appearance: Present: A&O X 3, no acute distress, answers questions appropriately - Head Head exam: Present: atraumatic, normocephalic - Eye Eye exam: Present: conjuntiva pink, sclera anicteric - Respiratory Respiratory exam: Present: decreased breath sounds. Absent: respiratory distress, wheezes (bibasilar crackles) - Cardiovascular Cardiovascular exam: Present: RRR, +S1, +S2. Absent: diastolic murmur, gallop, rubs, systolic murmur - GI/Abdominal GI/Abdominal exam: Present: normal bowel sounds, soft, no peritoneal signs. Absent: distended, tenderness - Extremities Exam Extremities exam: Present: pedal edema, warm, radial pulses palpable and symetrical. Absent: calf tenderness - Neurological Exam Neurological exam: Present: alert, oriented X3 - Psychiatric Psychiatric exam: Present: normal affect, normal mood Internal Medicine: Result - Labs CBC & Chem 7: 11/17/16 04:52 11/17/16 04:52 Labs: Short CBC 11/17/16 Range/Units 04:52 WBC 5.0 (4.3-11.1) K/mcL Hgb 9.4 L (12.9-16.9) g/dL Hct 30.2 L (37.5-50.1) % Plt Count 206 (140-400) K/mcL Neutrophils # 3.5 (1.6-8.9) K/mcL BMP 11/17/16 04:52 Sodium 144 Potassium 3.4 L Chloride 109 Carbon Dioxide 27 BUN 23 Creatinine 1.60 H Glucose 92 Calcium 8.5 L - ABG Interpretation ABG results: PT/INR, D-dimer PT 12.3 Seconds (9.4-12.1) H 11/11/16 20:27 Consult Discharge Plan - Plan Referrals: Belem Arroyo CNP [Primary Care Provider] - 11/29/16 8:30 am Deandre Sepulveda DO [Partnered Physician] - 11/19/16 1:10 pm
[2016-11-17] MEDS: Insulin DETEMIR 100 UNIT/ML X5UNITS SQ SCH (20:49)
[2016-11-18] MEDS: hydrOXYzine pamoate 25 MG CAPSULE PO SCH ×3 (00:51→17:01)
[2016-11-18] MEDS: hydrALAZINE 25 MG TABLET PO SCH ×5 (00:51→23:40)
[2016-11-18 03:19] LABS: Basophils % 0.6 %; Eosinophils # 0.1 K/mcL (0.0-0.6); Eosinophils % 2.1 %; Hematocrit 30.3 % (37.5-50.1); Hemoglobin 9.3 g/dL (12.9-16.9); Immature Granulocytes % 0.4 % (0-4); Lymphocytes # 0.9 K/mcL (0.6-4.6); Lymphocytes % 19.5 %; Mean Corpuscular HGB Conc 30.7 g/dL (31.6-35.5); Mean Corpuscular Hemoglobin 25.1 pg (28.0-33.3); Mean Corpuscular Volume 81.7 fL (83.0-100.0); Mean Platelet Volume 10.6 fL (9.4-12.4); Monocytes # 0.4 K/mcL (0.0-1.3); Monocytes % 9.3 %; Neutrophils # 3.2 K/mcL (1.6-8.9); Platelet Count 207 K/mcL (140-400); Red Blood Count 3.71 M/mcL (4.19-5.50); Red Cell Distribution Width 15.3 % (11.5-14.5); Segmented Neutrophils % 68.1 %
[2016-11-18 03:39] LABS: Calcium 8.4 mg/dL (8.6-10.8); Magnesium 1.8 mg/dL (1.6-2.6); Phosphorous 4.7 mg/dL (2.3-4.7); Potassium 3.8 mEq/L (3.5-4.5)
[2016-11-18] MEDS: *HR* Heparin 5,000 UNIT/ML VIAL SQ SCH ×2 (06:15→17:01)
[2016-11-18] MEDS ORDERED: Furosemide 40 MG TABLET PO SCH (09:00)
--- NOTE | 2016-11-18 09:12 | Nephrology Progress Note ---
Date of Encounter: 11/18/16 Time of Encounter: 10:30 - Assessment and Plan (1) CKD (chronic kidney disease), stage III Current Visit: Yes Status: Acute Creatinine improved from 1.8->1.86 on admission to 1.6 yesterday, 1.72 today with diuresis. Initial improvement likely secondary to better perfusion to the kidneys, s/p cardiac intervention with stenting and diuresis. Continued renal protective measures. Monitor kidney function closely while diuretics in use. Avoid nephrotoxins. (2) CAD (coronary artery disease) Current Visit: Yes Status: Acute Per primary and cardiology teams. Patient s/p [facility] with stenting.. Qualifiers: Coronary Disease-Associated Artery/Lesion type: [place] artery [place] vs. transplanted heart: [place] heart Associated angina: with stable angina Qualified Code(s): I25.118 - Atherosclerotic heart disease of [place] coronary artery with other forms of angina pectoris (3) CHF (congestive heart failure) Current Visit: Yes Status: Acute Per primary and cardiology teams. Patient on lasix 40mg IV BID; planning for transition to PO diuretics. Will monitor to monitor kidney function closely. Qualifiers: Congestive heart failure type: diastolic Congestive heart failure chronicity: unspecified congestive heart failure chronicity Qualified Code(s) : I50.30 - Unspecified diastolic (congestive) heart failure (4) Iron deficiency anemia Current Visit: No Status: Chronic Patient on oral iron supplementation. Replacing with Iron sucrose. Folate 6.9 B12 513 Qualifiers: Iron deficiency anemia type: unspecified iron deficiency Qualified Code(s) : D50.9 - Iron deficiency anemia, unspecified (5) Folate deficiency Current Visit: Yes Status: Acute Folate 6.9. Start replacement with folic acid.. Subjective Principal diagnosis: CKD Interval history: Patient seen and examined at bedside. No new complaints, states he still has orthopnea. Objective - Vital Signs Vital signs: Vital Signs Temp Pulse Resp BP Pulse Ox 11/18/16 07:34 98.0 F 76 16 124/75 95 11/18/16 04:27 98.2 F 70 16 135/73 96 11/18/16 00:34 98.1 F 72 18 134/76 95 11/17/16 20:17 97.9 F 77 18 133/78 96 11/17/16 16:31 97.4 F L 84 17 133/85 94 11/17/16 11:31 97.6 F 71 16 129/86 99 Intake and Output 11/17/16 11/18/16 11/18/16 23:59 07:59 15:59 Intake Total 240 / 240 Output Total 280 / 280 900 / 900 Balance -280 / -280 -900 / -900 240 / 240 Intake: Oral 240 / 240 Output: Urine 280 / 280 900 / 900 Other: Meal Breakfast Percent of Meal Consumed 75% Blood Glucose* 180 121 - General Appearance General appearance: Present: well-developed, well-nourished, appears started age EENT: Present: ATNC, mucous membranes moist, hearing intact, vision intact Neck: Present: supple Respiratory: Present: clear Cardiology: Present: edema (2+RLE, 1+ LLE edema), regular rate, regular rhythm Gastrointestinal: Present: no tenderness, no guarding Integumentary: Present: no rash, warm and dry Neurologic: Present: no focal deficit, alert and oriented x3 Musculoskeletal: Present: no deformities, no erythema, no cyanosis Psychiatric: Present: mood/affect appropriate, cooperative - Lab 11/18/16 03:07 11/18/16 03:07 Most recent lab results Calcium 8.4 mg/dL (8.6-10.8) L 11/18/16 03:07 Phosphorus 4.7 mg/dL (2.3-4.7) 11/18/16 03:07 Magnesium 1.8 mg/dL (1.6-2.6) 11/18/16 03:07 Consult Discharge Plan - Plan Referrals: Belem Arroyo CNP [Primary Care Provider] - 11/29/16 8:30 am (Please follow up as schedule...) Deandre Sepulveda DO [Partnered Physician] - 11/19/16 1:10 pm (Please follow up as schedule...) Fiona Barker CNP [Partnered Physician] - 11/23/16 11:00 am (Please follow up as schedule..)
--- NOTE | 2016-11-18 10:33 | Cardiology Progress Note ---
Date of Encounter: 11/18/16 Time of Encounter: 10:00 Assessment and Plan (1) Acute CHF Current Visit: Yes Status: Acute Acute systolic and diastolic CHF exacerbation. EF previously 50% in 2016, now 35% with moderate diastolic dysfunction. Worsening dyspnea, orthopnea, and lower extremity edema. on admission. BNP 2773. CXR with pleural effusions. CKD stage III; SCr increased from 1.60 to 1.72. Change IV lasix to oral. Weight down and edema improved. Continues to have orthopnea. Edema appears to be more one sided today. C/o pain and redness in right upper extremity. Edema may be persistent d/t low albumin. LHC: s/p PCI to proximal and mid LAD. Continue betablocker and aldactone. Continue imdur and hydralizine. No ACEi/ARB due to CKD. I&O: -3830 cumulative. Na/fluid restriction diet. Change lasix to oral dosing. We will do a laying flat test with SPO2. Recheck CXR and BNP. Check venous dopplers. Qualifiers: Congestive heart failure type: combined Qualified Code(s): I50.41 - Acute combined systolic (congestive) and diastolic (congestive) heart failure (2) Ischemic cardiomyopathy Current Visit: Yes Status: Acute EF 35%; ischemic in etiology. [facility] on 11/13/16--severe 3v CAD, evaluated by CT surgery who recommended multi- vessel PCI. [facility] 11/14/16: successful PTCA/ELIANA to proximal and mid LAD. Existing 99% Ramus; and severe small vessel disease. Will likely need staged procedure for PCI to ramus-- outpatient. Denies recurrent chest pain overnight. DAPT (asa + plavix) therapy uninterrupted for at least 1 year. Continue betablocker, nitrates, and statin. Cardiac rehab consulted. (3) Anemia Current Visit: Yes Status: Chronic Lower Hgb compared to previous, 9.3, although has been this low in the past. Stable during stay. Stool occult negative. No signs of bleeding. Qualifiers: Anemia type: unspecified type Qualified Code(s): D64.9 - Anemia, unspecified (4) CKD (chronic kidney disease), stage III Current Visit: Yes Status: Acute Nephrology following. Input appreciated. Discussion w patient/family: The assessment and plan as outlined above was discussed with the patient and/or family members who expressed understanding and agreement. All questions were answered. Thank you for involving us in the care of your patient. Please call with any questions. Subjective Principal diagnosis: acute systolic heart failure, CAD Interval history: Pt sitting in chair without any discomfort. On room air. Reports at least 10lb weight loss since admission. Feel like he lost weight. BLE improved. Continues to have orthopnea. Currently denies chest pain. Objective Vital Signs, Last 4 Hours Temp Pulse Resp BP Pulse Ox 11/18/16 07:34 98.0 F 76 16 124/75 95 General: Conversant, No Apparent Distress, Other (On room air) HEENT: Atraumatic, Normocephaly, Mucus Membranes Moist Neck: No JVD, Normal carotid pulses Cardiac: Reg Rate and Rhythm, Normal S1 and S2, No Murmur Lungs: Normal Breath Sounds, No Wheeze, Rales, Rhonchi Neuro: Alert and responsive, No focal deficits noted Abdomen: Soft, Non-Tender Skin: No rashes noted on visualized skin, Other (Abrasion right razo.) Musculoskeletal: No Chest Wall Tenderness Extremities: No Clubbing, No Cyanosis, Normal Pulses, Other (1+ edema in right arm and leg. Redness around right wrist area. C/o pain with palpation. Warm to touch. 2+ edema right foot, 1+ left foot. ) Results 11/18/16 03:07 11/18/16 03:07 Lab Results 11/18/16 11/18/16 03:07 03:07 WBC 4.7 Hgb 9.3 L Hct 30.3 L Plt Count 207 Sodium 143 Potassium 3.8 Chloride 109 Carbon Dioxide 26 BUN 27 H Creatinine 1.72 H Glucose 135 H Calcium 8.4 L Magnesium 1.8 - Imaging and Cardiology Chest Xray: pending Consult Discharge Plan - Plan Referrals: Belem Arroyo CNP [Primary Care Provider] - 11/29/16 8:30 am (Please follow up as schedule...) Deandre Sepulveda DO [Partnered Physician] - 11/19/16 1:10 pm
[2016-11-18] MEDS: Insulin LISPRO 300 UNITS/3 ML VIAL SQ SCH ×5 (10:51→20:49)
[2016-11-18] MEDS: Cholecalciferol (D-3) 1,000 UNIT TABLET PO SCH (10:53)
[2016-11-18] MEDS: Metoprolol XL (24 HR) Succ 50 MG TAB.ER.24H PO SCH (10:53)
[2016-11-18] MEDS: Iron Polysaccharide Complex 150 MG CAPSULE PO SCH (10:53)
[2016-11-18] MEDS: Aspirin Enteric Coated 81 MG Tablet PO SCH (10:54)
[2016-11-18] MEDS: Isosorbide MONOnitrate (24 HR) 60 MG TAB.ER.24H PO SCH (10:54)
[2016-11-18] MEDS: Silvasorb 44.4 ML TUBE TP SCH (10:55)
[2016-11-18] MEDS: Iron Sucrose Complex 250 MG in 0.9 % Sodium Chloride 250 ML IVPB SCH (11:09)
--- NOTE | 2016-11-18 11:35 | Internal Med Progress Note ---
Date of Encounter: 11/18/16 Time of Encounter: 11:34 - Assessment and plan (1) CHF exacerbation Current Visit: Yes Status: Acute Assessment and plan: Acute systolic and diastolic CHF exacerbation. EF previously 50% in 2016, now 35% with moderate diastolic dysfunction. Worsening dyspnea and lower extremity edema. BNP 2773. CXR with pleural effusions. CKD stage III; SCr stable. LHC: s/p PCI to proximal and mid LAD. I/O -1477 Evidence of weight loss Continue diuresis, will switch to PO today Monitor renal function f/u venous dopplers Cardiology input appreciated Qualifiers: Congestive heart failure type: systolic Qualified Code(s): I50.23 - Acute on chronic systolic (congestive) heart failure (2) Anemia Current Visit: Yes Status: Chronic Assessment and plan: Chronic stable Hb ~9 Continue to monitor Hx of iron deficiency anemia, continue iron supplementation Will add stool softeners for constipation Qualifiers: Anemia type: unspecified type Qualified Code(s): D64.9 - Anemia, unspecified (3) CAD (coronary artery disease) Current Visit: Yes Status: Acute Assessment and plan: S/P stent. No chest pain. Continue aspirin, Plavix, beta ben, atorvastatin , and nitrate. Qualifiers: Coronary Disease-Associated Artery/Lesion type: [place] artery [place] vs. transplanted heart: [place] heart Associated angina: with stable angina Qualified Code(s): I25.118 - Atherosclerotic heart disease of [place] coronary artery with other forms of angina pectoris (4) CKD (chronic kidney disease), stage III Current Visit: Yes Status: Acute Assessment and plan: Creatinine level is stable. Nephrology on case. Continue follow-up renal function. (5) Diabetes Current Visit: Yes Status: Chronic Assessment and plan: A1C significantly improved since 2013, HbA1c: 6.9 FS acceptable Patient is on basal and sliding-scale insulin coverage. Continue same Continue ADA diet. Qualifiers: Diabetes mellitus type: type 2 Diabetes mellitus complication status: with circulatory complication Diabetes mellitus complication detail: with other circulatory complications Diabetes mellitus group home insulin use: with group home use Qualified Code(s): E11.59 - Type 2 diabetes mellitus with other circulatory complications; Z79.4 - intermediate (current) use of insulin (6) History of CVA (cerebrovascular accident) Current Visit: Yes Status: Chronic Assessment and plan: No residual deficits on exam (7) HTN (hypertension) Current Visit: Yes Status: Chronic Assessment and plan: BP within acceptable range Continue Imdur, Lasix, Toprol, hydralazine po Qualifiers: Hypertension type: essential hypertension Qualified Code(s): I10 - Essential (primary) hypertension (8) Hypokalemia Current Visit: No Status: Resolved Assessment and plan: Resolved continue to monitor electrolytes and replace as needed (9) DVT prophylaxis Current Visit: No Status: Acute Assessment and plan: Heparin SQ - Subjective Interval history: Patient seen and examined. Resting in chair and reports of feeling the same as yesterday. Noted to have worsening lower extremity edema. Venous dopplers ordered by cardiology. Noted to have worsening renal function. Denies any discomfort at this time - Constitutional Vitals: Temp Pulse Resp BP Pulse Ox 98.0 F 76 16 124/75 95 11/18/16 07:34 11/18/16 07:34 11/18/16 07:34 11/18/16 07:34 11/18/16 07:34 General appearance: Present: A&O X 3, no acute distress, answers questions appropriately - Head Head exam: Present: atraumatic, normocephalic - Eye Eye exam: Present: normal appearance, conjuntiva pink, sclera anicteric - Respiratory Respiratory exam: Absent: respiratory distress, wheezes Additional comments: bibasilar crackles-improved from previous day - Cardiovascular Cardiovascular exam: Present: RRR, +S1, +S2. Absent: diastolic murmur, gallop, rubs, systolic murmur - GI/Abdominal GI/Abdominal exam: Present: normal bowel sounds, soft, no peritoneal signs. Absent: distended, tenderness - Extremities Exam Extremities exam: Present: pedal edema, warm, radial pulses palpable and symetrical. Absent: calf tenderness - Neurological Exam Neurological exam: Present: alert, oriented X3 - Psychiatric Psychiatric exam: Present: normal affect, normal mood Internal Medicine: Result - Labs CBC & Chem 7: 11/18/16 03:07 11/18/16 03:07 Labs: Short CBC 11/18/16 Range/Units 03:07 WBC 4.7 (4.3-11.1) K/mcL Hgb 9.3 L (12.9-16.9) g/dL Hct 30.3 L (37.5-50.1) % Plt Count 207 (140-400) K/mcL Neutrophils # 3.2 (1.6-8.9) K/mcL BMP 11/18/16 03:07 Sodium 143 Potassium 3.8 Chloride 109 Carbon Dioxide 26 BUN 27 H Creatinine 1.72 H Glucose 135 H Calcium 8.4 L - ABG Interpretation ABG results: PT/INR, D-dimer PT 12.3 Seconds (9.4-12.1) H 11/11/16 20:27 Consult Discharge Plan - Plan Referrals: Belem Arroyo CNP [Primary Care Provider] - 11/29/16 8:30 am (Please follow up as schedule...) Deandre Sepulveda DO [Partnered Physician] - 11/19/16 1:10 pm
[2016-11-18] MEDS: Sennosides/Docusate Sodium TABLET PO SCH ×2 (14:06→21:01)
[2016-11-18] MEDS: Furosemide 40 MG TABLET PO SCH (17:01)
[2016-11-18] MEDS: Insulin DETEMIR 100 UNIT/ML X5UNITS SQ SCH (21:03)
[2016-11-19] MEDS: hydrOXYzine pamoate 25 MG CAPSULE PO SCH ×2 (00:42→08:48)
[2016-11-19 04:56] LABS: Basophils % 0.5 %; Eosinophils # 0.1 K/mcL (0.0-0.6); Eosinophils % 2.5 %; Hematocrit 29.9 % (37.5-50.1); Hemoglobin 9.2 g/dL (12.9-16.9); Immature Granulocytes % 0.2 % (0-4); Lymphocytes # 0.7 K/mcL (0.6-4.6); Lymphocytes % 16.7 %; Mean Corpuscular HGB Conc 30.8 g/dL (31.6-35.5); Mean Corpuscular Hemoglobin 25.5 pg (28.0-33.3); Mean Corpuscular Volume 82.8 fL (83.0-100.0); Mean Platelet Volume 11.2 fL (9.4-12.4); Monocytes # 0.4 K/mcL (0.0-1.3); Neutrophils # 2.9 K/mcL (1.6-8.9); Platelet Count 198 K/mcL (140-400); Red Blood Count 3.61 M/mcL (4.19-5.50); Red Cell Distribution Width 15.3 % (11.5-14.5); Segmented Neutrophils % 70.1 %
[2016-11-19 05:11] LABS: Calcium 8.5 mg/dL (8.6-10.8); Magnesium 1.9 mg/dL (1.6-2.6); Phosphorous 4.4 mg/dL (2.3-4.7); Potassium 3.8 mEq/L (3.5-4.5)
[2016-11-19] MEDS: hydrALAZINE 25 MG TABLET PO SCH ×2 (06:15→12:00)
[2016-11-19] MEDS: *HR* Heparin 5,000 UNIT/ML VIAL SQ SCH (06:15)
--- NOTE | 2016-11-19 08:32 | Cardiology Progress Note ---
Date of Encounter: 11/19/16 Time of Encounter: 08:29 Assessment and Plan (1) Acute CHF Current Visit: Yes Status: Acute Acute systolic and diastolic CHF exacerbation. EF previously 50% in 2016, now 35% with moderate diastolic dysfunction. Worsening dyspnea, orthopnea, and lower extremity edema. on admission. BNP 2773. CXR with pleural effusions. CKD stage III; SCr improved from yesterday after stopping IV lasix. BNP decreased to 1755. CXR showed bilateral pleural effusions, left greater than right with bibasilar atelectasis. Mild vascular congestion. Continue oral lasix. Weight down and edema improved. Orthopnea improving. Edema appears to be more one sided. Overall improved. Symptoms multifactoral with CHF, CKD, and hypoalbuminemia. Venous dopplers are negative. BLE nhan wraps on. C: s/p PCI to proximal and mid LAD. Continue betablocker and aldactone. Continue imdur and hydralizine. No ACEi/ARB due to CKD. I&O: -3947 cumulative. Na/fluid restriction diet. Cardiology will sign off. Call with questions. Out-pt f/u in one week will be scheduled. Qualifiers: Congestive heart failure type: combined Qualified Code(s): I50.41 - Acute combined systolic (congestive) and diastolic (congestive) heart failure (2) Ischemic cardiomyopathy Current Visit: Yes Status: Acute EF 35%; ischemic in etiology. [facility] on 11/13/16--severe 3v CAD, evaluated by CT surgery who recommended multi- vessel PCI. [facility] 11/14/16: successful PTCA/ELIANA to proximal and mid LAD. Existing 99% Ramus; and severe small vessel disease. Will likely need staged procedure for PCI to ramus-- outpatient. Denies recurrent chest pain. DAPT (asa + plavix) therapy uninterrupted for at least 1 year. Continue betablocker, nitrates, and statin. Cardiac rehab consulted. (3) CKD (chronic kidney disease), stage III Current Visit: Yes Status: Acute Nephrology following. Creatinine improved. Discussion w patient/family: The assessment and plan as outlined above was discussed with the patient and/or family members who expressed understanding and agreement. All questions were answered. Thank you for involving us in the care of your patient. Please call with any questions. Subjective Principal diagnosis: CAD, CHF Interval history: Pt sitting in chair without any discomfort. On room air. States he was able to lay flat for venous dopplers yesterday without oxygen but he felt a little SOB. Objective Vital Signs Temp Pulse Resp BP Pulse Ox 11/19/16 04:14 97.9 F 82 17 144/71 94 11/19/16 04:09 97.8 F 72 17 125/78 93 11/18/16 23:40 97.7 F 80 16 122/74 92 11/18/16 20:00 97.7 F 80 16 135/80 95 11/18/16 16:41 97.5 F L 77 16 139/92 98 11/18/16 11:49 97.3 F L 76 16 146/87 97 Intake and Output 11/18/16 11/19/16 11/19/16 23:59 07:59 15:59 Intake Total 500 / 500 Output Total 450 / 450 Balance 50 / 50 Intake: Oral 500 / 500 Output: Urine 450 / 450 Other: Stool Size Large Stool Color Brown Blood Glucose* 163 General: Conversant, No Apparent Distress HEENT: Atraumatic, Normocephaly, Mucus Membranes Moist Neck: No JVD, Normal carotid pulses Cardiac: Reg Rate and Rhythm, Normal S1 and S2, No Murmur Lungs: Normal Breath Sounds, No Wheeze, Rales, Rhonchi Neuro: Alert and responsive, No focal deficits noted Abdomen: Soft, Non-Tender Skin: No rashes noted on visualized skin Musculoskeletal: No Chest Wall Tenderness Extremities: No Clubbing, No Cyanosis, Normal Pulses, Other (1+ edema RLE. Trace edema RUE. ) Results 11/19/16 04:34 11/19/16 04:34 Lab Results 11/18/16 11/19/16 11/19/16 03:07 04:34 04:34 WBC 4.1 L Hgb 9.2 L Hct 29.9 L Plt Count 198 Sodium 143 Potassium 3.8 Chloride 110 H Carbon Dioxide 26 BUN 27 H Creatinine 1.59 H Glucose 112 H Calcium 8.5 L Magnesium 1.9 B-Natriuretic Peptide 1751 H Chest X-Ray 11/18/16 10:37 IMPRESSION: Bilateral pleural effusions, left greater than right with bibasilar atelectasis. Mild vascular congestion. D/ / 11/18/2016 16:24:33 Lulu Jack MD / chito Interpreting Provider: Lulu Jack MD - Imaging and Cardiology Chest Xray: report reviewed Consult Discharge Plan - Plan Referrals: Belem Arroyo CNP [Primary Care Provider] - 11/29/16 8:30 am (Please follow up as schedule...) Deandre Sepulveda, [Partnered Physician] - 11/19/16 1:10 pm (Please follow up as schedule...) Fiona Barker CNP [Partnered Physician] - 11/23/16 11:00 am (Please follow up as schedule..)
[2016-11-19] MEDS: Insulin LISPRO 300 UNITS/3 ML VIAL SQ SCH ×2 (08:40→11:57)
[2016-11-19] MEDS: Isosorbide MONOnitrate (24 HR) 60 MG TAB.ER.24H PO SCH (08:46)
[2016-11-19] MEDS: Cholecalciferol (D-3) 1,000 UNIT TABLET PO SCH (08:47)
[2016-11-19] MEDS: Iron Polysaccharide Complex 150 MG CAPSULE PO SCH (08:48)
[2016-11-19] MEDS: Metoprolol XL (24 HR) Succ 50 MG TAB.ER.24H PO SCH (08:48)
[2016-11-19] MEDS: Sennosides/Docusate Sodium TABLET PO SCH ×2 (08:48→08:53)
[2016-11-19] MEDS: Aspirin Enteric Coated 81 MG Tablet PO SCH (08:49)
[2016-11-19] MEDS: Furosemide 40 MG TABLET PO SCH (08:49)
[2016-11-19] MEDS ORDERED: Folic Acid 1 MG TABLET PO SCH (09:00)
[2016-11-19] MEDS: Iron Sucrose Complex 250 MG in 0.9 % Sodium Chloride 250 ML IVPB SCH (10:13)
[2016-11-19] MEDS: Silvasorb 44.4 ML TUBE TP SCH (10:18)
--- NOTE | 2016-11-19 10:52 | Nephrology Progress Note ---
Date of Encounter: 11/19/16 Time of Encounter: 09:40 - Assessment and Plan (1) CKD (chronic kidney disease), stage III Current Visit: Yes Status: Chronic Creatinine improved from 1.8->1.86 on admission to 1.59 today. Initial improvement likely secondary to better perfusion to the kidneys, s/p cardiac intervention with stenting and diuresis. Continued renal protective measures. Monitor kidney function closely while diuretics in use. Diuretics switched from IV to PO. Patient responding well. (2) CAD (coronary artery disease) Current Visit: Yes Status: Acute Per primary and cardiology teams. Patient s/p [facility] with stenting. Qualifiers: Coronary Disease-Associated Artery/Lesion type: [place] artery [place] vs. transplanted heart: [place] heart Associated angina: with stable angina Qualified Code(s): I25.118 - Atherosclerotic heart disease of [place] coronary artery with other forms of angina pectoris (3) CHF (congestive heart failure) Current Visit: Yes Status: Acute Per primary and cardiology teams. Patient on lasix 40mg PO BID. Qualifiers: Congestive heart failure type: diastolic Congestive heart failure chronicity: unspecified congestive heart failure chronicity Qualified Code(s) : I50.30 - Unspecified diastolic (congestive) heart failure (4) Iron deficiency anemia Current Visit: No Status: Chronic Replacing with Iron sucrose. This should not prevent discharge as iron replacement can be arranged as outpatient. Qualifiers: Iron deficiency anemia type: unspecified iron deficiency Qualified Code(s) : D50.9 - Iron deficiency anemia, unspecified (5) Folate deficiency Current Visit: Yes Status: Acute Folate 6.9. Start replacement with folic acid.. Subjective Principal diagnosis: CAD, CHF Interval history: Patient seen and examined at bedside. No new complaints, states he still has orthopnea. Objective - Vital Signs Vital signs: Vital Signs Temp Pulse Resp BP Pulse Ox 11/19/16 07:58 97.3 F L 80 16 134/79 96 11/19/16 04:14 97.9 F 82 17 144/71 94 11/19/16 04:09 97.8 F 72 17 125/78 93 11/18/16 23:40 97.7 F 80 16 122/74 92 11/18/16 20:00 97.7 F 80 16 135/80 95 11/18/16 16:41 97.5 F L 77 16 139/92 98 11/18/16 11:49 97.3 F L 76 16 146/87 97 Intake and Output 11/18/16 11/19/16 11/19/16 23:59 07:59 15:59 Intake Total 500 / 500 Output Total 450 / 450 Balance 50 / 50 Intake: Oral 500 / 500 Output: Urine 450 / 450 Other: Stool Size Large Stool Color Brown Blood Glucose* 163 74 - General Appearance General appearance: Present: well-developed, well-nourished, appears started age EENT: Present: mucous membranes moist, hearing intact, vision intact Neck: Present: supple Respiratory: Present: clear Cardiology: Present: edema (2+ RLE edema, 1+ LLE edema), regular rate, regular rhythm Integumentary: Present: no rash, warm and dry Neurologic: Present: no focal deficit, alert and oriented x3 Musculoskeletal: Present: no deformities, no erythema, no cyanosis Psychiatric: Present: mood/affect appropriate, cooperative - Lab 11/19/16 04:34 11/19/16 04:34 Most recent lab results Calcium 8.5 mg/dL (8.6-10.8) L 11/19/16 04:34 Phosphorus 4.4 mg/dL (2.3-4.7) 11/19/16 04:34 Magnesium 1.9 mg/dL (1.6-2.6) 11/19/16 04:34 Consult Discharge Plan - Plan Instructions: Heart Failure (DC), Left Heart Catheterization (DC), Anemia (GEN) Additional Instructions: Please follow up with your primary care physician, services host, and visual basic developer as per the listed appointments above. Your home medications have been readjusted: Spironolactone dose has been decreased Metoprolol dose has been changed Isosorbide Nitrate dose has been changed Lasix dose has been changed Plavix has been added Atorvastatin dose has been increased Please notify the above changes in your home medications and inform your primary care physician of these changes. Continue to take Aspirin and plavix as prescribed. Please seek medical help if chest pain reoccurs or you have difficulty breathing. Resume all other home medications as prescribed by your primary care physician. Referrals: Belem Arroyo CNP [Primary Care Provider] - 11/29/16 8:30 am (Please follow up as schedule...) Deandre Sepulveda DO [Partnered Physician] - 11/19/16 1:10 pm (Please follow up as schedule...) Fiona Barker CNP [Partnered Physician] - 11/23/16 11:00 am (Please follow up as schedule..) Prescriptions: HydrALAZINE 25 mg PO Q6HR #60 tablet Atorvastatin [Lipitor] 80 mg PO HS #30 tablet Clopidogrel [Plavix] 75 mg PO DAILY #30 tablet Furosemide [Lasix] 40 mg PO BID #60 tablet Isosorbide MONOnitrate (24 HR) [Imdur] 90 mg PO DAILY #30 tab.er.24h Metoprolol XL (24 HR) Succ [Toprol Xl] 150 mg PO DAILY #30 tab.er.24h Sennosides/Docusate Sodium [Senna Plus] 2 each PO BID PRN #30 tablet PRN Reason: Constipation Spironolactone [Aldactone] 25 mg PO DAILY #30 tablet
[2016-11-19 11:52] VITALS: BP 130/76
--- NOTE | 2016-11-19 12:53 | Discharge Summary ---
Date of Encounter: 11/19/16 Time of Encounter: 11:25 - Discharge Diagnosis (1) CHF exacerbation Priority: Primary Status: Acute Qualifiers: Congestive heart failure type: systolic Qualified Code(s): I50.23 - Acute on chronic systolic (congestive) heart failure (2) Anemia Priority: Secondary Status: Chronic Qualifiers: Anemia type: unspecified type Qualified Code(s): D64.9 - Anemia, unspecified (3) CAD (coronary artery disease) Priority: Secondary Status: Acute Qualifiers: Coronary Disease-Associated Artery/Lesion type: [place] artery [place] vs. 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 use: with correction use Qualified Code(s): E11.59 - Type 2 diabetes mellitus with other circulatory complications; Z79.4 - correction (current) use of insulin (6) History of CVA (cerebrovascular accident) Priority: Secondary Status: Chronic (7) HTN (hypertension) Priority: Secondary Status: Chronic Qualifiers: Hypertension type: essential hypertension Qualified Code(s): I10 - Essential (primary) hypertension (8) Hypokalemia Priority: Secondary Status: Resolved (9) DVT prophylaxis Priority: Secondary Status: Acute - Discharge Medications Prescriptions: HydrALAZINE 25 mg PO Q6HR #60 tablet Atorvastatin [Lipitor] 80 mg PO HS #30 tablet Clopidogrel [Plavix] 75 mg PO DAILY #30 tablet Furosemide [Lasix] 40 mg PO BID #60 tablet Isosorbide MONOnitrate (24 HR) [Imdur] 90 mg PO DAILY #30 tab.er.24h Metoprolol XL (24 HR) Succ [Toprol Xl] 150 mg PO DAILY #30 tab.er.24h Sennosides/Docusate Sodium [Senna Plus] 2 each PO BID PRN #30 tablet PRN Reason: Constipation Spironolactone [Aldactone] 25 mg PO DAILY #30 tablet Home Medications: Aspirin Enteric Coated [Aspirin EC] 81 mg PO DAILY #90 tablet. 08/22/15 [Rx] Sertraline [Zoloft] 50 mg PO DAILY #60 tablet 08/22/15 [Rx] Hydroxyzine HCl 25 mg PO Q8H 02/10/16 [History] Insulin ASPART [NovoLOG] 10 unit SQ PRN PRN 02/11/16 [History] Insulin Glargine [Lantus] 30 units SQ HS 02/11/16 [History] Potassium Chloride [Klor-Con 10] 10 meq PO DAILY 06/17/16 [History] Iron Polysaccharide Complex [Ferrex 150] 150 mg PO DAILY 07/09/16 [History] Cholecalciferol (Vitamin D3) [Vitamin D3] 2,000 unit PO DAILY 11/11/16 [History] Atorvastatin [Lipitor] 80 mg PO HS #30 tablet 11/19/16 [Rx] Clopidogrel [Plavix] 75 mg PO DAILY #30 tablet 11/19/16 [Rx] Furosemide [Lasix] 40 mg PO BID #60 tablet 11/19/16 [Rx] HydrALAZINE 25 mg PO Q6HR #60 tablet 11/19/16 [Rx] Isosorbide MONOnitrate (24 HR) [Imdur] 90 mg PO DAILY #30 tab.er.24h 11/19/16 [ Rx] Metoprolol XL (24 HR) Succ [Toprol Xl] 150 mg PO DAILY #30 tab.er.24h 11/19/16 [ Rx] Sennosides/Docusate Sodium [Senna Plus] 2 each PO BID PRN #30 tablet 11/19/16 [ Rx] Spironolactone [Aldactone] 25 mg PO DAILY #30 tablet 11/19/16 [Rx] Allergies/Adverse Reactions: Allergies No Known Allergies Allergy (Verified 11/11/16 18:28) Procedures/tests Complete & Pending: Procedures Performed prior 72 hours Category Date Time Status Venous Doppler [EV venous imaging LE RT] Routine Y 11/18/16 10:42 Completed Venous Doppler [EV venous imaging UE RT] Routine Y 11/18/16 10:30 Completed Date of admission: 11/12/16 18:49 Primary care physician: Belem Arroyo CNP Consults: 11/13/16 11:03 Consult to Nephrology [CONS] Routine Consulting Provider: Kidney Otoe/YESENIA/OPAL/JOSE Reason for Consult: CKD III going for CAth Call Completed: Yes 11/13/16 15:32 Consult to Cardiothoracic Surgery [CONS] Routine Consulting Provider: Cardiothoracic Surgery Lita Reason for Consult: 3VCAD, eval for CABG Call Completed: Yes 11/14/16 15:05 Consult to Cardiac Rehabilitation-Phase1 [CONS] Routine Comment: Reason for Consult: CAD s/p PCI, CMP Call Completed: Yes 11/15/16 12:01 Consult to Invasive Line Access Team [CONS] Routine Reason for Consult: poor access Line Type: EPIV 11/15/16 16:53 Consult to Occupational Therapy [CONS] Routine Comment: Evaluate, develop and implement POC Reason for Consult: EVAL AND TREAT Consult to Physical Therapy [CONS] Routine Comment: Evaluate, develop and implement POC Reason for Consult: EVAL AND TREAT Discharging clinician: Ally Stern Anticipated date of discharge: 11/19/16 - Patient Status Disposition: Home, Self-Care Condition: Good Functional capacity at discharge: independent ambulation Overall status at discharge: patient is back to baseline - Discharge Instructions Follow Up With: Belem Arroyo CNP [Primary Care Provider] - 11/29/16 8:30 am (Please follow up as schedule...) Deandre Sepulveda DO [Partnered Physician] - 11/19/16 1:10 pm (Please follow up as schedule...) Fiona Barker CNP [Partnered Physician] - 11/23/16 11:00 am (Please follow up as schedule..) Additional Instructions: Please follow up with your primary care physician, political organizer, and sec reporting consultant as per the listed appointments above. Your home medications have been readjusted: Spironolactone dose has been decreased Metoprolol dose has been changed Isosorbide Nitrate dose has been changed Lasix dose has been changed Plavix has been added Atorvastatin dose has been increased Please notify the above changes in your home medications and inform your primary care physician of these changes. Continue to take Aspirin and plavix as prescribed. Please seek medical help if chest pain reoccurs or you have difficulty breathing. Resume all other home medications as prescribed by your primary care physician. - Diet and Activity Activity: resume usual activities as tolerated Diet: diabetic diet, low salt diet Hospital course: Mr. Richter is a 51 year old male with PMH of CHF, CAD, DM, CVA, HLD, HTN, CKD III, c/c worsening bilateral pitting edema and SOB. Patient was admitted for acute CHF and ischemic CMP and underwent LHC with ELIANA placement. He was noted to have iron deficiency anemia and ELVIA on CKD for which nephrology was consulted. Pt's renal function improved after LHC with ELIANA placement and he has been tolerating diuretic therapy well. His respiratory distress has resolved and he is hemodynamically stable. He will be discharged to home with follow up with Cardiology, nephrology, and PCP after discharge. Patient demonstrates understanding of his diagnosis and agrees with the discharge care and plan. - Time Spent with Patient Total time spent providing and/or coordinating discharge services: Greater than 30 minutes - Constitutional Vitals: Temp Pulse Resp BP Pulse Ox 97.1 F L 74 16 130/76 99 11/19/16 11:45 11/19/16 11:45 11/19/16 11:45 11/19/16 11:45 11/19/16 11:45 General appearance: Present: A&O X 3, no acute distress, answers questions appropriately - Head Head exam: Present: atraumatic, normocephalic - Eye Eye exam: Present: normal appearance, conjuntiva pink, sclera anicteric - Respiratory Respiratory exam: Present: CTAB. Absent: respiratory distress, wheezes - Cardiovascular Cardiovascular exam: Present: RRR, +S1, +S2. Absent: diastolic murmur, gallop, rubs, systolic murmur - GI/Abdominal GI/Abdominal exam: Present: normal bowel sounds, soft. Absent: distended, tenderness - Extremities Exam Extremities exam: Present: pedal edema, warm, radial pulses palpable and symetrical. Absent: calf tenderness - Neurological Exam Neurological exam: Present: alert, oriented X3 - Psychiatric Psychiatric exam: Present: normal affect, normal mood
--- NOTE | 2016-11-19 17:25 | Venous Imaging Report ---
LE Venous Duplex Patient Name:Neema Richter Order Number:[id number] Procedure Date:11/18/2016 Date:1965Age:51 yrs Gender:Male Location:[facility] Room #: 2A26 [place] Apprentice:Kalyani Franks Referring MD:Trell Cody CNP safety coordinator:Belem Arroyo CNP Reading MD:Richie Cody MD Primary Indications:Edema Secondary Indications: Risk Factors Yes/No Anticoagulants Impressions: Right lower extremity: normal superficial and deep exam. Findings Prior Study: No prior study available for comparison. Lower Extremity Venous Duplex Side Vein Compress Spontaneous Flow Augment Diameter (cm) Depth (cm) Right Distal Iliac Normal Yes Phasic Yes Right Common Femoral Normal Yes Phasic Yes Right Superficial Femoral Normal Yes Phasic Yes Right Popliteal Normal Yes Phasic Yes Right Posterior Tibial Normal Yes Phasic Yes Right Peroneal Normal Yes Phasic Yes Right Saphenofemoral [place] Normal Yes Phasic Yes Right Great Saphenous Normal Yes Phasic Yes Right Lesser Saphenous Normal Yes Phasic Yes Left Common Femoral Normal Yes Phasic Yes Updated by Richie Cody MD on 11/19/2016 5:19:16 PM electronically signed on 11/19/2016 5:19:32 PM with status of Final
--- NOTE | 2016-11-19 17:35 | Venous Imaging Report ---
UE Venous Duplex Patient Name:Neema Richter Order Number:[id number] Procedure Date:11/18/2016 Date:1965Age:51 yrs Gender:Male Location:[facility] Room #: 2A26 Director Of Teacher Education:Kalyani Franks Referring MD:Trell Cody CNP third hand:Belem Arroyo CNP Reading MD:Richie Cody MD Primary Indications:Pain/Swelling Secondary Indications: Risk Factors Yes/No Anticoagulants Impressions: Right upper extremity: normal superficial and deep exam. Findings Prior Study: No prior study available for comparison. Upper Extremity Venous Duplex Side Vein Compress Spontaneous Flow Augment Right Jugular Normal Yes Phasic Yes Right Subclavian Normal Yes Phasic Yes Right Axillary Normal Yes Phasic Yes Right Brachial Normal Yes Phasic Yes Right Cephalic Normal Yes Phasic Yes Right Basilic Normal Yes Phasic Yes Right Radial Normal Yes Phasic Yes Right Ulnar Normal Yes Phasic Yes Left Subclavian Normal Yes Phasic Yes Updated by Richie Cody MD on 11/19/2016 5:28:08 PM electronically signed on 11/19/2016 5:28:40 PM with status of Final
== END 2016-11-19 15:23 | disposition home or self-care (01) | DRG 246 ==
LOC: EMEROO 18:06 → 2NENU 18:06 → SUATTDRO 11-12 18:49 → 2NNU 11-14 15:34 → 2ANU 11-16 11:49
PROVIDERS: ADMIT Internal Medicine; ATTEND Internal Medicine